=== PATIENT | male | born 1975 | race Caucasian/White ===

== ENCOUNTER 2017-03-22 22:10 | Emergency (ER) | payer MEDICARE ==
[~2017-03-22] VITALS: Ht 180.3 cm; Wt 136.1 kg
[~2017-03-22 22:10] MED LIST: AGM875T PO; CYCL10TA9 PO; DEPAKOTE; DIVA500T PO; DIVA500T7 PO; ESCI10TA55 PO; ESCI20TA45 PO; HC A28.3 PR; HYDR-1231 PO; HYDR25TA4 PO; HYDROCODONE PO; IBUPROFEN PO; INDO50CA PO; LEVO750T24 PO; LEVO75TA6 PO; LORA0.5T PO; NAPR-243 PO; OLAN7.5T9 PO; OMEP40CA36 PO; PNT40TEC PO; POTA10TA36 PO; PROP60CA PO; QUET50TA PO; QUET50TA49 PO; SCR1T PO; SUCR1TAB23 PO; TPR100T PO; TPR25T PO; VNL75T PO
--- OUTSIDE RECORDS SUMMARY | 2017-03-22 22:15 | XMS REPORT | Clinical Summary ---
Author Author [facility] Organization [facility] Address Unknown Phone Unavailable Care Team Providers Care Corporate Development Analyst Name Role Phone PCP Unavailable Source Comments Some departments are not documenting in the electronic medical record. If you do not see the information that you expected, contact Release of Information in the Health Information Management department at [phone] for further assistance in locating additional records.[facility] Allergies Active Allergy Reactions Severity Noted Date Comments Allergen Exr-Ppqwm-Onirb ANAPHYLAXIS 09/03/2008 Bee Current Medications Prescription Sig. Disp. Refills Start End Date Status Date vitamins, multiple Cap Take 1 Cap by mouth Active Daily. topiramate (TOPAMAX) 25 Take 1 Tab by mouth At 90 1 09/05/19 Active mg tablet Bedtime Daily. 09 Active Problems Problem Noted Date Spells 09/04/2008 Social History Tobacco Use Types Packs/Day Years Used Date Never Smoker Alcohol Use Drinks/Week oz/Week Comments Yes 3 Cans of 36.0 beer Sex Assigned at Date Recorded Not on file Last Filed Vital Signs Vital Sign Reading Time Taken Blood Pressure 134/83 09/04/2008 3:00 PM CDT Pulse 76 09/04/2008 3:00 PM CDT Temperature 36.8 C (98.2 F) 09/04/2008 3:00 PM CDT Respiratory Rate - - Oxygen Saturation 98% 09/04/2008 3:00 PM CDT Inhaled Oxygen - - Concentration Weight 98 kg (216 lb) 09/03/2008 2:00 PM CDT Height 180.3 cm (5' 11") 09/03/2008 2:00 PM CDT Body Mass Index 30.13 09/03/2008 2:00 PM CDT Plan of Treatment Health Maintenance Due Date Last Done Comments PHYSICAL (COMPREHENSIVE) 1980 EXAM PERTUSSIS VACCINE 1984 TETANUS VACCINE 1990 INFLUENZA VACCINE 10/27/2016 Results Not on filefrom Last 3 Months
--- OUTSIDE RECORDS SUMMARY | 2017-03-22 22:16 | XMS REPORT | Continuity of Care Document ---
Author Author [facility] Organization [facility] Address Unknown Phone Unavailable Allergies Active Description Code Type Severity Reaction Onset Reported/Identified Relationship to Patient Clinical Status Yes No Known Drug Allergies [id number] Drug Allergy Unknown N/A 06/05/2012 Medications There is no data. Problems Date Dx Coded Attending Type Code Diagnosis Diagnosed By 06/09/2012 Ot 311 06/09/2012 Ot 345.90 06/09/2012 Ot 486 06/09/2012 Ot V15.52 06/09/2012 Ot V45.89 02/10/2014 CRISTHIAN PANDYA Ot 455.6 02/10/2014 CRISTHIAN PANDYA Ot 569.3 02/10/2014 CRISTHIAN PANDYA Ot 578.1 04/03/2014 BYRON SHAW DO Ot 530.11 04/03/2014 BYRON SHAW DO Ot 535.50 04/03/2014 BYRON SHAW DO Ot 553.3 04/03/2014 BYRON SHAW DO Ot 569.0 04/03/2014 BYRON SHAW DO Ot 578.1 08/04/2014 CRISTHIAN PANDYA Ot 276.50 08/04/2014 CRISTHIAN PANDYA Ot 786.50 08/04/2014 CRISTHIAN PANDYA Ot 922.1 08/04/2014 CRISTHIAN PANDYA Ot 922.2 08/04/2014 CRISTHIAN PANDYA Ot E000.8 08/04/2014 CRISTHIAN PANDYA Ot E906.8 08/18/2014 BYRON SHAW DO Ot V72.84 08/18/2014 DOC LY APRN Ot 511.9 08/18/2014 DOC LY APRN Ot 786.52 08/18/2014 DOC LY APRN Ot V15.59 03/23/2016 LY, PETER J PROGRESS DEVELOPER Ot R19.7 DIARRHEA, UNSPECIFIED 03/23/2016 DOC LY PROGRESS DEVELOPER Ot R50.9 FEVER, UNSPECIFIED 03/28/2016 DOC LY PROGRESS DEVELOPER Ot R19.7 DIARRHEA, UNSPECIFIED 03/28/2016 DOC LY PROGRESS DEVELOPER Ot R50.9 FEVER, UNSPECIFIED 03/29/2016 DOC LY PROGRESS DEVELOPER Ot R19.7 DIARRHEA, UNSPECIFIED 03/29/2016 DOC LY PROGRESS DEVELOPER Ot R50.9 FEVER, UNSPECIFIED Procedures There is no data. Results Test Result Range Complete blood count (CBC) with automated white blood cell (WBC) differential - 03/23/16 19:45 Blood leukocytes automated count (number/volume) 5.2 10*3/uL 4.3-11.0 Blood erythrocytes automated count (number/volume) 4.84 10*6/uL 4.35-5.85 Venous blood hemoglobin measurement (mass/volume) 15.2 g/dL 13.3-17.7 Blood hematocrit (volume fraction) 44 % 40-54 Automated erythrocyte mean corpuscular volume 90 [foz_us] 80-99 Automated erythrocyte mean corpuscular hemoglobin (mass per erythrocyte) 31 pg 25-34 Automated erythrocyte mean corpuscular hemoglobin concentration measurement ( mass/volume) 35 g/dL 32-36 Automated erythrocyte distribution width ratio 13.5 % 10.0-14.5 Automated blood platelet count (count/volume) 163 10*3/uL 130-400 Automated blood platelet mean volume measurement 10.5 [foz_us] 7.4-10.4 Automated blood neutrophils/100 leukocytes 61 % 42-75 Automated blood lymphocytes/100 leukocytes 25 % 12-44 Blood monocytes/100 leukocytes 12 % 0-12 Automated blood eosinophils/100 leukocytes 2 % 0-10 Automated blood basophils/100 leukocytes 0 % 0-10 Blood neutrophils automated count (number/volume) 3.1 10*3 1.8-7.8 Blood lymphocytes automated count (number/volume) 1.3 10*3 1.0-4.0 Blood monocytes automated count (number/volume) 0.6 10*3 0.0-1.0 Automated eosinophil count 0.1 10*3/uL 0.0-0.3 Automated blood basophil count (count/volume) 0.0 10*3/uL 0.0-0.1 Comprehensive metabolic panel - 03/23/16 19:45 Serum or plasma sodium measurement (moles/volume) 136 mmol/L 135-145 Serum or plasma potassium measurement (moles/volume) 3.0 mmol/L 3.6-5.0 Serum or plasma chloride measurement (moles/volume) 104 mmol/L 98-107 Carbon dioxide 20 mmol/L 21-32 Serum or plasma anion gap determination (moles/volume) 12 mmol/L 5-14 Serum or plasma urea nitrogen measurement (mass/volume) 16 mg/dL 7-18 Serum or plasma creatinine measurement (mass/volume) 0.95 mg/dL 0.60-1.30 Serum or plasma urea nitrogen/creatinine mass ratio 17 NRG Serum or plasma creatinine measurement with calculation of estimated glomerular filtration rate > NRG Serum or plasma glucose measurement (mass/volume) 131 mg/dL 70-105 Serum or plasma calcium measurement (mass/volume) 8.4 mg/dL 8.5-10.1 Serum or plasma total bilirubin measurement (mass/volume) 0.4 mg/dL 0.1-1.0 Serum or plasma alkaline phosphatase measurement (enzymatic activity/volume) 55 U/L 40-136 Serum or plasma aspartate aminotransferase measurement (enzymatic activity/ volume) 65 U/L 5-34 Serum or plasma alanine aminotransferase measurement (enzymatic activity/volume ) 90 U/L 0-55 Serum or plasma protein measurement (mass/volume) 6.6 g/dL 6.4-8.2 Serum or plasma albumin measurement (mass/volume) 3.8 g/dL 3.2-4.5 Encounters ACCT No. Visit Date/Time Discharge Status Pt. Type Provider Facility Loc./Unit Complaint [id number] 03/23/2016 19:27:00 03/23/2016 22:53:00 DIS Emergency DOC LY APRN [facility] ER DIARRHEA,FEVER [id number] 08/18/2014 16:24:00 08/18/2014 18:37:00 DIS Emergency DOC LY APRN [facility] ER [id number] 08/04/2014 19:31:00 08/04/2014 21:57:00 DIS Emergency CRISTHIAN PANDYA [facility] ER [id number] 04/03/2014 12:06:00 04/03/2014 15:55:00 DIS Outpatient BYRON SHAW DO [facility] SDC [id number] 03/28/2014 06:15:00 03/28/2014 23:59:59 CLS Outpatient BYRON SHAW DO [facility] PREOP [id number] 02/10/2014 14:25:00 02/10/2014 17:08:00 DIS Emergency CRISTHIAN PANDYA [facility] ER [id number] 06/05/2012 20:30:00 Document Registration
[2017-03-22] MEDS ORDERED: NYSTATIN ORAL SUSP 5 ML UDC PO ONE (22:30)
[2017-03-22] MEDS ORDERED: FLUCONAZOLE 150 MG TABLET (ED ONLY) PO ONE (22:30)
[2017-03-22] MEDS ORDERED: NYST1000 PO (22:51)
--- NOTE | 2017-03-22 22:52 | ED EENT ---
History of Present Illness General Chief Complaint: Oral/Throat Problems Stated Complaint: SORE THROAT,COUGH Nursing Triage Note: c/o sore throat Source: patient Exam Limitations: no limitations History of Present Illness Time seen by provider: 22:15 Initial Comments This 41-year-old gentleman presents to the emergency room with complaints of burning and soreness in the tongue and throat. He had a laminectomy performed on L4/5 on March 17. His reports there are white spots in his throat. His glands are swollen. He was not given any steroids or antibiotics that he is aware of but his posterior pharynx and the roof of his mouth has the appearance of thrush. He has been afebrile. Allergies and Home Medications Allergies Coded Allergies: No Known Drug Allergies (Unverified , 06/05/12) Home Medications Divalproex Sodium 500 Mg Tablet.dr, 1 TAB PO UD, #120 (Reported) Escitalopram Oxalate 10 Mg Tablet, 1 TAB PO DAILY, #30 (Reported) Escitalopram Oxalate 20 Mg Tablet, 1 TAB PO DAILY, #30 (Reported) Hydrochlorothiazide 25 Mg Tablet, 1 TAB PO UD, #30 (Reported) Hydrocodone Bit/Acetaminophen 1 Tab Tablet, 1 TAB PO Q4H PRN for PAIN, #14 Ref 0 Prescribed by: CRISTHIAN TONG on 08/04/14 2142 Levothyroxine Sodium 75 Mcg Tablet, 1 TAB PO DAILY, #30 (Reported) Nystatin 100,000 Unit/1 Ml Oral.susp, 5 ML PO QID, #120 Prescribed by: DESHAWN HOLLY on 03/22/17 2251 Olanzapine 7.5 Mg Tablet, 1 TAB PO DAILY, #30 (Reported) Propranolol HCl 60 Mg Cap.sa.24h, 1 CAP PO DAILY, #30 (Reported) Venlafaxine Hcl 75 Mg Tab, 150 MG PO DAILY, (Reported) Review of Systems Constitutional: no symptoms reported Eyes: No Symptoms Reported Ears: No Symptoms Reported Nose: no symptoms reported Mouth: see HPI Throat: see HPI Respiratory: no symptoms reported Cardiovascular: no symptoms reported Gastrointestinal: no symptoms reported Musculoskeletal: no symptoms reported Skin: no symptoms reported Neurological: No Symptoms Reported Hematologic/Lymphatic: See HPI Immunological/Allergic: no symptoms reported Past Dfzfmqe-Yzbwyq-Jlmgcm Hx Patient Social History Alcohol Use: Denies Use Number of Drinks Today: AA Alcohol Beverage of Choice: Beer Recreational Drug Use: No Smoking Status: Never a Smoker Recent Foreign Travel: No Contact w/Someone Who Travel: No Recent Infectious Disease Expo: No Recent Hopitalizations: No Physical Abuse: No Sexual Abuse: No Immunizations Up To Date Tetanus Booster (TDap): Less than 5yrs Date of Pneumonia Vaccine: Apr 14, 2011 Date of Influenza Vaccine: Dec 27, 2013 Seasonal Allergies Seasonal Allergies: No Surgeries History of Surgeries: Yes (ROTATOR CUFF REPAIR RT SHOULDER/LT TORN LIGAMENT REPAIR ) Surgeries: Orthopedic Respiratory History of Respiratory Disorde: Yes (SLEEP APNEA, USES C-PAP) Respiratory Disorders: Pneumonia, Chronic Bronchitis Currently Using CPAP: Yes Currently Using BIPAP: No Cardiovascular History of Cardiac Disorders: Yes Cardiac Disorders: Hypertension Neurological History of Neurological Disord: Yes (HEAD INJURY 2008 (BUILDING COLAPSE)) Neurological Disorders: Seizure Disorder Reproductive System Hx Reproductive Disorders: No Gastrointestinal History of Gastrointestinal Di: Yes Gastrointestinal Disorders: Gastroesophageal Reflux Musculoskeletal History of Musculoskeletal Dis: Yes (HERNIATED DISC) Musculoskeletal Disorders: Arthritis, Fractures, Gout Endocrine History of Endocrine Disorders: Yes Endocrine Disorders: Hypothyroidsim Cancer History of Cancer: No Psychosocial History of Psychiatric Problem: Yes Behavioral Health Disorders: Anxiety Suicide Risk Score: 0 Integumentary History of Skin or Integumenta: No Blood Transfusions History of Blood Disorders: No Physical Exam Vital Signs Vital Sign - Last 12Hours 03/22/17 22:17 Temp 99.1 Pulse 103 Resp 18 B/P (MAP) 140/95 (110) Pulse Ox 98 General Appearance: WD/WN, no apparent distress Eyes: bilateral eye normal inspection, bilateral eye EOMI Ears: bilateral ear auricle normal, bilateral ear canal normal, bilateral ear TM normal Nose: normal inspection Mouth/Throat: other (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, no motor/sensory deficits, alert, normal mood/affect, oriented x 3 Skin: normal color, warm/dry Progress/Results/Core Measures Results/Orders My Orders Orders - DESHAWN COLBERT MD Fluconazole Tablet (Ed Only) (Diflucan T (03/22/17 22:30) Nystatin Oral Suspension (Mycostatin O (03/22/17 22:30) Medications Given in ED Current Medications Medications Dose Ordered Sig/Asaf Route Start Time Stop Time Status Last Admin Dose Admin Fluconazole 150 mg ONCE ONCE PO 03/22/17 22:30 03/22/17 22:31 DC 03/22/17 22:41 150 MG Nystatin 5 ml ONCE ONCE PO 03/22/17 22:30 03/22/17 22:31 DC 03/22/17 22:41 5 ML Vital Signs/I&O Vital Sign - Last 12Hours 03/22/17 03/22/17 22:17 22:54 Temp 99.1 99.1 Pulse 103 103 Resp 18 18 B/P (MAP) 140/95 (110) Pulse Ox 98 98 Blood Pressure Mean: 110 Progress Note : Progress Note Throat oropharynx had the appearance of thrush. Patient was given a dose of Diflucan and nystatin swish and swallow. A nystatin swish and swallow prescription was given to follow. Departure Impression Impression: Primary Impression: Oropharyngeal candidiasis Disposition: 01 HOME, SELF-CARE Condition: Improved Departure-Patient Inst. Decision time for Depature: 22:25 Referrals: SHO BLOOD MD (PCP/Family) Primary Care Physician Patient Instructions: Thrush Add. Discharge Instructions: Use the swish and swallow as prescribed. Try to swish for up to a minute and gargle prior to swallowing. If you are not improving after 48 hours of treatment, return to care for reevaluation. All discharge instructions reviewed with patient and/or family. Voiced understanding. Scripts Nystatin (Nystatin) 100,000 Unit/1 Ml Oral.susp 5 ML PO QID, #120 ML Prov: DESHAWN COLBERT MD 03/22/17 DESHAWN COLBERT MD Mar 22, 2017 22:52
[2017-03-22 22:54] VITALS: BP 140/95
== END 2017-03-22 22:55 | disposition home or self-care (01) ==
LOC: EDUNIT# 22:10 → ER 22:11
DX: B37.0 Candidal stomatitis (principal); G47.30 Sleep apnea, unspecified; I10 Essential (primary) hypertension; E03.9 Hypothyroidism, unspecified; F41.9 Anxiety disorder, unspecified; M10.9 Gout, unspecified; K21.9 Gastro-esophageal reflux disease without esophagitis; G40.909 Epilepsy, unspecified, not intractable, without status epilepticus; Z87.01 Personal history of pneumonia (recurrent)
CPT/HCPCS: 99283

== ENCOUNTER 2017-04-07 17:42 | Emergency (ER) | payer MEDICARE ==
[~2017-04-07] VITALS: Ht 180.3 cm; Wt 130.6 kg
[~2017-04-07 17:42] MED LIST changes: +NYST1000 PO
[2017-04-07] MEDS ORDERED: TETANUS,DIPTH,PERTUSS P/F (BOOSTRIX) 0.5 ML VIAL IM STA (17:46)
--- NOTE | 2017-04-07 18:20 | Diagnostic Imaging Report ---
INDICATION: Laceration to the posterior aspect of the elbow with a chainsaw. FINDINGS: Alignment of the elbow is normal. There is no acute fracture. There is no joint effusion. There is no soft tissue gas or retained foreign body. IMPRESSION: 1. No evidence of osseous injury at the elbow. There is no joint effusion. The alignment is normal. There is no soft tissue gas or retained foreign body. Dictated by: Dictated on workstation # [id number]
--- NOTE | 2017-04-07 18:32 | ED Upper Extremity ---
General Chief Complaint: Upper Extremity Stated Complaint: LEFT ARM LAC Nursing Triage Note: PT REPORTS HE INJURED L ELBOW WHILE USING CHAINSAW. LAC TO L ELBOW, NOT ACTIVELY BLEEDING. Nursing Sepsis Screen: No Definite Risk Source: patient, spouse Exam Limitations: no limitations History of Present Illness Time seen by provider: 18:32 Allergies and Home Medications Allergies Coded Allergies: No Known Drug Allergies (Unverified , 06/05/12) Home Medications Divalproex Sodium 500 Mg Tablet.dr, 1 TAB PO UD, #120 (Reported) Escitalopram Oxalate 10 Mg Tablet, 1 TAB PO DAILY, #30 (Reported) Escitalopram Oxalate 20 Mg Tablet, 1 TAB PO DAILY, #30 (Reported) Hydrochlorothiazide 25 Mg Tablet, 1 TAB PO UD, #30 (Reported) Hydrocodone Bit/Acetaminophen 1 Tab Tablet, 1 TAB PO Q4H PRN for PAIN, #14 Ref 0 Prescribed by: CRISTHIAN TONG on 08/04/14 2142 Levothyroxine Sodium 75 Mcg Tablet, 1 TAB PO DAILY, #30 (Reported) Nystatin 100,000 Unit/1 Ml Oral.susp, 5 ML PO QID, #120 Prescribed by: DESHAWN HOLLY on 03/22/17 2251 Olanzapine 7.5 Mg Tablet, 1 TAB PO DAILY, #30 (Reported) Propranolol HCl 60 Mg Cap.sa.24h, 1 CAP PO DAILY, #30 (Reported) Venlafaxine Hcl 75 Mg Tab, 150 MG PO DAILY, (Reported) Past Bcvuovy-Wroirl-Cpivbe Hx Patient Social History Alcohol Use: Denies Use Number of Drinks Today: AA Alcohol Beverage of Choice: Beer Recreational Drug Use: No Smoking Status: Never a Smoker Recent Foreign Travel: No Contact w/Someone Who Travel: No Recent Infectious Disease Expo: No Recent Hopitalizations: No Physical Abuse: No Sexual Abuse: No Mistreated: No Immunizations Up To Date Tetanus Booster (TDap): Less than 5yrs Date of Pneumonia Vaccine: Apr 14, 2011 Date of Influenza Vaccine: Dec 27, 2013 Seasonal Allergies Seasonal Allergies: No Surgeries History of Surgeries: Yes (ROTATOR CUFF REPAIR RT SHOULDER/LT TORN LIGAMENT REPAIR, NECK, BACK ) Surgeries: Orthopedic Respiratory History of Respiratory Disorde: Yes (SLEEP APNEA, USES C-PAP) Respiratory Disorders: Pneumonia, Chronic Bronchitis Currently Using CPAP: Yes Currently Using BIPAP: No Cardiovascular History of Cardiac Disorders: Yes Cardiac Disorders: Hypertension Neurological History of Neurological Disord: Yes (HEAD INJURY 2008 (BUILDING COLAPSE)) Neurological Disorders: Headaches /Migraines, Seizure Disorder, Traumatic Brain Injury Reproductive System Hx Reproductive Disorders: No Gastrointestinal History of Gastrointestinal Di: Yes Gastrointestinal Disorders: Gastroesophageal Reflux Musculoskeletal History of Musculoskeletal Dis: Yes (HERNIATED DISC) Musculoskeletal Disorders: Arthritis, Fractures, Gout Endocrine History of Endocrine Disorders: Yes Endocrine Disorders: Hypothyroidsim, Diabetes, Non-Insulin dep Cancer History of Cancer: No Psychosocial History of Psychiatric Problem: Yes Behavioral Health Disorders: Anxiety Suicide Risk Score: 0 Integumentary History of Skin or Integumenta: No Blood Transfusions History of Blood Disorders: No Physical Exam Vital Signs Vital Sign - Last 12Hours 04/07/17 17:48 Temp 98.2 Pulse 76 Resp 18 B/P (MAP) 158/90 (112) Pulse Ox 97 Capillary Refill : Less Than 3 Seconds Progress/Results/Core Measures Results/Orders My Orders Orders - CRISTHIAN TONG Lidocaine 1% (Xylocaine 1%) (04/07/17 18:45) Ibuprofen Tablet (Motrin Tablet) (04/07/17 18:44) Medications Given in ED Current Medications Medications Dose Ordered Sig/Asaf Route Start Time Stop Time Status Last Admin Dose Admin Lidocaine HCl 50 ml ONCE ONCE IJ 04/07/17 18:45 04/07/17 18:47 DC 04/07/17 19:01 50 ML Vital Signs/I&O Vital Sign - Last 12Hours 04/07/17 17:48 Temp 98.2 Pulse 76 Resp 18 B/P (MAP) 158/90 (112) Pulse Ox 97 Blood Pressure Mean: 112 Departure Impression Disposition: 01 HOME, SELF-CARE Condition: Improved Departure-Patient Inst. Decision time for Depature: 20:03 Referrals: MIRIAN CANALES MD, JONATHAN L MD (PCP/Family) Primary Care Physician Patient Instructions: Laceration Repair With Stitches (DC) Add. Discharge Instructions: All discharge instructions reviewed with patient and/or family. Voiced understanding. Medications as instructed. Continue usual home medications. Elevate the left elbow on pillows. Ice pack for 20 minute intervals as needed. Tomorrow morning you may remove the bandage, shower with antibacterial soap. Pat dry and apply Triple Antibiotic ointment twice daily for 3 days and cover with a bandage. Return to the emergency department for worsened pain, redness, fever, drainage, or any other concerns. Scripts Sulfamethoxazole/Trimethoprim (Bactrim Ds Tablet) 1 Each Tablet 1 EACH PO BID, #14 TAB 0 Refills Prov: CRISTHIAN TONG 04/07/17 CRISTHIAN TONG Apr 07, 2017 18:32
[2017-04-07] MEDS ORDERED: IBUPROFEN TABLET 200 MG TAB PO STA (18:44)
[2017-04-07] MEDS ORDERED: LIDOCAINE 1% INJ 50 ML (XYLOCAINE) VIAL IJ ONE (18:45)
[2017-04-07] MEDS ORDERED: SULF1TAB35 PO (20:07)
[2017-04-07 20:10] VITALS: BP 142/89
--- OUTSIDE RECORDS SUMMARY | 2017-04-08 19:16 | XMS REPORT | Continuity of Care Document ---
Author Author [facility] Organization [facility] Address Unknown Phone Unavailable Allergies Active Description Code Type Severity Reaction Onset Reported/Identified Relationship to Patient Clinical Status Yes No Known Drug Allergies [id number] Drug Allergy Unknown N/A 06/05/2012 Medications There is no data. Problems Date Dx Coded Attending Type Code Diagnosis Diagnosed By 06/09/2012 Ot 311 06/09/2012 Ot 345.90 06/09/2012 Ot 486 06/09/2012 Ot V15.52 06/09/2012 Ot V45.89 02/10/2014 CRISTHIAN PANDYA Ot 455.6 02/10/2014 CRISTHIAN PADNYA Ot 569.3 02/10/2014 CRISTHIAN PANDYA Ot 578.1 04/03/2014 BYRON SHAW DO Ot 530.11 04/03/2014 BYRON SHAW DO Ot 535.50 04/03/2014 BYRON SHAW DO Ot 553.3 04/03/2014 BYRON SHAW DO Ot 569.0 04/03/2014 BYRNO SHAW DO Ot 578.1 08/04/2014 CRISTHIAN PANDYA Ot 276.50 08/04/2014 CRISTHIAN PANDYA Ot 786.50 08/04/2014 CRISTHIAN PANDYA Ot 922.1 08/04/2014 CRISTHIAN PANDYA Ot 922.2 08/04/2014 CRISTHIAN PANDYA Ot E000.8 08/04/2014 CRISTHIAN PANDYA Ot E906.8 08/18/2014 BYRON SHAW DO Ot V72.84 08/18/2014 DOC LY APRN Ot 511.9 08/18/2014 DOC LY APRN Ot 786.52 08/18/2014 DOC LY APRN Ot V15.59 03/23/2016 LY, 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 Type Provider Facility Loc./Unit Complaint [id number] 03/22/2017 22:11:00 03/22/2017 22:55:00 DIS Emergency FILEMON OCHOA, DESHAWN Bui [facility] ER SORE THROAT,COUGH [id number] 03/23/2016 19:27:00 03/23/2016 22:53:00 DIS Emergency DOC LY APRN [facility] ER DIARRHEA,FEVER [id number] 08/18/2014 16:24:00 08/18/2014 18:37:00 DIS Emergency DOC LY APRN [facility] ER [id number] 08/04/2014 19:31:00 08/04/2014 21:57:00 DIS Emergency CRISTHIAN PANDYA [facility] ER [id number] 04/03/2014 12:06:00 04/03/2014 15:55:00 DIS Outpatient BYRON SHAW DO [facility] [id number] 03/28/2014 06:15:00 03/28/2014 23:59:59 CLS Outpatient BYRON SHAW DO [facility] PREOP [id number] 02/10/2014 14:25:00 02/10/2014 17:08:00 DIS Emergency CRISTHIAN PANDYA [facility] ER [id number] 06/05/2012 20:30:00 Document Registration
--- OUTSIDE RECORDS SUMMARY | 2017-04-08 19:16 | XMS REPORT | Clinical Summary ---
Author Author [facility] Organization [facility] Address Unknown Phone Unavailable Care Team Providers Care Fish Pitcher Name Role Phone PCP Unavailable Source Comments Some departments are not documenting in the electronic medical record. If you do not see the information that you expected, contact Release of Information in the Health Information Management department at [phone] for further assistance in locating additional records.[facility] Allergies Active Allergy Reactions Severity Noted Date Comments Allergen Srz-Jmtqb-Xtuis ANAPHYLAXIS 09/03/2008 Bee Current Medications Prescription Sig. [...]
== END 2017-04-07 20:12 | disposition home or self-care (01) ==
LOC: EDUNIT# 17:42 → ER 17:43
DX: S51.012A Laceration without foreign body of left elbow, initial encounter (principal); I10 Essential (primary) hypertension; G43.909 Migraine, unspecified, not intractable, without status migrainosus; G40.909 Epilepsy, unspecified, not intractable, without status epilepticus; K21.9 Gastro-esophageal reflux disease without esophagitis; M10.9 Gout, unspecified; E03.9 Hypothyroidism, unspecified; E11.9 Type 2 diabetes mellitus without complications; F41.9 Anxiety disorder, unspecified; Z87.820 Personal history of traumatic brain injury; Z87.01 Personal history of pneumonia (recurrent); W29.3XXA Contact with powered garden and outdoor hand tools and machinery, initial encounter
CPT/HCPCS: 12032; 73080; 90471; 90715

== ENCOUNTER 2017-12-24 13:15 | Emergency (ER) | payer MEDICARE ==
[~2017-12-24] VITALS: Ht 180.3 cm; Wt 131.5 kg
[~2017-12-24 13:15] MED LIST changes: +DIVA-76 PO; -DIVA500T7 PO; +SULF1TAB35 PO
--- OUTSIDE RECORDS SUMMARY | 2017-12-24 13:20 | XMS REPORT | Clinical Summary ---
Author Author [facility] Organization [facility] Address Unknown Phone Unavailable Care Team Providers Care Bullet Maker Name Role Phone Self, Referral PCP Unavailable Javon George MD Unavailable Source Comments Some departments are not documenting in the electronic medical record. If you do not see the information that you expected, contact Release of Information in the Health Information Management department at [phone] for further assistance in locating additional records.[facility] Allergies Active Allergy Reactions Severity Noted Date Comments Allergen Lje-Shwje-Xcrly ANAPHYLAXIS 09/03/2008 Bee Current Medications Prescription Sig. [...] PHYSICAL (COMPREHENSIVE) 1980 EXAM PERTUSSIS VACCINE 1984 HIV SCREENING 1988 TETANUS VACCINE 1990 INFLUENZA VACCINE 12/27/2017 Results Not on filefrom Last 3 Months
--- OUTSIDE RECORDS SUMMARY | 2017-12-24 13:21 | XMS REPORT | Continuity of Care Document ---
Author Author [facility] Organization [facility] Address Unknown Phone Unavailable Allergies Active Description Code Type Severity Reaction Onset Reported/Identified Relationship to Patient Clinical Status Yes No Known Drug Allergies [id number] Drug Allergy Unknown N/A 06/05/2012 Medications There [...] APRN Ot V15.59 03/23/2016 LY, PETER J INFORMATICA ARCHITECT Ot R19.7 DIARRHEA, UNSPECIFIED 03/23/2016 DOC LY INFORMATICA ARCHITECT Ot R50.9 FEVER, UNSPECIFIED 03/28/2016 DOC LY INFORMATICA ARCHITECT Ot R19.7 DIARRHEA, UNSPECIFIED 03/28/2016 DOC LY INFORMATICA ARCHITECT Ot R50.9 FEVER, UNSPECIFIED 03/29/2016 DOC LY INFORMATICA ARCHITECT Ot R19.7 DIARRHEA, UNSPECIFIED 03/29/2016 DOC LY INFORMATICA ARCHITECT Ot R50.9 FEVER, UNSPECIFIED 03/22/2017 FILEMON OCHOA, DESHAWN T Ot B37.0 CANDIDAL STOMATITIS 03/22/2017 FILEMON COHOA, DESHAWN T Ot E03.9 HYPOTHYROIDISM, UNSPECIFIED 03/22/2017 FILEMON OCHOA, DESHAWN T Ot F41.9 ANXIETY DISORDER, UNSPECIFIED 03/22/2017 FILEMON OCHOA, DESHAWN T Ot G40.909 EPILEPSY, UNSP, NOT INTRACTABLE, WITHOUT 03/22/2017 FILEMON OCHOA, DESHAWN T Ot G47.30 SLEEP APNEA, UNSPECIFIED 03/22/2017 FILEMON OCHOA, DESHAWN T Ot I10 ESSENTIAL (PRIMARY) HYPERTENSION 03/22/2017 FILEMON OCHOA, DESHAWN T Ot J02.9 ACUTE PHARYNGITIS, UNSPECIFIED 03/22/2017 FILEMON OCHOA, DESHAWN T Ot K21.9 GASTRO-ESOPHAGEAL REFLUX DISEASE WITHOUT 03/22/2017 FILEMON OCHOA, DESHAWN T Ot M10.9 GOUT, UNSPECIFIED 03/22/2017 FILEMON OCHOA, DESHAWN T Ot Z87.01 PERSONAL HISTORY OF PNEUMONIA (RECURRENT 04/07/2017 CRISTHIAN PANDYA Ot E03.9 HYPOTHYROIDISM, UNSPECIFIED 04/07/2017 CRISTHIAN PANDYA Ot E11.9 TYPE 2 DIABETES MELLITUS WITHOUT COMPLIC 04/07/2017 CRISTHIAN PANDYA Ot F41.9 ANXIETY DISORDER, UNSPECIFIED 04/07/2017 CRISTHIAN PANDYA Ot G40.909 EPILEPSY, UNSP, NOT INTRACTABLE, WITHOUT 04/07/2017 CRISTHIAN PANDYA Ot G43.909 MIGRAINE, UNSP, NOT INTRACTABLE, WITHOUT 04/07/2017 CRISTHIAN PANDYA Ot I10 ESSENTIAL (PRIMARY) HYPERTENSION 04/07/2017 CRISTHIAN PANDYA Ot K21.9 GASTRO-ESOPHAGEAL REFLUX DISEASE WITHOUT 04/07/2017 CRISTHIAN PANDYA Ot M10.9 GOUT, UNSPECIFIED 04/07/2017 CRISTHIAN PANDYA Ot S51.012A LACERATION WITHOUT FOREIGN BODY OF LEFT 04/07/2017 CRISTHIAN PANDYA Ot W29.3XXA CNTCT W POWERED GARDEN AND OUTDOOR HAND 04/07/2017 CRISTHIAN PANDYA Ot Z87.01 PERSONAL HISTORY OF PNEUMONIA (RECURRENT 04/07/2017 CRISTHIAN PANDYA Ot Z87.820 PERSONAL HISTORY OF TRAUMATIC BRAIN INJU Procedures There is no data. Results Test [...] Status Pt. Type Provider Facility Loc./Unit Complaint [id number] 04/07/2017 17:43:00 04/07/2017 20:12:00 DIS Emergency CRISTHIAN PANDYA [facility] ER LEFT ARM LAC [id number] 03/22/2017 22:11:00 03/22/2017 22:55:00 DIS Emergency DESHAWN COLBERT MD [facility] ER SORE THROAT,COUGH [id number] 03/23/2016 19:27:00 03/23/2016 22:53:00 DIS Emergency DOC LY APRN [facility] ER DIARRHEA,FEVER [id number] 08/18/2014 16:24:00 08/18/2014 18:37:00 DIS Emergency DOC LY INFORMATICA ARCHITECT [facility] ER [id number] 08/04/2014 19:31:00 08/04/2014 21:57:00 DIS Emergency CRISTHIAN PANDYA [facility] ER [id number] 04/03/2014 12:06:00 04/03/2014 15:55:00 DIS Outpatient BYRON SHAW DO [facility] [id number] 03/28/2014 06:15:00 03/28/2014 23:59:59 CLS Outpatient BYRON SHAW DO [facility] PREOP [id number] 02/10/2014 14:25:00 02/10/2014 17:08:00 DIS Emergency CRISTHIAN PANDYA [facility] ER [id number] 06/05/2012 20:30:00 Document Registration
--- NOTE | 2017-12-24 13:38 | ED Lower Extremity ---
General Chief Complaint: Lower Extremity Stated Complaint: R FOOT PAIN Source: patient Exam Limitations: no limitations History of Present Illness Date Seen by Provider: Dec 24, 2017 Time Seen by Provider: 13:36 Initial Comments To ER with reports of right anterolateral ankle and foot pain present for about 3 months. No known injury. He states that he has a prior head injury and fall all the times he may have injured it and just not remembered. He states that he has seen the chiropractor which did not help with the pain. The pain is worse with weightbearing. Severity: moderate Pain/Injury Location: right foot, right ankle Method of Injury: unknown Modifying Factors: Worse With Movement Allergies and Home Medications Allergies Coded Allergies: No Known Drug Allergies (Unverified , 06/05/12) Home Medications Divalproex Sodium 500 Mg Tablet.dr, 1 TAB PO UD, (Reported) Escitalopram Oxalate 10 Mg Tablet, 1 TAB PO DAILY, (Reported) Escitalopram Oxalate 20 Mg Tablet, 1 TAB PO DAILY, (Reported) Hydrochlorothiazide 25 Mg Tablet, 1 TAB PO UD, (Reported) Hydrocodone Bit/Acetaminophen 1 Tab Tablet, 1 TAB PO Q4H PRN for PAIN Prescribed by: CRISTHIAN TONG on 08/04/14 2142 Levothyroxine Sodium 75 Mcg Tablet, 1 TAB PO DAILY, (Reported) Nystatin 100,000 Unit/1 Ml Oral.susp, 5 ML PO QID Prescribed by: DESHAWN HOLLY on 03/22/17 2251 Olanzapine 7.5 Mg Tablet, 1 TAB PO DAILY, (Reported) Propranolol HCl 60 Mg Cap.sa.24h, 1 CAP PO DAILY, (Reported) Sulfamethoxazole/Trimethoprim 1 Each Tablet, 1 EACH PO BID Prescribed by: CRISTHIAN TONG on 04/07/172006 Venlafaxine Hcl 75 Mg Tab, 150 MG PO DAILY, (Reported) Patient Home Medication List Home Medication List Reviewed: Yes Review of Systems Constitutional: see HPI EENTM: see HPI Respiratory: no symptoms reported Cardiovascular: no symptoms reported Genitourinary: no symptoms reported Musculoskeletal: see HPI, joint pain Skin: no symptoms reported Psychiatric/Neurological: No Symptoms Reported Past Stnwvbh-Qcwcwk-Dtzcwm Hx Patient Social History Alcohol Beverage of Choice: Beer Recent Hopitalizations: No Immunizations Up To Date Tetanus Booster (TDap): Less than 5yrs Date of Pneumonia Vaccine: Apr 14, 2011 Date of Influenza Vaccine: Dec 27, 2013 Seasonal Allergies Seasonal Allergies: No Past Medical History Surgeries: Yes (ROTATOR CUFF REPAIR RT SHOULDER/LT TORN LIGAMENT REPAIR, NECK, BACK ) Orthopedic Respiratory: Yes (SLEEP APNEA, USES C-PAP) Pneumonia, Chronic Bronchitis Currently Using CPAP: Yes Currently Using BIPAP: No Cardiac: Yes Hypertension Neurological: Yes (HEAD INJURY 2008 (BUILDING COLAPSE)) Headaches /Migraines, Seizure Disorder, Traumatic Brain Injury Reproductive Disorders: No Gastrointestinal: Yes Gastroesophageal Reflux Musculoskeletal: Yes (HERNIATED DISC) Arthritis, Fractures, Gout Endocrine: Yes Hypothyroidsim, Diabetes, Non-Insulin dep Cancer: No Psychosocial: Yes Anxiety Integumentary: No Blood Disorders: No Family Medical History No Pertinent Family Hx Physical Exam Vital Signs Vital Signs - First Documented 12/24/17 13:29 Temp 96.6 Pulse 89 Resp 14 B/P (MAP) 139/90 (106) Pulse Ox 99 Capillary Refill : Height, Weight, BMI Height: 5'11.00" Weight: 288lbs. oz. 130.717606jj; BMI Method:Stated General Appearance: WD/WN, no apparent distress HEENT: PERRL/EOMI, normal ENT inspection Respiratory: no respiratory distress, no accessory muscle use Hips: bilateral hip non-tender, bilateral hip normal inspection, bilateral hip normal range of motion Legs: bilateral leg non-tender, bilateral leg normal inspection, bilateral leg normal range of motion Knees: bilateral knee non-tender, bilateral knee normal inspection, bilateral knee normal range of motion Ankles: right ankle pain (anterolateral but there is no erythema ecchymosis or deformity), right ankle soft tissue tenderness Feet: bilateral foot non-tender, bilateral foot normal inspection, bilateral foot normal range of motion Neurologic/Psychiatric: alert, normal mood/affect, oriented x 3 Skin: normal color, warm/dry Progress/Results/Core Measures Results/Orders My Orders Orders - DOC LY APRN Ankle, Right, 3 Views (12/24/17 13:34) Foot, Right, 3 View (12/24/17 13:34) Vital Signs/I&O 12/24/17 13:29 Temp 96.6 Pulse 89 Resp 14 B/P (MAP) 139/90 (106) Pulse Ox 99 Departure Impression Primary Impression: Right ankle pain Disposition: 01 HOME, SELF-CARE Condition: Stable Departure-Patient Inst. Decision time for Depature: 13:47 Referrals: EVELIN SWARTZ DPM, JONATHAN L MD (PCP/Family) Primary Care Physician MEHNAZ ORTIZ DPM Patient Instructions: Ankle Strengthening Exercises Add. Discharge Instructions: 1. Wear the boot when you're up walking around 2. Tylenol/ibuprofen for pain control 3. Call one of the podiatrists listed or an orthopedist/general manager of your choosing for follow-up. All discharge instructions reviewed with patient and/or family. Voiced understanding. Images Extremities-Lower 1 - Tenderness DOC LY RISK CONTROL CONSULTANT Dec 24, 2017 13:38
--- NOTE | 2017-12-24 13:57 | Diagnostic Imaging Report ---
INDICATION: Right foot pain. AP, oblique, and lateral views of the right foot are obtained. FINDINGS: No fracture or acute bony abnormality is seen. Joint spaces are unremarkable. IMPRESSION: Negative right foot. Dictated by: Dictated on workstation # [id number]
--- NOTE | 2017-12-24 13:58 | Diagnostic Imaging Report ---
Indication: Right ankle pain AP, oblique, and lateral views of the right ankle are obtained No fracture or acute bony abnormality is seen. Joint spaces are unremarkable. Impression: Negative right ankle. Dictated by: Dictated on workstation # [id number]
[2017-12-24 15:03] VITALS: BP 139/90
== END 2017-12-24 15:03 | disposition home or self-care (01) ==
LOC: EDUNIT# 13:15 → ER 13:16
DX: M25.571 Pain in right ankle and joints of right foot (principal); G47.30 Sleep apnea, unspecified; I10 Essential (primary) hypertension; G43.909 Migraine, unspecified, not intractable, without status migrainosus; G40.909 Epilepsy, unspecified, not intractable, without status epilepticus; K21.9 Gastro-esophageal reflux disease without esophagitis; E03.9 Hypothyroidism, unspecified; E11.9 Type 2 diabetes mellitus without complications; F41.9 Anxiety disorder, unspecified; Z87.820 Personal history of traumatic brain injury; Z87.01 Personal history of pneumonia (recurrent)
CPT/HCPCS: 73610; 73630

== ENCOUNTER 2018-10-21 14:06 | Emergency (ER) | payer MEDICARE ==
[~2018-10-21] VITALS: Ht 180.3 cm; Wt 129.3 kg
[2018-10-21 15:03] LABS: BILIRUBIN,URINE NEGATIVE (NEGATIVE); CLARITY,URINE CLEAR; COLOR,URINE YELLOW; GLUCOSE, URINE (UA) NEGATIVE (NEGATIVE); KETONES,URINE NEGATIVE (NEGATIVE); LEUKOCYTE ESTERASE ,URINE NEGATIVE (NEGATIVE); NITRITE,URINE NEGATIVE (NEGATIVE); PH,URINE 7 (5-9); PROTEIN,URINE NEGATIVE (NEGATIVE); UROBILINOGEN,URINE NORMAL (NORMAL)
--- NOTE | 2018-10-21 15:15 | NUR ---
This nurse assisted Safia Moon with groin and hernia exam.
[2018-10-21] MEDS ORDERED: CYCLOBENZAPRINE 10 MG (FLEXERIL) TAB PO STA (15:18)
[2018-10-21 15:19] LABS: BACTERIA,URINE NEGATIVE /HPF
--- NOTE | 2018-10-21 15:25 | ED GI ---
General Chief Complaint: Abdominal/GI Problems Stated Complaint: LEFT SIDE ABD PAIN Nursing Triage Note: PATIENT STATES THAT HE STARTED HAVING LLQ PAIN ABOUT ONE HOUR AGO. LAST BM WAS TODAY X2 AND IT WAS NORMAL. IT HURTS MORE WHEN MOVING. Sepsis Screen: No Definite Risk History of Present Illness Date Seen by Provider: Oct 21, 2018 Time Seen by Provider: 15:00 Initial Comments 43-year-old male presents for left lower abdomen and groin pain. He states the pain started approximately 2 hours ago after physical activity around his home. He denies any previous history of left groin her abdominal problems. He's had a hydrocele on the right which required surgery approximately one year ago. He denies any pain radiating into his penis or testicles. He has not noted a hernia. No associated nausea or vomiting. Has a chronic history of back pain and had a nerve stimulator in place. He denies any pain radiating into either leg. Timing/Duration: 1-3 Hours Severity/Quality: Moderate Location: LLQ Radiation: No Radiation Associated Symptoms: Denies Symptoms Allergies and Home Medications Allergies Coded Allergies: No Known Drug Allergies (Unverified , 06/05/12) Home Medications Divalproex Sodium 500 Mg Tablet.dr, 1 TAB PO UD, (Reported) Escitalopram Oxalate 10 Mg Tablet, 1 TAB PO DAILY, (Reported) Escitalopram Oxalate 20 Mg Tablet, 1 TAB PO DAILY, (Reported) Hydrochlorothiazide 25 Mg Tablet, 1 TAB PO UD, (Reported) Hydrocodone Bit/Acetaminophen 1 Tab Tablet, 1 TAB PO Q4H PRN for PAIN Prescribed by: CRISTHIAN TONG on 08/04/142141 Levothyroxine Sodium 75 Mcg Tablet, 1 TAB PO DAILY, (Reported) Nystatin 100,000 Unit/1 Ml Oral.susp, 5 ML PO QID Prescribed by: DESHAWN HOLLY on 03/22/17 2251 Olanzapine 7.5 Mg Tablet, 1 TAB PO DAILY, (Reported) Propranolol HCl 60 Mg Cap.sa.24h, 1 CAP PO DAILY, (Reported) Sulfamethoxazole/Trimethoprim 1 Each Tablet, 1 EACH PO BID Prescribed by: CRISTHIAN TONG on 04/07/172006 Venlafaxine Hcl 75 Mg Tab, 150 MG PO DAILY, (Reported) Patient Home Medication List Home Medication List Reviewed: Yes Review of Systems Review of Systems Constitutional: no symptoms reported, see HPI Gastrointestinal: See HPI, Abdominal Pain; Denies Constipated, Denies Diarrhea, Denies Difficulty Swallowing, Denies Nausea, Denies Poor Appetite, Denies Rectal Bleeding, Denies Vomiting All Other Systems Reviewed Negative Unless Noted: Yes Past Uepxkjt-Vieuvu-Lhpxsk Hx Past Med/Social Hx: Reviewed Nursing Past Med/Soc Hx Patient Social History Alcohol Use: Occasionally Uses Number of Drinks Today: AA Alcohol Beverage of Choice: Beer Recreational Drug Use: No Smoking Status: Never a Smoker 2nd Hand Smoke Exposure: No Recent Foreign Travel: No Contact w/Someone Who Travel: No Recent Infectious Disease Expo: No Recent Hopitalizations: No Immunizations Up To Date Tetanus Booster (TDap): Less than 5yrs Date of Pneumonia Vaccine: Apr 14, 2011 Date of Influenza Vaccine: Dec 27, 2013 Seasonal Allergies Seasonal Allergies: No Past Medical History Surgeries: Yes (ROTATOR CUFF REPAIR RT SHOULDER/LT TORN LIGAMENT REPAIR, NECK, BACK ) Orthopedic Respiratory: Yes (SLEEP APNEA, USES C-PAP) Pneumonia, Chronic Bronchitis Currently Using CPAP: Yes Currently Using BIPAP: No Cardiac: Yes Hypertension Neurological: Yes (HEAD INJURY 2008 (BUILDING COLAPSE)) Headaches /Migraines, Seizure Disorder, Traumatic Brain Injury Reproductive Disorders: No Gastrointestinal: Yes Gastroesophageal Reflux Musculoskeletal: Yes (HERNIATED DISC) Arthritis, Fractures, Gout Endocrine: Yes Hypothyroidsim, Diabetes, Non-Insulin dep Cancer: No Psychosocial: Yes Anxiety Integumentary: No Blood Disorders: No Family Medical History No Pertinent Family Hx Physical Exam Vital Signs Vital Signs - First Documented 10/21/18 10/21/18 14:16 15:47 Temp 98.2 Pulse 74 Resp 20 B/P (MAP) 118/76 (90) Pulse Ox 97 O2 Delivery Room Air Capillary Refill : Less Than 3 Seconds Height/Weight/BMI Height: 5'11.00" Weight: 285lbs. 0oz. 129.315018gd; BMI Method:Actual General Appearance: WD/WN, no apparent distress Neck: non-tender, full range of motion, supple, normal inspection Respiratory: chest non-tender, lungs clear, normal breath sounds Cardiovascular: normal peripheral pulses, regular rate, rhythm Gastrointestinal: normal bowel sounds, soft, distended; No rebound; tenderness (left lower abdomen and groin, pain with ROM to left hip. ); No hernia, No mass; other (Neg cremasteric reflex. ) Genital/Rectal: normal genital exam (Lamar Tse, RN in room during hernia and genital exam. ) Extremities: normal range of motion, non-tender, normal inspection Back: normal inspection, no CVA tenderness Neurologic/Psychiatric: no motor/sensory deficits, alert, normal mood/affect, oriented x 3 Skin: normal color, warm/dry Progress/Results/Core Measures Results/Orders Lab Results Laboratory Tests Test 10/21/18 14:36 Range/Units Urine Color YELLOW Urine Clarity CLEAR Urine pH 7 5-9 Urine Specific [place] 1.010 L 1.016-1.022 Urine Protein NEGATIVE NEGATIVE Urine Glucose (UA) NEGATIVE NEGATIVE Urine Ketones NEGATIVE NEGATIVE Urine Nitrite NEGATIVE NEGATIVE Urine Bilirubin NEGATIVE NEGATIVE Urine Urobilinogen NORMAL NORMAL MG/DL Urine Leukocyte Esterase NEGATIVE NEGATIVE Urine RBC (Auto) NEGATIVE NEGATIVE Urine RBC NONE /HPF Urine WBC NONE /HPF Urine Squamous Epithelial Cells 2-5 /HPF Urine Crystals NONE /LPF Urine Bacteria NEGATIVE /HPF Urine Casts NONE /LPF Urine Mucus NEGATIVE /LPF Urine Culture Indicated NO My Orders Orders - ADELIA ANNE Cyclobenzaprine Tablet (Flexeril Tablet) (10/21/18 15:18) Tramadol Tablet (Ultram Tablet) (10/21/18 15:30) Medications Given in ED Current Medications Medications Dose Ordered Sig/Asaf Route Start Time Stop Time Status Last Admin Dose Admin Tramadol HCl 50 mg ONCE ONCE PO 10/21/18 15:30 10/21/18 15:31 DC 10/21/18 15:34 50 MG Vital Signs/I&O 10/21/18 10/21/18 14:16 15:47 Temp 98.2 Pulse 74 74 Resp 20 16 B/P (MAP) 118/76 (90) 118/76 (90) Pulse Ox 97 97 O2 Delivery Room Air Blood Pressure Mean: 90 Departure Impression Primary Impression: Strain of left inguinal muscle Qualified Codes: S39.013A - Strain of muscle, fascia and tendon of pelvis, initial encounter Disposition: 01 HOME, SELF-CARE Condition: Improved Departure-Patient Inst. Decision time for Depature: 15:40 Referrals: SHO BLOOD MD (PCP/Family) Primary Care Physician Patient Instructions: Groin Strain (DC) Add. Discharge Instructions: Activity as tolerated. Warm moist compressions to left groin every 2 hours. Alternate between Tylenol 650 mg and ibuprofen 600 mg every 4 hours for pain. Follow-up with your primary care provider if symptoms are not improving or worsen. Return to emergency department for new, urgent health care needs. All discharge instructions reviewed with patient and/or family. Voiced understanding. ADELIA ANNE Oct 21, 2018 15:25
[2018-10-21 15:47] VITALS: BP 118/76
== END 2018-10-21 15:48 | disposition home or self-care (01) ==
LOC: EDUNIT# 14:06 → ER 14:08
DX: S39.013A Strain of muscle, fascia and tendon of pelvis, initial encounter (principal); G47.30 Sleep apnea, unspecified; J42 Unspecified chronic bronchitis; I10 Essential (primary) hypertension; G43.909 Migraine, unspecified, not intractable, without status migrainosus; G40.909 Epilepsy, unspecified, not intractable, without status epilepticus; K21.9 Gastro-esophageal reflux disease without esophagitis; E03.9 Hypothyroidism, unspecified; E11.9 Type 2 diabetes mellitus without complications; F41.9 Anxiety disorder, unspecified; Z87.820 Personal history of traumatic brain injury; Z87.01 Personal history of pneumonia (recurrent); X50.1XXA Overexertion from prolonged static or awkward postures, initial encounter; Y92.009 Unspecified place in unspecified non-institutional (private) residence as the place of occurrence of the external cause
CPT/HCPCS: 81000; 99283

== ENCOUNTER 2019-04-11 05:36 | Outpatient (CLI) | payer MEDICARE ==
[~2019-04-11] VITALS: Ht 180 cm; Wt 135.0 kg
[2019-04-12] MEDS ORDERED: LINA5TAB PO (11:26)
[2019-04-12] MEDS ORDERED: ATOR10TA66 PO (11:33)
[2019-04-12] MEDS ORDERED: TOPI50TA13 PO ×2 (11:33→11:37)
[2019-04-12] MEDS ORDERED: CHOL200059 PO (11:33)
[2019-04-12] MEDS ORDERED: LEVO137T2 PO (11:33)
[2019-04-12] MEDS ORDERED: MULT-1102 PO (11:37)
[2019-04-12] MEDS ORDERED: PRAZ1CAP2 PO (11:37)
[2019-04-12] MEDS ORDERED: PRAZ2CAP2 PO (11:37)
[2019-04-12] MEDS ORDERED: ARIP15TA9 PO (11:37)
== END 2019-04-13 12:03 ==
LOC: PREOP 05:36
PROVIDERS: ATTEND Surgery
DX: Z01.818 Encounter for other preprocedural examination (principal)

== ENCOUNTER 2020-06-06 21:48 | Observation (INO) | payer MEDICARE, OTHER ==
[~2020-06-06] VITALS: Ht 180 cm; Wt 140.0 kg
[~2020-06-06 21:48] MED LIST changes: +ARIP15TA9 PO; +ATOR10TA66 PO; +CHOL200059 PO; +ESCI-2 PO; -ESCI10TA55 PO; +ESCI20TA39 PO; -ESCI20TA45 PO; +LEVO137T2 PO; +LINA5TAB PO; +MULT-1102 PO; +PRAZ1CAP2 PO; +PRAZ2CAP2 PO; +TOPI50TA13 PO
[2020-06-06] MEDS ORDERED: NITROGLYCERIN 0.4 MG SL TABS BTL 25'S SL PRN (22:00)
[2020-06-06] MEDS ORDERED: ASPIRIN 81 MG CHEW (CHILDREN'S ASA) PO ONE (22:00)
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
[2020-06-06 22:08] LABS: BASOPHILS % (AUTO) 0 % (0-10); EOSINOPHILS # (AUTO) 0.2 10^3/uL (0.0-0.3); EOSINOPHILS % (AUTO) 2 % (0-10); HEMATOCRIT 48 % (40-54); HEMOGLOBIN 15.7 g/dL (13.3-17.7); LYMPHOCYTES # (AUTO) 2.6 10^3/uL (1.0-4.0); LYMPHOCYTES % (AUTO) 34 % (12-44); MEAN CORPUSCULAR HEMOGLOBIN 32 pg (25-34); MEAN CORPUSCULAR HGB CONC 33 g/dL (32-36); MEAN CORPUSCULAR VOLUME 96 fL (80-99); MEAN PLATELET VOLUME 11.5 fL (9.0-12.2); MONOCYTES # (AUTO) 0.6 10^3/uL (0.0-1.0); MONOCYTES % (AUTO) 8 % (0-12); NEUTROPHILS # (AUTO) 4.1 10^3/uL (1.8-7.8); NEUTROPHILS % (AUTO) 54 % (42-75); PLATELET COUNT 185 10^3/uL (130-400); WHITE BLOOD COUNT 7.6 10^3/uL (4.3-11.0)
[2020-06-06 22:25] LABS: BILIRUBIN,URINE NEGATIVE (NEGATIVE); CLARITY,URINE CLEAR; COLOR,URINE YELLOW; GLUCOSE, URINE (UA) NEGATIVE (NEGATIVE); KETONES,URINE NEGATIVE (NEGATIVE); LEUKOCYTE ESTERASE ,URINE NEGATIVE (NEGATIVE); NITRITE,URINE NEGATIVE (NEGATIVE); PROTEIN,URINE NEGATIVE (NEGATIVE)
[2020-06-06 22:35] LABS: BACTERIA,URINE TRACE /HPF
[2020-06-06 22:36] LABS: AMORPHOUS SEDIMENT,UR FEW AMOR PHOSPHATE /LPF; SQUAMOUS EPITHELIAL CELL,UR RARE /HPF
[2020-06-06 22:38] LABS: ALANINE AMINOTRANSFERASE 31 U/L (0-55); ALBUMIN 4.1 GM/DL (3.2-4.5); ALKALINE PHOSPHATASE 55 U/L (40-136); AMYLASE 74 U/L (25-125); BILIRUBIN,TOTAL 0.3 MG/DL (0.1-1.0); BUN/CREATININE RATIO 14; CALCIUM 8.8 MG/DL (8.5-10.1); CARBON DIOXIDE 22 MMOL/L (21-32); CHLORIDE 109 MMOL/L (98-107); CREATINE KINASE 382 U/L (30-200); CREATININE SERUM 0.87 MG/DL (0.60-1.30); GFR ESTIMATED > 60; GLUCOSE 132 MG/DL (70-105); LIPASE 40 U/L (8-78); MAGNESIUM 1.9 MG/DL (1.6-2.4); POTASSIUM 3.9 MMOL/L (3.6-5.0); SODIUM 141 MMOL/L (135-145); TOTAL PROTEIN 6.9 GM/DL (6.4-8.2)
[2020-06-06 22:45] LABS: CREATINE KINASE MB 3.8 NG/ML (<6.6)
[2020-06-06 22:46] LABS: PARTIAL THROMBOPLASTIN TIME < 20 SEC (24-35)
[2020-06-06 22:58] LABS: VALPROIC ACID 57.8 UG/ML (50.0-100.0)
[2020-06-06] MEDS: CATHETER FLUSH 10 ML SYR IV PRN (23:21)
[2020-06-06] MEDS ORDERED: HOLD METFORMIN - RECEIVED CONTRAST 20 ML VIAL IV SCH (23:30)
[2020-06-06] MEDS ORDERED: IOHEXOL 350 MG/ML 100 ML (OMNIPAQUE 350) VIAL IV ONE (23:30)
[2020-06-06] MEDS ORDERED: NS 100 ML (IVPB) BAG IV ONE (23:30)
[2020-06-07] VITALS (12 sets, daily range): BP systolic 86–126; BP diastolic 47–84
[2020-06-07] MEDS ORDERED: NITROGLYCERIN 0.4 MG SL TABS BTL 25'S SL PRN (00:45)
[2020-06-07] MEDS ORDERED: morphine INJ 4 MG/ML 1 ML (VIAL/SYRINGE) IV PRN (00:45)
[2020-06-07] MEDS ORDERED: ONDANSETRON 4 MG/2 ML (SDV) Z0FRAN IVP PRN (00:45)
[2020-06-07 03:21] LABS: BASOPHILS # (AUTO) 0.1 10^3/uL (0.0-0.1); BASOPHILS % (AUTO) 1 % (0-10); EOSINOPHILS # (AUTO) 0.2 10^3/uL (0.0-0.3); EOSINOPHILS % (AUTO) 2 % (0-10); HEMATOCRIT 46 % (40-54); LYMPHOCYTES # (AUTO) 2.8 10^3/uL (1.0-4.0); LYMPHOCYTES % (AUTO) 37 % (12-44); MEAN CORPUSCULAR HEMOGLOBIN 31 pg (25-34); MEAN CORPUSCULAR HGB CONC 32 g/dL (32-36); MEAN CORPUSCULAR VOLUME 96 fL (80-99); MEAN PLATELET VOLUME 11.4 fL (9.0-12.2); MONOCYTES # (AUTO) 0.7 10^3/uL (0.0-1.0); MONOCYTES % (AUTO) 9 % (0-12); NEUTROPHILS # (AUTO) 3.8 10^3/uL (1.8-7.8); NEUTROPHILS % (AUTO) 50 % (42-75); PLATELET COUNT 179 10^3/uL (130-400); WHITE BLOOD COUNT 7.7 10^3/uL (4.3-11.0)
[2020-06-07 03:26] LABS: ALBUMIN 3.8 GM/DL (3.2-4.5); CHLORIDE 110 MMOL/L (98-107); POTASSIUM 4.1 MMOL/L (3.6-5.0); SODIUM 140 MMOL/L (135-145)
[2020-06-07 03:27] LABS: CALCIUM 8.4 MG/DL (8.5-10.1)
[2020-06-07 03:28] LABS: TRIGLYCERIDES 197 MG/DL (<150); VLDL CHOLESTEROL 39 MG/DL (5-40)
[2020-06-07 03:29] LABS: GLUCOSE 123 MG/DL (70-105); TOTAL PROTEIN 6.4 GM/DL (6.4-8.2)
[2020-06-07 03:30] LABS: CARBON DIOXIDE 20 MMOL/L (21-32)
[2020-06-07 03:31] LABS: BILIRUBIN,TOTAL 0.2 MG/DL (0.1-1.0)
[2020-06-07 03:32] LABS: ALKALINE PHOSPHATASE 48 U/L (40-136); GFR ESTIMATED > 60
[2020-06-07 03:33] LABS: CHOLESTEROL 128 MG/DL (< 200)
[2020-06-07 03:34] LABS: BUN/CREATININE RATIO 15
[2020-06-07 03:35] LABS: HDL CHOLESTEROL 36 MG/DL (40-60)
[2020-06-07 03:36] LABS: ALANINE AMINOTRANSFERASE 28 U/L (0-55)
--- NOTE | 2020-06-07 06:46 | Diagnostic Imaging Report ---
PROCEDURE: CT angiography of the chest with contrast. TECHNIQUE: Multiple contiguous axial images were obtained through the chest after uneventful bolus administration of intravenous contrast. 3D reconstructed CTA MIP acquisitions were also performed. Auto Exposure Controls were utilized during the CT exam to meet ALARA standards for radiation dose reduction. INDICATION: Chest pain, shortness of breath. COMPARISON: None. FINDINGS: The heart is normal. Pulmonary arteries and aorta grossly intact. There is no pulmonary embolism. There is no lymphadenopathy. No pleural or pericardial effusion is identified. The lungs are clear. No suspicious nodule, mass or infiltrate is seen. There is no pneumothorax or effusion. Visualized upper abdominal solid organs are grossly unremarkable. Osseous structures are age-appropriate IMPRESSION: Negative CT angiogram chest. Agree with preliminary report. Dictated by: Dictated on workstation # [id number]
--- NOTE | 2020-06-07 06:47 | Diagnostic Imaging Report ---
Indication: Chest pain. Comparison: 12/01/2014 Findings: Single view of the chest demonstrates clear lungs bilaterally. The heart is normal. There is no pneumothorax. Osseous structures are age-appropriate. Impression: Negative chest Dictated by: Dictated on workstation # [id number]
[2020-06-07] MEDS ORDERED: REGADENOSON 0.4 MG/5 ML SYR (LEXISCAN) IV ONE (08:45)
[2020-06-07] MEDS ORDERED: ASPIRIN E.C. 81 MG (ECOTRIN) TAB PO SCH (09:00)
--- NOTE | 2020-06-07 09:32 | Short Stay Summary-Hospitalist ---
History of Present Illness HPI/Chief Complaint Pt is 44yoCM with a PMH of TBI, hypothyroidism, HLD who presented to the ER due to chest pain. He states it has been going on for about a week and half intermittently . He has never had similar symptoms. It started at rest. He had no nausea, vomiting, diaphoresis. He did have some radiation up to his jaw with it though. He states it has completely resolved today and he is hopeful to go home as he has a cattle show with his daughter tomorrow. Source: patient Date Seen 06/07/20 Time Seen by a Provider: 09:27 Attending Physician Oj De La Vega MD PCP Sree Ta MD Referring Physician Date of Admission Jun 06, 2020 at 23:50 Home Medications & Allergies Home Medications Reviewed patient Home Medication Reconciliation performed by pharmacy medication reconciliations solar panel technician and/or nursing. Patients Allergies have been reviewed. Allergies Allergies Coded Allergies No Known Drug Allergies (Unverified04/11/19) Past Hwhonhh-Hixyjx-Vviotp Hx Past Med/Social Hx: Reviewed and Corrections made Patient Social History Marrital Status: Alcohol Use: Occasionally Uses Alcohol Beverage of Choice: Beer Recreational Drug Use: No Drug of Choice: DENIES Smoking Status: Former Smoker Former Smoker, Quit: Apr 13, 1999 Type Used: Cigarettes 2nd Hand Smoke Exposure: No Recent Foreign Travel: No Contact w/other who traveled: No Recent Hopitalizations: No Recent Infectious Disease Expo: No Immunizations Up To Date Tetanus Booster (TDap): Less than 5yrs Date of Pneumonia Vaccine: Apr 14, 2011 Date of Influenza Vaccine: Dec 09, 2019 Seasonal Allergies Seasonal Allergies: No Past Medical History Surgeries: Orthopedic Currently Using CPAP: Yes Currently Using BIPAP: No Cardiac: High Cholesterol, Hypertension Neurological: Headaches /Migraines, Seizure Disorder, Traumatic Brain Injury Reproductive: No Sexually Transmitted Disease: No HIV/AIDS: No Gastrointestinal: Gastroesophageal Reflux, Polyps Musculoskeletal: Arthritis, Fractures, Gout Endocrine: Hypothyroidsim, Diabetes, Non-Insulin dep Loss of Vision: Denies Hearing Impairment: Denies Psychosocial: Anxiety History of Blood Disorders: No Adverse Reaction to Blood García: No (N/A) Family History Reviewed Nursing Family Hx No Pertinent Family Hx PAST SURGICAL HISTORY: -SHOULDER SURGERY X 2 -CERVICAL SPINE SURGERY WITH HARDWARE -BACK SURGERY X 3 -SPINAL NERVE STIMULATOR -BICEPS SURGERY -TESTICULAR SURGERY -COLONOSCOPIES/POLYPECTOMY Review of Systems Constitutional: No chills, No diaphoresis, No fever, No malaise EENTM: no symptoms reported; No hoarseness, No nose congestion Respiratory: No cough, No dyspnea on exertion, No short of breath Cardiovascular: see HPI, chest pain; No edema, No Hx of Intervention, No palpitations Gastrointestinal: No abdominal pain, No constipation, No diarrhea, No nausea, No vomiting Genitourinary: no symptoms reported Musculoskeletal: No joint pain, No muscle pain, No muscle cramps Skin: no symptoms reported Psychiatric/Neurological: No Symptoms Reported Physical Exam Physical Exam Vital Signs Vital Signs - First Documented Capillary Refill : Less Than 3 Seconds Height, Weight, BMI Height: 5'11.00" Weight: 285lbs. 0oz. 129.427050qr; 43.20 BMI Method:Actual General Appearance: No Apparent Distress, WD/WN; No Anxious; Obese HEENT: PERRL/EOMI, Moist Mucous Membranes; No Scleral Icterus (L), No Scleral Icterus (R) Neck: Normal Inspection, Supple; No JVD Respiratory: Chest Non Tender, Lungs Clear, No Accessory Muscle Use, No Respiratory Distress Cardiovascular: Regular Rate, Rhythm, No Murmur, Normal Peripheral Pulses Gastrointestinal: Normal Bowel Sounds, Non Tender, Soft; No Distended, No Guarding Extremity: Normal Inspection, Non Tender, No Calf Tenderness, No Pedal Edema Neurologic/Psychiatric: Alert, Oriented x3, Normal Mood/Affect; No Aphasia, No Facial Droop; Other (tremor of right hand noted) Skin: Normal Color, Warm/Dry Results Results/Procedures Labs Patient resulted labs reviewed. Imaging: Reviewed Imaging Report [facility] [place], [place] NAME: MIRIAN ANTONY [facility] REC#: [id number] PT STATUS: ADM Mychal : 1975 PHYSICIAN: LENCHO CEBALLOS DO ADMIT DATE: 06/06/20/[facility] Draft Date of Exam:06/06/20 CHEST 1 VIEW, AP/PA ONLY Indication: Chest pain. Comparison: 12/01/2014 Findings: Single view of the chest demonstrates clear lungs bilaterally. The heart is normal. There is no pneumothorax. Osseous structures are age-appropriate. Impression: Negative chest Dictated on workstation # [id number] Dict: 06/07/20622 Trans: 06/07/20 0647 CVB [id number] Interpreted by: CECILIO VILLEDA Electronically signed by: [facility] [address] [place], [place] NAME: MIRIAN ANTONY [facility] REC#: [id number] PT STATUS: ADM Mychal : 1975 PHYSICIAN: LENCHO CEBALLOS DO ADMIT DATE: 06/06/20/[facility] Draft Date of Exam:06/06/20 CT ANGIO CHEST W PROCEDURE: CT angiography of the chest with contrast. TECHNIQUE: Multiple contiguous axial images were obtained through the chest after uneventful bolus administration of intravenous contrast. 3D reconstructed CTA MIP acquisitions were also performed. Auto Exposure Controls were utilized during the CT exam to meet ALARA standards for radiation dose reduction. INDICATION: Chest pain, shortness of breath. COMPARISON: None. FINDINGS: The heart is normal. Pulmonary arteries and aorta grossly intact. There is no pulmonary embolism. There is no lymphadenopathy. No pleural or pericardial effusion is identified. The lungs are clear. No suspicious nodule, mass or infiltrate is seen. There is no pneumothorax or effusion. Visualized upper abdominal solid organs are grossly unremarkable. Osseous structures are age-appropriate IMPRESSION: Negative CT angiogram chest. Agree with preliminary report. Dictated on workstation # [id number] Dict: 06/07/[id number] Trans: 06/07/2046 CVB [id number] Interpreted by: CECILIO VILLEDA Electronically signed by: Short Stay Diagnosis Discharge Diagnosis-Short Stay Admission Diagnosis Chest pain Final Discharge Diagnosis Chest pain Conclusion Plan Chest pain Seems atypical in nature but does have risk factor (history of smoking, HLD, obesity) troponin negative x2 Cardiology consulted, appreciate recs ASA given in ER Rapid COVID negative Stress test done and negative, will DC home HLD Continue statin TBI Tremor Continue home meds Hypothyroidism Continue synthroid Obesity no acute needs Clinical Quality Measures AMI/AHF: ASA po Prior to arrival: No JODI JEFFRIES MD Jun 07, 2020 09:32
--- NOTE | 2020-06-07 10:19 | Consultation-Cardiology ---
HPI-Cardiology Cardiology Consultation Date of Consultation 06/07/20 Date of Admission Time Seen by Provider: 09:27 Indication: chest pain HPI 44 years old gentleman with history of traumatic brain injury, hyperlipidemia and hypothyroidism, has been having recurrent chest pain for 4-5 days, became worse yesterday, came into the emergency room reporting retrosternal dull achiness. Started at rest. No shortness of breath. No palpitation. No syncope or near syncopal episode. Had some left sided neck and jaw pain for the past few days. Currently chest pain-free. EKG and cardiac enzymes were negative. Home Medications & Allergies Allergies: Coded Allergies: No Known Drug Allergies (Unverified , 04/11/19) Home Medication List Reviewed: Yes [id number] Hx Patient Social History Marital Status: Recreational Drug Use: No Drug of Choice: DENIES Smoking Status: Former Smoker Type Used: Cigarettes 2nd Hand Smoke Exposure: No Recent Hopitalizations: No Immunizations Up To Date Tetanus Booster (TDap): Less than 5yrs Date of Pneumonia Vaccine: Apr 14, 2011 Date of Influenza Vaccine: Dec 09, 2019 Past Medical History Described below Family Medical History Significant Family History: No Pertinent Family Hx Family Medical Hx Noncontributory Review of Systems-General Review of Systems Constitutional: see HPI; No chills, No diaphoresis, No fever, No malaise EENTM: see HPI, no symptoms reported; No hoarseness, No nose congestion Respiratory: see HPI; No cough, No dyspnea on exertion, No hemoptysis, No orthopnea, No phlegm, No short of breath, No stridor, No wheezing, No other Cardiovascular: see HPI, chest pain; No edema, No Hx of Intervention, No palpitations, No syncope, No vascular heart diseas, No other Gastrointestinal: no symptoms reported, see HPI; No abdominal pain, No constipation, No diarrhea, No nausea, No vomiting Genitourinary: no symptoms reported, see HPI Musculoskeletal: see HPI; No joint pain, No muscle pain, No muscle cramps Skin: no symptoms reported, see HPI Psychiatric/Neurological: No Symptoms Reported, See HPI Reviewed Test Results Reviewed Test Results Lab Laboratory Tests Test 06/06/20 22:00 06/06/20 22:08 06/06/20 22:20 06/07/20 03:08 Range/Units White Blood Count 7.6 7.7 4.3-11.0 10^3/uL Red Blood Count 4.99 4.81 4.30-5.52 10^6/uL Hemoglobin 15.7 15.0 13.3-17.7 g/dL Hematocrit 48 46 40-54 % Mean Corpuscular Volume 96 96 80-99 fL Mean Corpuscular Hemoglobin 32 31 25-34 pg Mean Corpuscular Hemoglobin Concent 33 32 32-36 g/dL Red Cell Distribution Width 13.2 13.2 10.0-14.5 % Platelet Count 185 179 130-400 10^3/uL Mean Platelet Volume 11.5 11.4 9.0-12.2 fL Immature Granulocyte % (Auto) 1 1 % Neutrophils (%) (Auto) 54 50 42-75 % Lymphocytes (%) (Auto) 34 37 12-44 % Monocytes (%) (Auto) 8 9 0-12 % Eosinophils (%) (Auto) 2 2 0-10 % Basophils (%) (Auto) 0 1 0-10 % Neutrophils # (Auto) 4.1 3.8 1.8-7.8 10^3/uL Lymphocytes # (Auto) 2.6 2.8 1.0-4.0 10^3/uL Monocytes # (Auto) 0.6 0.7 0.0-1.0 10^3/uL Eosinophils # (Auto) 0.2 0.2 0.0-0.3 10^3/uL Basophils # (Auto) 0.0 0.1 0.0-0.1 10^3/uL Immature Granulocyte # (Auto) 0.1 0.1 0.0-0.1 10^3/uL Erythrocyte Sedimentation Rate 1 0-15 MM/HR Prothrombin Time 13.0 12.2-14.7 SEC INR Comment 1.0 0.8-1.4 Activated Partial Thromboplast Time < 20 L 24-35 SEC D-Dimer < 0.27 0.00-0.49 UG/ML Sodium Level 141 140 135-145 MMOL/L Potassium Level 3.9 4.1 3.6-5.0 MMOL/L Chloride Level 109 H 110 H 98-107 MMOL/L Carbon Dioxide Level 22 20 L 21-32 MMOL/L Anion Gap 10 10 5-14 MMOL/L Blood Urea Nitrogen 12 12 7-18 MG/DL Creatinine 0.87 0.80 0.60-1.30 MG/DL Estimat Glomerular Filtration Rate > 60 > 60 BUN/Creatinine Ratio 14 15 Glucose Level 132 H 123 H 70-105 MG/DL Calcium Level 8.8 8.4 L 8.5-10.1 MG/DL Corrected Calcium 8.7 8.6 8.5-10.1 MG/DL Magnesium Level 1.9 1.6-2.4 MG/DL Total Bilirubin 0.3 0.2 0.1-1.0 MG/DL Aspartate Amino Transf (AST/SGOT) 22 20 5-34 U/L Alanine Aminotransferase (ALT/SGPT) 31 28 0-55 U/L Alkaline Phosphatase 55 48 40-136 U/L Lactate Dehydrogenase 202 125-220 U/L Total Creatine Kinase 382 H 30-200 U/L Creatine Kinase MB 3.8 <6.6 NG/ML Myoglobin 50.7 10.0-92.0 NG/ML Troponin I < 0.028 < 0.028 <0.028 NG/ML C-Reactive Protein High Sensitivity 0.20 0.00-0.50 MG/DL B-Type Natriuretic Peptide 12.0 <100.0 PG/ML Total Protein 6.9 6.4 6.4-8.2 GM/DL Albumin 4.1 3.8 3.2-4.5 GM/DL Amylase Level 74 25-125 U/L Lipase 40 8-78 U/L Procalcitonin 0.01 <0.10 NG/ML Valproic Acid (Depakene) Level 57.8 50.0-100.0 UG/ML Coronavirus 2019 (JEFFREY) Negative Negative Urine Color YELLOW Urine Clarity CLEAR Urine pH 7.0 5-9 Urine Specific [place] 1.020 1.016-1.022 Urine Protein NEGATIVE NEGATIVE Urine Glucose (UA) NEGATIVE NEGATIVE Urine Ketones NEGATIVE NEGATIVE Urine Nitrite NEGATIVE NEGATIVE Urine Bilirubin NEGATIVE NEGATIVE Urine Urobilinogen 0.2 < = 1.0 MG/DL Urine Leukocyte Esterase NEGATIVE NEGATIVE Urine RBC (Auto) NEGATIVE NEGATIVE Urine RBC NONE /HPF Urine WBC NONE /HPF Urine Squamous Epithelial Cells RARE /HPF Urine Crystals PRESENT H /LPF Urine Amorphous Sediment FEW MAUREEN PHOSPHATE H /LPF Urine Bacteria TRACE /HPF Urine Casts NONE /LPF Urine Mucus SMALL H /LPF Urine Culture Indicated NO Triglycerides Level 197 H <150 MG/DL Cholesterol Level 128 < 200 MG/DL LDL Cholesterol Direct 77 1-129 MG/DL VLDL Cholesterol 39 5-40 MG/DL HDL Cholesterol 36 L 40-60 MG/DL Physical Exam Physical Exam Vital Signs Vital Signs - First Documented Capillary Refill : Less Than 3 Seconds Height, Weight, BMI Height: 5'11.00" Weight: 285lbs. 0oz. 129.118070la; 43.20 BMI Method:Actual General Appearance: No Apparent Distress, WD/WN; No Anxious; Obese Eyes: Bilateral Eye Normal Inspection, Bilateral Eye PERRL, Bilateral Eye EOMI HEENT: PERRL/EOMI, Moist Mucous Membranes; No Scleral Icterus (L), No Scleral Icterus (R) Neck: Normal Inspection, Supple; No JVD Respiratory: Chest Non Tender, Lungs Clear, No Accessory Muscle Use, No Respiratory Distress Cardiovascular: Regular Rate, Rhythm, No Murmur, Normal Peripheral Pulses Gastrointestinal: Normal Bowel Sounds, Non Tender, Soft; No Distended, No Guarding Back: Normal Inspection, No CVA Tenderness, No Vertebral Tenderness Extremity: Normal Inspection, Non Tender, No Calf Tenderness, No Pedal Edema Neurologic/Psychiatric: Alert, Oriented x3, Normal Mood/Affect; No Aphasia, No Facial Droop; Other (tremor of right hand noted) Skin: Normal Color, Warm/Dry Lymphatic: No Adenopathy A/P-Cardiology Admission Diagnosis Chest pain Hyperlipidemia Traumatic brain injury Seizure disorder Assessment/Plan Chest pain nonspecific etiology, atypical in presentation, cardiac enzymes and EKG were normal. I am trying to evaluate stress test and possible discharge after stress test. Continue to monitor for now Hyperlipidemia, monitor lipids History of traumatic brain injury in 2008, seizure disorder, followed and managed by primary care physician Hypothyroidism, followed and managed by primary care physician Clinical Quality Measures AMI/AHF: ASA po Prior to arrival: TONY Santana MD Jun 07, 2020 10:19
[2020-06-07] MEDS: CATHETER FLUSH 10 ML SYR IV PRN (10:28)
--- NOTE | 2020-06-07 14:58 | Cardiology Stress Test Report ---
Stress Test Report Date of Procedure/Referring: Date of Procedure: Jun 07, 2020 PCP Oj De La Vega MD Admitting Physician Sree Ta MD Indications: Chest pain Baseline Heart Rate: 63 Baseline Blood Pressure: Blood Pressure Systolic: 124 Blood Pressure Diastolic: 84 Vital Signs Date Time Temp Pulse Resp B/P (MAP) Pulse Ox O2 Delivery O2 Flow Rate FiO2 06/06/20 21:55 36.0 79 18 150/92 (111) 99 Room Air Baseline Vital Signs Vital Signs Date Time Temp Pulse Resp B/P (MAP) Pulse Ox O2 Delivery O2 Flow Rate FiO2 06/06/20 21:55 36.0 79 18 150/92 (111) 99 Room Air Baseline EKG: Baseline EKG: NSR Summary: After explaining the procedure and details to the patient, he signed the consent and was brought to the stress nuclear laboratory. Patient exercised on standard Luiz protocol, EKG, heart rate and blood pressure were monitored continuously, resting and stress doses of radio tracer were injected, imaging was acquired and reviewed in the short axis, horizontal long axis and vertical long axis views Patient was able to exercise for a total of 8 minutes on Luiz protocol, METs 9.7 Maximum heart rate 162 Maximum blood pressure 261/99 Stress EKG, Minimal nondiagnostic changes Recovery EKG, Return to baseline TID: 1.15 SSS: 0 SDS: 0 EF: 59 Conclusion: 1. Patient had good exercise tolerance for a total of 8 minutes on standard Bru ce protocol, 9.7 METs achieving 93 percent of maximum expected heart rate 2. Severe hypertensive response to exercise with peak blood pressure 261/99 return to baseline during recovery 3. Minimal nondiagnostic EKG changes with exercise returned to baseline during recovery 4. Extracardiac attenuation with mild decrease uptake at the mid anterior wall, there is no significant ischemia or infarction on SPECT images 5. Normal left ventricular size, EF 59 percent TONY HOLT MD Jun 07, 2020 14:58
--- NOTE | 2020-06-07 15:39 | Discharge Inst-Simple/Standard ---
Discharge Inst-Standard Patient Instructions/Follow Up Plan of Care/Instructions/FU: Please continue to take your medications as written. Please follow up with your primary care doctor to follow up this hosptial stay. Activity as Tolerated: Yes Discharge Diet: Cardiac Diet Return to The Hospital For: Chest pain, shortness of breath, fever, confusion, if you feel you are getting worse. JODI JEFFRIES MD Jun 07, 2020 15:39
== END 2020-06-07 16:20 | disposition home or self-care (01) ==
LOC: EDUNIT# 21:48 → ER 21:51 → CSD 23:50
PROVIDERS: ADMIT Internal Medicine; ATTEND Internal Medicine
DX: R07.89 Other chest pain (principal); I10 Essential (primary) hypertension; E11.9 Type 2 diabetes mellitus without complications; G43.909 Migraine, unspecified, not intractable, without status migrainosus; G40.909 Epilepsy, unspecified, not intractable, without status epilepticus; K21.9 Gastro-esophageal reflux disease without esophagitis; J42 Unspecified chronic bronchitis; M19.90 Unspecified osteoarthritis, unspecified site; G47.30 Sleep apnea, unspecified; M10.9 Gout, unspecified; E78.5 Hyperlipidemia, unspecified; E66.9 Obesity, unspecified; F32.9 Major depressive disorder, single episode, unspecified; Z68.41 Body mass index [BMI] 40.0-44.9, adult; Z79.890 Hormone replacement therapy; Z79.899 Other long term (current) drug therapy; Z87.891 Personal history of nicotine dependence; Z87.820 Personal history of traumatic brain injury; Z20.822 Contact with and (suspected) exposure to COVID-19
CPT/HCPCS: 71045; 71275; 78452; 80053 ×2; 80061; 80164; 81000; 82150; 82550; 82553; 83615; 83690; 83735; 83874; 83880; 84145; 84484 ×2; 85025 ×2; 85379; 85610; 85652; 85730; 86141; 87804; 93005; 93017; 93041; 93306; 99284; A9502; G0378; U0002; 36415; 87635

== ENCOUNTER 2020-07-10 08:00 | Day surgery (SDC) | payer MEDICARE, OTHER ==
[~2020-07-10] VITALS: Ht 180 cm; Wt 141.0 kg
[2020-07-10] VITALS (10 sets, daily range): BP systolic 99–125; BP diastolic 54–75
[2020-07-10 07:34] LABS: BILIRUBIN,URINE NEGATIVE (NEGATIVE); CLARITY,URINE CLEAR; COLOR,URINE YELLOW; GLUCOSE, URINE (UA) NEGATIVE (NEGATIVE); HEMOGLOBIN 15.3 g/dL (13.3-17.7); KETONES,URINE NEGATIVE (NEGATIVE); LEUKOCYTE ESTERASE ,URINE NEGATIVE (NEGATIVE); MEAN PLATELET VOLUME 11.3 fL (9.0-12.2); NITRITE,URINE NEGATIVE (NEGATIVE); PROTEIN,URINE NEGATIVE (NEGATIVE); WHITE BLOOD COUNT 7.4 10^3/uL (4.3-11.0)
[2020-07-10 07:45] LABS: BACTERIA,URINE NEGATIVE /HPF; SQUAMOUS EPITHELIAL CELL,UR 0-2 /HPF
--- NOTE | 2020-07-10 07:49 | Diagnostic Imaging Report ---
Indication: Chest pain. Abnormal stress test Single view of the chest shows normal heart size and vascularity. The lungs are clear. There is no effusion or pneumothorax. There is no acute bony abnormality. IMPRESSION: No acute abnormality is seen with no change from 06/06/2020. Dictated by: Dictated on workstation # [id number]
[2020-07-10 07:55] LABS: ALANINE AMINOTRANSFERASE 36 U/L (0-55); ALKALINE PHOSPHATASE 53 U/L (40-136); BILIRUBIN,TOTAL 0.3 MG/DL (0.1-1.0); BUN/CREATININE RATIO 14; CALCIUM 8.5 MG/DL (8.5-10.1); CARBON DIOXIDE 23 MMOL/L (21-32); CHLORIDE 108 MMOL/L (98-107); CHOLESTEROL 144 MG/DL (< 200); CREATININE SERUM 0.85 MG/DL (0.60-1.30); GFR ESTIMATED > 60; GLUCOSE 105 MG/DL (70-105); HDL CHOLESTEROL 44 MG/DL (40-60); POTASSIUM 4.1 MMOL/L (3.6-5.0); SODIUM 141 MMOL/L (135-145); TOTAL PROTEIN 6.8 GM/DL (6.4-8.2); TRIGLYCERIDES 89 MG/DL (<150); VLDL CHOLESTEROL 18 MG/DL (5-40)
[~2020-07-10 08:00] MED LIST changes: +HEParin (CATH LAB) 2,000 ML IV ONE; +HEParin 1000 UNIT/ML (10ML VIAL) FOR BOLUS ONE; +LIDOCAINE 1% INJ 20 ML 20 ML VIAL ONE; +MIDAZOLAM 5 MG/5 ML (VERSED) VIAL ONE; +NITRO DRIP 25000 MCG/D5W 250 ML IV ONE; +NS IV 1000 ML 1,000 ML IV SCH; +NS IV 1000 ML 1,000 ML ONE; +VERAPAMIL 5 MG/2 ML (CALAN) VIAL IV ONE; +fentaNYL INJ 100 MCG/2 ML AMP ONE
[2020-07-10 08:17] LABS: PROTHROMBIN TIME PATIENT 13.1 SEC (12.2-14.7)
--- NOTE | 2020-07-10 08:38 | Cardiac Procedure Note-CS/ASA ---
Pre-Procedure Note Pre-Op Procedure Note H&P Reviewed The H&P was reviewed, patient examined and no changes noted. Date H&P Reviewed: Jul 10, 2020 Time H&P Reviewed: 08:38 Conscious Sedation Pre-Proced Time 08:38 ASA Score 3 For ASA 3 and 4: Consider anesthesia and medical clearance. Also, for patients with a history of failed moderate sedation consider anesthesia. Airway Lungs Heart ASA score ASA 1: a normal healthy patient ASA 2: a patient with a mild systemic disease (mid diabetes, controlled hypertension, obesity x ASA 3: a patient with a severe systemic disease that limits activity (angina, COPD, prior Myocardial infarction) ASA 4: a patient with an incapacitating disease that is a constant threat to life (CHF, renal failure) ASA 5: a moribund patient not expected to survive 24 hrs. (ruptured aneurysm) ASA 6: a declared brain- patient whose organs are being harvested. For emergent operations, add the letter E after the classification Mallampati Classification Grade 3 Sedation Plan Analgesia, Amnesia, Plan communicated to team members, Discussed options with patient/fam, Discussed risks with patient/fam The patient is an appropriate candidate to undergo the planned procedure, sedation, and anesthesia. The patient immediately re-assessed prior to indication. TONY HOLT MD Jul 10, 2020 08:38
--- NOTE | 2020-07-10 08:40 | Discharge Inst-Post CATH ---
Discharge Inst-CATH/EP Problems Reviewed?: Yes Post Cardiac Cath/EP D/C Inst Follow Up/Plan Appointment with Dr. Mullins's office in 4 weeks <b>CARDIAC CATH/EP PROCEDURE DISCHARGE INSTRUCTIONS</b> ACTIVITY * Go Home directly and rest. * Limit activity of the leg (or wrist if it was used) for 7 days including aerobics, swimming, jogging, bicycling, etc. * Restrict stair-climbing for 7 days if possible, if not, climb up with your non-cath leg, then bring together on the same step. * Avoid lifting, pushing, pulling or excessive movement of the affected extremity for 7 days. * Customary sexual activity may be resumed after 2 days-use caution not to use a position that strains or causes pain to the affected extremity. * No driving for 24 hours. * NO SMOKING. * Avoid straining for bowel movements for 7 days. * Gentle walking on level ground is allowed. * Returning to work will depend on the type of procedure and the results. Your doctor will discuss this with you. CALL YOUR DOCTOR FOR ANY OF THE FOLLOWING: *If bleeding from the puncture site occurs- Apply gentle pressure to site with clean cloth and call your doctor or EMS. * If a knot or lump forms under the skin, increases in size, or causes pain. * If bruising appears to be worsening or moving further down your leg instead of disappearing. * Temperature above 101 F. CARE OF YOUR GROIN INCISION; * Bruising or purple discoloration of the skin near the puncture site is common. * You may shower only, no bathtub bathing for 5 days. Be careful to avoid slipping as your leg may feel stiff. * If a closure device was used on your femoral artery, please see the attached guide regarding care of the device and your leg. * Leave dressing on FOR 24 hours. CARE OF YOUR WRIST INCISION; * Bruising or purple discoloration of the skin near the puncture site is common. * You may shower. * DO NOT submerge wrist. * Leave dressing on FOR 24 hours. TONY MULLINS MD Jul 10, 2020 08:40
--- NOTE | 2020-07-10 08:44 | Cardiac Cath Report ---
Cardiac Cath Report Physician (s)/Warehouse Team Member (s) Physician TONY HOLT MD Pre-Procedure Diagnosis Pre-Procedure Diagnosis: Chest pain, coronary artery disease Post-Procedure Note Procedure Start Date: Jul 10, 2020 Name of Procedure: Left heart catheterization Aortic arch angiogram Findings/Procedure Note PROCEDURE NOTE: 44 years old gentleman with recurrent chest pain, had borderline stress test, continue to have chest pain scheduled for cardiac catheterization possible PTCA. After explaining the procedure to the patient, all pros and cons were explained, all questions were answered. The patient signed the consent and then he was placed on the cardiac catheterization laboratory. Groin was prepped SL fashion local anesthesia was used. Sheath placed in the right radial artery, [place] catheter was advanced over baby wire due to difficulty advancing the wire to the left ventricular cavity pressure was measured then intubated the right and left coronary system and angiogram was done at the end of the procedure I pulled the catheter to the aortic arch and aortic arch angiogram was done At the end of the procedure the sheath was removed. Vascular band was used FINDINGS: Hemodynamics LV 59/10 end-diastolic pressure of 10 Aorta 63/45 mean of 52 ANATOMY: Left Main has no obstructive disease Left Anterior Descending has mild disease nonobstructive disease Left Circumflex has no obstructive disease Right Coronory Artery is dominant artery with small vessel disease nonobstructive disease LV Gram was not done, pressure was measured Aorta evaluation done with aortic arch angiogram showing normal aortic arch, no dissection or aneurysm, tortuous innominate and right carotid artery, normal origin of the left carotid and left subclavian arteries CONCLUSION: 1. Mild coronary artery disease no significant obstructive disease, dominant right coronary system 2. Normal left ventricular end-diastolic pressure 3. Normal aortic arch with tortuous innominate artery and right carotid artery, normal origin of the left carotid and left subclavian arteries DISCUSSION AND RECOMMENDATION: Medical therapy is recommended no intervention is warranted Anesthesia Type: Conscious Sedation Estimated blood loss (mL): 10 ml Contrast Amount: 43 ml Total Radiation Dose: 392 mGy Post-Procedure Diagnosis Post-operative diagnosis: Chest pain Coronary artery disease Hypertension Hypothyroidism TONY HOLT MD Jul 10, 2020 08:44
[2020-07-10] MEDS ORDERED: NS IV 1000 ML 1,000 ML IV SCH (08:45)
== END 2020-07-10 12:35 | disposition home or self-care (01) ==
LOC: CATH 08:00 → SDC 08:57 → CATH 12:35
PROVIDERS: ATTEND Internal Medicine Cardiovascular Disease
DX: I25.10 Atherosclerotic heart disease of native coronary artery without angina pectoris (principal); I10 Essential (primary) hypertension; E03.9 Hypothyroidism, unspecified; E78.2 Mixed hyperlipidemia; G43.909 Migraine, unspecified, not intractable, without status migrainosus; E66.9 Obesity, unspecified; F17.220 Nicotine dependence, chewing tobacco, uncomplicated; Z79.899 Other long term (current) drug therapy; Z79.890 Hormone replacement therapy; Z68.41 Body mass index [BMI] 40.0-44.9, adult
CPT/HCPCS: 36221; 71045; 80053; 80061; 81000; 85027; 85610; 85730; 87081; 93458; C1769; C1894; 36415

== ENCOUNTER 2021-04-22 18:27 | Emergency (ER) | payer MEDICARE, OTHER ==
[~2021-04-22] VITALS: Ht 180 cm; Wt 142.0 kg
[~2021-04-22 18:27] MED LIST changes: +ARIP15TA20 PO; -ARIP15TA9 PO; -HEParin (CATH LAB) 2,000 ML IV ONE; -HEParin 1000 UNIT/ML (10ML VIAL) FOR BOLUS ONE; -LIDOCAINE 1% INJ 20 ML 20 ML VIAL ONE; -MIDAZOLAM 5 MG/5 ML (VERSED) VIAL ONE; -NITRO DRIP 25000 MCG/D5W 250 ML IV ONE; -NS IV 1000 ML 1,000 ML IV SCH; -NS IV 1000 ML 1,000 ML ONE; +OLAN7.5T18 PO; -OLAN7.5T9 PO; -SULF1TAB35 PO; +SULF1TAB38 PO; -VERAPAMIL 5 MG/2 ML (CALAN) VIAL IV ONE; -fentaNYL INJ 100 MCG/2 ML AMP ONE
[2021-04-22 18:30] VITALS: BP 153/86
[2021-04-22] MEDS ORDERED: ASPIRIN 81 MG CHEW (CHILDREN'S ASA) PO ONE (19:00)
[2021-04-22] MEDS ORDERED: NS IV 1000 ML 1,000 ML IV SCH (19:00)
[2021-04-22] MEDS ORDERED: cefTRIAXone 1 GM PRE-MIX 50 ML IV ONE (19:00)
[2021-04-22] MEDS ORDERED: AZITHROMYCIN INJECTION 500 MG in NS (IVPB) 250 ML IV ONE (19:00)
[2021-04-22] MEDS ORDERED: LACTATED RINGERS 1,000 ML IV ONE (19:00)
[2021-04-22 19:06] LABS: BASOPHILS # (AUTO) 0.1 10^3/uL (0.0-0.1); BASOPHILS % (AUTO) 1 % (0-10); EOSINOPHILS # (AUTO) 0.1 10^3/uL (0.0-0.3); EOSINOPHILS % (AUTO) 1 % (0-10); HEMATOCRIT 48 % (40-54); HEMOGLOBIN 15.3 g/dL (13.3-17.7); LYMPHOCYTES # (AUTO) 1.9 10^3/uL (1.0-4.0); LYMPHOCYTES % (AUTO) 17 % (12-44); MEAN CORPUSCULAR HEMOGLOBIN 31 pg (25-34); MEAN CORPUSCULAR HGB CONC 32 g/dL (32-36); MEAN CORPUSCULAR VOLUME 96 fL (80-99); MEAN PLATELET VOLUME 11.3 fL (9.0-12.2); MONOCYTES # (AUTO) 0.7 10^3/uL (0.0-1.0); MONOCYTES % (AUTO) 6 % (0-12); NEUTROPHILS # (AUTO) 8.2 10^3/uL (1.8-7.8); NEUTROPHILS % (AUTO) 75 % (42-75); PLATELET COUNT 166 10^3/uL (130-400)
--- NOTE | 2021-04-22 19:08 | ED Respiratory ---
General Chief Complaint: Respiratory Problems Stated Complaint: COUGH/SOA Nursing Triage Note: PT CO OF SOA, STATES HAD COVID 1/, STATES FELT BETTER WENT ON TRIP TO [place] LAST WEEKEND, PT HAS SOA AND CHEST PAIN, STATES LUNG PAIN 5/10. SOA STARTED THIS AM AND HAS GOTTEN WORSE DAY GOES ON Source: patient Exam Limitations: no limitations History of Present Illness Date Seen by Provider: Apr 22, 2021 Time Seen by Provider: 18:41 Initial Comments Patient to the ER by private conveyance from home with chief complaint that his right lower chest is been hurting him when he takes deep inspirations. Is been having some shortness of breath worsening over the past 8 hours. He just got back on a long road trip from [place]. 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 He denies a history of lung disease, does not smoke cigarettes and has no history of coronary disease. He does not take aspirin or blood thinners. He did recently get diagnosed on the with COVID-19. He got over those symptoms but started getting worse again today. No hemoptysis. No swelling in his legs or pain in his calves. No history of blood clots or family history of blood clotting disorders. Follows with Dr. Ta for primary care. States his pain in his chest about a 5 out of 10 when he takes a deep breath but not bad enough that he wants anything for it. Nursing states when he came to the room his heart rate was in the 100-110 range and he is breathing about 40 breaths/min even at rest. Patient has a history of prediabetes Allergies and Home Medications Allergies Coded Allergies: No Known Drug Allergies (Unverified , 04/11/19) Patient Home Medication List Home Medication List Reviewed: Yes Aripiprazole (Aripiprazole) 15 Mg Tablet, 15 MG PO DAILY, (Reported) Entered as Reported by: VITO MEDRANO on 04/12/19 1137 Atorvastatin Calcium (Atorvastatin Calcium) 10 Mg Tablet, 10 MG PO HS, (Reported) Entered as Reported by: VITO MEDRANO on 04/12/19 1133 Cholecalciferol (Vitamin D3) (Vitamin D-3) 2,000 Unit Tablet, 2,000 UNIT PO DAILY, (Reported) Entered as Reported by: VITO MEDRANO on 1/15/20 1133 Divalproex Sodium (Divalproex Sodium) 500 Mg Tablet.dr, 500 MG PO BID, (Reported) Entered as Reported by: LV GORDILLO on 03/23/161942 Escitalopram Oxalate (Escitalopram Oxalate) 20 Mg Tablet, 20 MG PO HS, (Reported) Entered as Reported by: LV GORDILLO on 03/23/161942 Levothyroxine Sodium (Levothyroxine Sodium) 137 Mcg Tablet, 137 MCG PO DAILY, (Reported) Entered as Reported by: VITO MEDRANO on 04/12/191132 Multivit-Min/Folic/Vit K/Lycop (Men's Multivitamin Tablet) 1 Each Tablet, 1 EACH PO DAILY, (Reported) Entered as Reported by: VITO MEDRANO on 04/12/191136 Prazosin HCl (Prazosin HCl) 2 Mg Capsule, 2 MG PO DAILY, (Reported) Entered as Reported by: VITO MEDRANO on 04/12/191136 Prazosin HCl (Prazosin HCl) 1 Mg Capsule, 2 MG PO HS, (Reported) Entered as Reported by: VITO MEDRANO on 04/12/191136 Propranolol HCl (Propranolol HCl ER) 60 Mg Cap.sa.24h, 60 MG PO DAILY, (Reported) Entered as Reported by: LV GORDILLO on 03/23/161942 Topiramate (Topiramate) 50 Mg Tablet, 50 MG PO HS, (Reported) Entered as Reported by: VITO MEDRANO on 04/12/191132 Topiramate (Topiramate) 50 Mg Tablet, 100 MG PO DAILY, (Reported) Entered as Reported by: VITO MEDRANO on 04/12/191136 Review of Systems Review of Systems Constitutional: No chills, No diaphoresis EENTM: No ear discharge, No ear pain Respiratory: No cough, No phlegm, No short of breath Cardiovascular: chest pain; No Hx of Intervention, No palpitations, No syncope, No vascular heart diseas Gastrointestinal: No abdominal pain, No constipation, No diarrhea, No nausea, No vomiting Genitourinary: No discharge, No dysuria Musculoskeletal: No back pain, No joint pain All Other Systems Reviewed Negative Unless Noted: Yes Past Flwaekf-Vcqgax-Hfqtpn Hx Patient Social History Tobacco Use?: No Substance use?: No Alcohol Use?: Yes Alcohol Frequency: Once in a while Pt feels they are or have been: No Immunizations Up To Date Tetanus Booster (TDap): Less than 5yrs First/Initial COVID19 Vaccinat: 2020 Second COVID19 Vaccination Chirag: 2020 COVID19 Vaccine Bilingual Receptionist: GEOVANY Seasonal Allergies Seasonal Allergies: No Past Medical History Surgery/Hospitalization HX: HX TBI Surgeries: Yes (ROTATOR CUFF REPAIR RT SHOULDER/LT TORN LIGAMENT REPAIR, NECK, BACK ) Orthopedic Respiratory: Yes (SLEEP APNEA, USES C-PAP) Pneumonia, Chronic Bronchitis, Sleep Apnea Currently Using CPAP: Yes Currently Using BIPAP: No Cardiac: Yes High Cholesterol, Hypertension Neurological: Yes (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; 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) Headaches /Migraines, Seizure Disorder, Traumatic Brain Injury Reproductive Disorders: No Sexually Transmitted Disease: No HIV/AIDS: No Genitourinary: No Gastrointestinal: Yes Gastroesophageal Reflux, Polyps Musculoskeletal: Yes (HERNIATED DISC) Arthritis, Fractures, Gout Endocrine: Yes Hypothyroidsim, Diabetes, Non-Insulin dep HEENT: No Loss of Vision: Denies Hearing Impairment: Denies Cancer: No Psychosocial: Yes Anxiety Integumentary: No Blood Disorders: No Adverse Reaction/Blood Tranf: No (N/A) Family Medical History No Pertinent Family Hx PAST SURGICAL HISTORY: -SHOULDER SURGERY X 2 -CERVICAL SPINE SURGERY WITH HARDWARE -BACK SURGERY X 3 -SPINAL NERVE STIMULATOR -BICEPS SURGERY -TESTICULAR SURGERY -COLONOSCOPIES/POLYPECTOMY Physical Exam Vital Signs - First Documented 04/22/21 18:30 Temp 36.7 Pulse 105 Resp 40 B/P (MAP) 153/86 (108) Pulse Ox 98 Capillary Refill : Less Than 3 Seconds Height: 5'11.00" Weight: 285lbs. 0oz. 129.970335hx; 43.00 BMI Method:Actual General Appearance: moderate distress, obese Eyes: Left Eye Scleral Icterus, Left Eye Other HEENT: PERRL/EOMI, TMs normal, pharynx normal Neck: full range of motion, supple, normal inspection Respiratory: lungs clear, normal breath sounds, no respiratory distress, no accessory muscle use Cardiovascular: normal peripheral pulses, regular rate, rhythm Gastrointestinal: normal bowel sounds, non tender, soft Extremities: normal range of motion, non-tender, normal inspection, no pedal edema, normal capillary refill Neurologic/Psychiatric: alert, normal mood/affect, oriented x 3 Skin: normal color, warm/dry Focused Exam Lactate Level 04/22/21 19:08: Lactic Acid Level 1.51 Lactic Acid Level Laboratory Tests Test 04/22/21 19:08 Lactic Acid Level 1.51 MMOL/L (0.50-2.00) Progress/Results/Core Measures Suspected Sepsis SIRS Temperature: Pulse: 105 Respiratory Rate: 40 Laboratory Tests 04/22/21 18:45: White Blood Count 11.0 Blood Pressure 153 /86 Mean: 108 04/22/21 19:08: Lactic Acid Level 1.51 Laboratory Tests 04/22/21 18:45: Creatinine 0.82, INR Comment 0.9, Platelet Count 166, Total Bilirubin 0.3 Results/Orders Lab Results Laboratory Tests Test 04/22/21 18:45 04/22/21 19:08 04/22/21 19:26 Range/Units White Blood Count 11.0 4.3-11.0 10^3/uL Red Blood Count 4.95 4.30-5.52 10^6/uL Hemoglobin 15.3 13.3-17.7 g/dL Hematocrit 48 40-54 % Mean Corpuscular Volume 96 80-99 fL Mean Corpuscular Hemoglobin 31 25-34 pg Mean Corpuscular Hemoglobin Concent 32 32-36 g/dL Red Cell Distribution Width 14.7 H 10.0-14.5 % Platelet Count 166 130-400 10^3/uL Mean Platelet Volume 11.3 9.0-12.2 fL Immature Granulocyte % (Auto) 1 % Neutrophils (%) (Auto) 75 42-75 % Lymphocytes (%) (Auto) 17 12-44 % Monocytes (%) (Auto) 6 0-12 % Eosinophils (%) (Auto) 1 0-10 % Basophils (%) (Auto) 1 0-10 % Neutrophils # (Auto) 8.2 H 1.8-7.8 10^3/uL Lymphocytes # (Auto) 1.9 1.0-4.0 10^3/uL Monocytes # (Auto) 0.7 0.0-1.0 10^3/uL Eosinophils # (Auto) 0.1 0.0-0.3 10^3/uL Basophils # (Auto) 0.1 0.0-0.1 10^3/uL Immature Granulocyte # (Auto) 0.1 0.0-0.1 10^3/uL Prothrombin Time 12.8 12.2-14.7 SEC INR Comment 0.9 0.8-1.4 Activated Partial Thromboplast Time 23 L 24-35 SEC D-Dimer 0.82 H 0.00-0.49 UG/ML Sodium Level 139 135-145 MMOL/L Potassium Level 4.2 3.6-5.0 MMOL/L Chloride Level 107 98-107 MMOL/L Carbon Dioxide Level 22 21-32 MMOL/L Anion Gap 10 5-14 MMOL/L Blood Urea Nitrogen 12 7-18 MG/DL Creatinine 0.82 0.60-1.30 MG/DL Estimat Glomerular Filtration Rate 109 BUN/Creatinine Ratio 15 Glucose Level 136 H 70-105 MG/DL Calcium Level 8.9 8.5-10.1 MG/DL Corrected Calcium 9.0 8.5-10.1 MG/DL Total Bilirubin 0.3 0.1-1.0 MG/DL Aspartate Amino Transf (AST/SGOT) 38 H 5-34 U/L Alanine Aminotransferase (ALT/SGPT) 56 H 0-55 U/L Alkaline Phosphatase 47 40-136 U/L Troponin I < 0.028 <0.028 NG/ML C-Reactive Protein High Sensitivity 0.21 0.00-0.50 MG/DL Total Protein 7.2 6.4-8.2 GM/DL Albumin 3.9 3.2-4.5 GM/DL Lactic Acid Level 1.51 0.50-2.00 MMOL/L Urine Color YELLOW Urine Clarity CLEAR Urine pH 6.0 5-9 Urine Specific [place] 1.025 H 1.016-1.022 Urine Protein NEGATIVE NEGATIVE Urine Glucose (UA) NEGATIVE NEGATIVE Urine Ketones NEGATIVE NEGATIVE Urine Nitrite NEGATIVE NEGATIVE Urine Bilirubin NEGATIVE NEGATIVE Urine Urobilinogen 0.2 < = 1.0 MG/DL Urine Leukocyte Esterase NEGATIVE NEGATIVE Urine RBC (Auto) NEGATIVE NEGATIVE Urine RBC 0-2 /HPF Urine WBC 0-2 /HPF Urine Squamous Epithelial Cells 0-2 /HPF Urine Renal Epithelial Cells NONE /HPF Urine Crystals NONE /LPF Urine Bacteria NEGATIVE /HPF Urine Casts NONE /LPF Urine Mucus NEGATIVE /LPF Urine Culture Indicated CULTURE PENDING My Orders Orders - FELICIA AYOUB Cbc With Automated Diff (04/22/21 18:51) Comprehensive Metabolic Panel (04/22/21 18:51) Blood Culture (04/22/21 18:51) Sputum Culture (04/22/21 18:51) Urinalysis (04/22/21 18:51) Urine Culture (04/22/21 18:51) Protime With Inr (04/22/21 18:51) Partial Thromboplastin Time (04/22/21 18:51) Chest 1 View, Ap/Pa Only (04/22/21 18:51) Ed Iv/Invasive Line Start (04/22/21 18:51) Ed Iv/Invasive Line Start (04/22/21 18:51) Ekg Tracing (04/22/21 18:51) Troponin I Ryan (04/22/21 18:51) Vital Signs Adult Sepsis Patie Q15M (04/22/21 18:51) O2 (04/22/21 18:51) Remove Rings In Anticipation O (04/22/21 18:51) Lactic Acid Analyzer (04/22/21 18:51) Lactated Ringers (Lr 1000 Ml Iv Solution (04/22/21 19:00) Ns Iv 1000 Ml (Sodium Chloride 0.9%) (04/22/21 19:00) Ceftriaxone 1 Gm Pre-Mix (Rocephin 1 Gm (04/22/21 19:00) Azithromycin Injection (Zithromax Inject (04/22/21 19:00) Aspirin Chewable Tablet (Baby Aspirin Ch (04/22/21 19:00) Fibrin Degradation Products (04/22/21 18:51) Hs C Reactive Protein (04/22/21 18:51) Ct Angio Chest W (04/22/21 19:42) Iohexol Injection (Omnipaque 350 Mg/Ml 1 (04/22/21 20:00) Received Contrast (Hold Metformin- Contr (04/22/21 20:00) Ns (Ivpb) (Sodium Chloride 0.9% Ivpb Bag (04/22/21 20:00) Medications Given in ED Current Medications Medications Dose Ordered Sig/Asaf Route Start Time Stop Time Status Last Admin Dose Admin Aspirin 324 mg ONCE ONCE PO 04/22/21 19:00 04/22/21 19:01 DC 04/22/21 19:15 324 MG Iohexol 100 ml ONCE ONCE IV 04/22/21:00 04/22/21 20:01 DC 04/22/21 20:36 88 ML Lactated Ringer's 1,000 ml @ 0 mls/hr Q0M ONCE IV 04/22/21 19:00 04/22/21 19:01 DC 04/22/21 19:15 1,000 MLS/HR Sodium Chloride 100 ml ONCE ONCE IV 04/22/21 20:00 04/22/21 20:01 DC 04/22/21 20:36 80 ML Vital Signs/I&O 04/22/21 18:30 Temp 36.7 Pulse 105 Resp 40 B/P (MAP) 153/86 (108) Pulse Ox 98 Capillary Refill : Less Than 3 Seconds Blood Pressure Mean: 108 Progress Note #1: Time: 19:06 Progress Note Reproducible chest pain is pleuritic in nature. A pulmonary embolism or bacteri al pneumonia come to mind. Because of his tachycardia and tachypnea we are running a septic work-up with Rocephin and azithromycin. Will obtain a D-dimer while we're also collecting his creatinine before with elect whether or not to do a CT angiogram of his chest. He does not anything for the pain right now. We'll give him 324 mg of aspirin to chew and swallow. If he does start hurting will trial some nitroglycerin. He doesn't have a history of coronary disease, smoking, hypertension or hyperlipidemia but he does have prediabetes as a risk factor as well as obesity. We'll give him 2 L which is far greater than 20 mL/kg based on an ideal body weight. Progress Note #2: Time: 19:42 Progress Note He has a little pleural effusion in the chest but no white count cough fever or infiltrates on the chest x-ray. D-dimer does not rule out a blood clot so we'll get a CT angiogram. ECG Initial ECG Impression Date: Apr 22, 2021 Initial ECG Impression Time: 19:06 Initial ECG Rate: 94 Initial ECG Rhythm: Normal Sinus Initial ECG Intervals: Normal Initial ECG Impression: Normal Comment Normal sinus rhythm without clinically relevant ST elevation or depression Diagnostic Imaging Diagonstic Imaging: Xray Plain Films/CT/US/NM/MRI: chest Comments [facility] [place], [place] NAME: MIRIAN ANTONY [facility] REC#: [id number] PT STATUS: REG ER : 1975 PHYSICIAN: FELICIA AYOUB MD ADMIT DATE: 04/22/21/ER Draft Date of Exam:04/22/21 CHEST 1 VIEW, AP/PA ONLY INDICATION: Chest pain and shortness of air. TIME OF EXAM: 7:22 PM Correlation is made with prior chest from 07/10/2020. Heart size normal. Lungs are clear. No infiltrates are seen. No effusion or pneumothorax. There are postoperative changes lower cervical spine. IMPRESSION: No acute cardiopulmonary process is detected. Dictated on workstation # [id number] Dict: 04/22/211926 Trans: 04/22/211950 CVB [id number] Interpreted by: ARVIND ARANGO MD Electronically signed by: Reviewed: Reviewed by Me Diagonstic Imaging: CT Plain Films/CT/US/NM/MRI: chest Comments [facility] [place], [place] NAME: MIRIAN ANTONY [facility] REC#: [id number] PT STATUS: REG ER : 1975 PHYSICIAN: FELICIA AYOUB MD ADMIT DATE: 04/22/21/ER Signed Date of Exam:04/22/21 CT ANGIO CHEST W PROCEDURE: CT angiography of the chest with contrast. TECHNIQUE: Multiple contiguous axial images were obtained through the chest after uneventful bolus administration of intravenous contrast. 3D reconstructed CTA MIP acquisitions were also performed. Auto Exposure Controls were utilized during the CT exam to meet ALARA standards for radiation dose reduction. INDICATION: COVID patient with shortness of air, chest pain. Exam compared with study 06/06/2020. FINDINGS: There are no intraluminal pulmonary arterial filling defects. There were no findings of pulmonary arterial embolus, thoracic aorta patent and nonaneurysmal and nonacute. There is no pleural or pericardial effusion. No lung mass. No thoracic adenopathy. The lungs are clear. No infiltrate. No chest wall pathology. The visualized upper abdomen unremarkable. IMPRESSION: Negative for PE, aortic disease or other acute cardiopulmonary abnormalities. Dictated by: Dictated on workstation # [id number] Dict: 04/22/212040 Trans: 04/22/212203 CVB [id number] Interpreted by: VALDEMAR TURCIOS Electronically signed by: VALDEMAR TURCIOS 04/22/212203 Reviewed: Reviewed by Me Departure Impression Primary Impression: Pleuritic chest pain Disposition: HOME, SELF-CARE Condition: Stable Departure-Patient Inst. Decision time for Depature: 23:25 Referrals: SHO TA MD (PCP/Family) Primary Care Physician Patient Instructions: Pleuritic Chest Pain (DC) Add. Discharge Instructions: I cannot find evidence of a heart attack, pneumonia, follow-up lung, blood clot or other reason for your chest pain. Your chest pain sounds like pleurisy so I included a handout that you can review. Typically this will resolve in a few weeks and can be caused by inhalation of the microscopic irritant, allergen or small infection. I do not think at this time you have any evidence of an infection significant enough to need antibiotics. If you develop fevers, productive cough or other new worrisome symptoms then I would encourage you to follow-up with your doctor or return to the nearest ER for management. Naproxen 500 mg twice a day as necessary for the chest wall pain. Topical creams may also be helpful as well as vapor rubs and humidifiers. All discharge instructions reviewed with patient and/or family. Voiced understanding. Scripts Naproxen (Naprosyn) 500 Mg Tablet 500 MG PO BID, #30 TAB 0 Refills Prov: FELICIA AYOUB 04/22/21 FELICIA AYOUB Apr 22, 2021 19:08
[2021-04-22 19:19] LABS: FIBRIN DEGRADATION PRODUCTS 0.82 UG/ML (0.00-0.49); INR 0.9 (0.8-1.4); PROTHROMBIN TIME PATIENT 12.8 SEC (12.2-14.7)
[2021-04-22 19:29] LABS: ALANINE AMINOTRANSFERASE 56 U/L (0-55); ALBUMIN 3.9 GM/DL (3.2-4.5); ALKALINE PHOSPHATASE 47 U/L (40-136); BILIRUBIN,TOTAL 0.3 MG/DL (0.1-1.0); BUN/CREATININE RATIO 15; CALCIUM 8.9 MG/DL (8.5-10.1); CARBON DIOXIDE 22 MMOL/L (21-32); CHLORIDE 107 MMOL/L (98-107); CREATININE SERUM 0.82 MG/DL (0.60-1.30); GFR ESTIMATED 109; GLUCOSE 136 MG/DL (70-105); POTASSIUM 4.2 MMOL/L (3.6-5.0); SODIUM 139 MMOL/L (135-145); TOTAL PROTEIN 7.2 GM/DL (6.4-8.2)
[2021-04-22 19:34] LABS: BILIRUBIN,URINE NEGATIVE (NEGATIVE); CLARITY,URINE CLEAR; COLOR,URINE YELLOW; GLUCOSE, URINE (UA) NEGATIVE (NEGATIVE); KETONES,URINE NEGATIVE (NEGATIVE); LEUKOCYTE ESTERASE ,URINE NEGATIVE (NEGATIVE); NITRITE,URINE NEGATIVE (NEGATIVE); PROTEIN,URINE NEGATIVE (NEGATIVE)
[2021-04-22 19:42] LABS: BACTERIA,URINE NEGATIVE /HPF; RBC,URINE 0-2 /HPF; SQUAMOUS EPITHELIAL CELL,UR 0-2 /HPF; WBC,URINE 0-2 /HPF
--- NOTE | 2021-04-22 19:51 | Diagnostic Imaging Report ---
INDICATION: Chest pain and shortness of air. TIME OF EXAM: 7:22 PM Correlation is made with prior chest from 07/10/2020. Heart size normal. Lungs are clear. No infiltrates are seen. No effusion or pneumothorax. There are postoperative changes lower cervical spine. IMPRESSION: No acute cardiopulmonary process is detected. Dictated by: Dictated on workstation # [id number]
[2021-04-22] MEDS ORDERED: NS 100 ML (IVPB) BAG IV ONE (20:00)
[2021-04-22] MEDS ORDERED: IOHEXOL 350 MG/ML 100 ML (OMNIPAQUE 350) VIAL IV ONE (20:00)
[2021-04-22] MEDS ORDERED: HOLD METFORMIN - RECEIVED CONTRAST 20 ML VIAL IV SCH (20:00)
--- NOTE | 2021-04-22 20:57 | Diagnostic Imaging Report ---
PROCEDURE: CT angiography of the chest with contrast. TECHNIQUE: Multiple contiguous axial images were obtained through the chest after uneventful bolus administration of intravenous contrast. 3D reconstructed CTA MIP acquisitions were also performed. Auto Exposure Controls were utilized during the CT exam to meet ALARA standards for radiation dose reduction. INDICATION: COVID patient with shortness of air, chest pain. Exam compared with study 06/06/2020. FINDINGS: There are no intraluminal pulmonary arterial filling defects. There were no findings of pulmonary arterial embolus, thoracic aorta patent and nonaneurysmal and nonacute. There is no pleural or pericardial effusion. No lung mass. No thoracic adenopathy. The lungs are clear. No infiltrate. No chest wall pathology. The visualized upper abdomen unremarkable. IMPRESSION: Negative for PE, aortic disease or other acute cardiopulmonary abnormalities. Dictated by: Dictated on workstation # [id number]
[2021-04-22] MEDS ORDERED: NAPR-1071 PO (23:33)
[2021-04-22] MEDS ORDERED: KETOROLAC 30 MG/ML VIAL IVP ONE (23:45)
== END 2021-04-22 23:46 | disposition home or self-care (01) ==
LOC: EDUNIT# 18:27 → ER 18:29
DX: R07.81 Pleurodynia (principal); G47.30 Sleep apnea, unspecified; I10 Essential (primary) hypertension; E78.00 Pure hypercholesterolemia, unspecified; E11.9 Type 2 diabetes mellitus without complications; E66.9 Obesity, unspecified; F41.9 Anxiety disorder, unspecified; E03.9 Hypothyroidism, unspecified; G40.909 Epilepsy, unspecified, not intractable, without status epilepticus; Z68.41 Body mass index [BMI] 40.0-44.9, adult; Z79.890 Hormone replacement therapy; Z87.820 Personal history of traumatic brain injury; Z79.899 Other long term (current) drug therapy
CPT/HCPCS: 36415; 71045; 71275; 80053; 81000; 83605; 84484; 85025; 85379; 85610; 85730; 86141; 87040; 87088; 93005

== ENCOUNTER 2021-07-27 19:56 | Emergency (ER) | payer MEDICARE, OTHER ==
[~2021-07-27 19:56] MED LIST changes: +NAPR-1071 PO
[2021-07-27] MEDS ORDERED: ONDANSETRON 4 MG/2 ML (SDV) Z0FRAN IVP ONE (20:30)
[2021-07-27] MEDS ORDERED: LIDOCAINE 2% VISCOUS 15 ML UDC PO ONE (20:30)
[2021-07-27] MEDS ORDERED: ANTACID SUSP 30 ML UDC (MYLANTA) PO ONE (20:30)
[2021-07-27 20:33] LABS: BASOPHILS % (AUTO) 1 % (0-10); EOSINOPHILS # (AUTO) 0.1 10^3/uL (0.0-0.3); EOSINOPHILS % (AUTO) 2 % (0-10); HEMATOCRIT 45 % (40-54); HEMOGLOBIN 14.6 g/dL (13.3-17.7); LYMPHOCYTES # (AUTO) 1.9 10^3/uL (1.0-4.0); LYMPHOCYTES % (AUTO) 23 % (12-44); MEAN CORPUSCULAR HEMOGLOBIN 32 pg (25-34); MEAN CORPUSCULAR HGB CONC 33 g/dL (32-36); MEAN CORPUSCULAR VOLUME 96 fL (80-99); MEAN PLATELET VOLUME 12.6 fL (9.0-12.2); MONOCYTES # (AUTO) 0.7 10^3/uL (0.0-1.0); MONOCYTES % (AUTO) 8 % (0-12); NEUTROPHILS # (AUTO) 5.4 10^3/uL (1.8-7.8); NEUTROPHILS % (AUTO) 66 % (42-75); PLATELET COUNT 142 10^3/uL (130-400); WHITE BLOOD COUNT 8.1 10^3/uL (4.3-11.0)
[2021-07-27 20:54] LABS: ALBUMIN 3.8 GM/DL (3.2-4.5); BILIRUBIN,TOTAL 0.4 MG/DL (0.1-1.0); CALCIUM 8.7 MG/DL (8.5-10.1); CREATININE SERUM 0.72 MG/DL (0.60-1.30); MAGNESIUM 1.7 MG/DL (1.6-2.4); POTASSIUM 3.6 MMOL/L (3.6-5.0); TOTAL PROTEIN 6.6 GM/DL (6.4-8.2)
--- NOTE | 2021-07-27 20:56 | Diagnostic Imaging Report ---
EXAMINATION: Chest 1 view. HISTORY: Chest pain. COMPARISON: 04/22/2021. FINDINGS: The lung volumes are normal. No focal consolidation is seen. No large pleural effusion or pneumothorax is seen. The cardiomediastinal silhouette is normal in size and contour. No acute osseous abnormality is seen. A spinal cord stimulator is seen overlying the midthoracic spine. IMPRESSION: No acute pleuroparenchymal process. Dictated by: Dictated on workstation # [id number]
[2021-07-27] MEDS ORDERED: FAMOTIDINE 20MG/2ML IV (PEPCID) IVP ONE (21:15)
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
[2021-07-27 21:49] LABS: FREE T4 (FREE THYROXINE) 0.91 NG/DL (0.70-1.48)
[2021-07-27] MEDS ORDERED: PANT40TA2 PO (23:07)
[2021-07-27] MEDS ORDERED: ONDA4TAB11 SL (23:07)
[2021-07-27 23:15] VITALS: BP 123/73
== END 2021-07-27 23:20 | disposition home or self-care (01) ==
LOC: EDUNIT# 19:56 → ER 19:58
DX: R11.2 Nausea with vomiting, unspecified (principal); R07.89 Other chest pain
CPT/HCPCS: 36415; 71045; 80053; 83735; 83874; 84439; 84443; 84484; 85025; 85610; 85730; 93005; 93041

== ENCOUNTER 2021-09-12 22:07 | Observation (INO) | payer MEDICARE, OTHER ==
[~2021-09-12] VITALS: Ht 180.3 cm; Wt 118.3 kg
[~2021-09-12 22:07] MED LIST changes: +ONDA4TAB11 SL; +PANT40TA2 PO
[2021-09-12 22:27] LABS: BASOPHILS # (AUTO) 0.1 10^3/uL (0.0-0.1); BASOPHILS % (AUTO) 1 % (0-10); EOSINOPHILS # (AUTO) 0.2 10^3/uL (0.0-0.3); EOSINOPHILS % (AUTO) 2 % (0-10); HEMATOCRIT 48 % (40-54); LYMPHOCYTES # (AUTO) 2.7 10^3/uL (1.0-4.0); LYMPHOCYTES % (AUTO) 34 % (12-44); MEAN CORPUSCULAR HEMOGLOBIN 32 pg (25-34); MEAN CORPUSCULAR HGB CONC 33 g/dL (32-36); MEAN CORPUSCULAR VOLUME 96 fL (80-99); MEAN PLATELET VOLUME 12.6 fL (9.0-12.2); MONOCYTES # (AUTO) 0.7 10^3/uL (0.0-1.0); MONOCYTES % (AUTO) 9 % (0-12); NEUTROPHILS # (AUTO) 4.3 10^3/uL (1.8-7.8); NEUTROPHILS % (AUTO) 55 % (42-75); PLATELET COUNT 133 10^3/uL (130-400); WHITE BLOOD COUNT 7.9 10^3/uL (4.3-11.0)
[2021-09-12 22:39] LABS: ALBUMIN 3.9 GM/DL (3.2-4.5); CHLORIDE 110 MMOL/L (98-107); POTASSIUM 3.7 MMOL/L (3.6-5.0); SODIUM 140 MMOL/L (135-145)
[2021-09-12 22:41] LABS: GLUCOSE 89 MG/DL (70-105); TOTAL PROTEIN 6.8 GM/DL (6.4-8.2)
--- NOTE | 2021-09-12 22:41 | Diagnostic Imaging Report ---
PROCEDURE: CT head without contrast. TECHNIQUE: Multiple contiguous axial images were obtained through the brain without the use of intravenous contrast. Auto Exposure Controls were utilized during the CT exam to meet ALARA standards for radiation dose reduction. INDICATION: Seizure-like activity. EXAMINATION: CT brain without contrast 09/12/2021. FINDINGS: There is no hemorrhage or infarct. No mass, mass effect or midline shift. No hydrocephalus. Thick calcifications noted along the midline of the falx, chronic in appearance. There are no acute fractures. The mastoid air cells and maxillary sinuses appear clear. IMPRESSION: 1. Chronic findings with no acute intracranial process. Dictated by: Dictated on workstation # [id number]
[2021-09-12 22:42] LABS: CARBON DIOXIDE 19 MMOL/L (21-32)
[2021-09-12 22:43] LABS: BILIRUBIN,TOTAL 0.5 MG/DL (0.1-1.0)
[2021-09-12 22:45] LABS: ALKALINE PHOSPHATASE 37 U/L (40-136); CREATININE SERUM 0.72 MG/DL (0.60-1.30); GFR ESTIMATED 113
[2021-09-12 22:46] LABS: BUN/CREATININE RATIO 15
[2021-09-12 22:48] LABS: ALANINE AMINOTRANSFERASE 44 U/L (0-55)
--- NOTE | 2021-09-12 22:50 | Diagnostic Imaging Report ---
INDICATION: CVA, seizure-like activity. Headache. Heat exposure. EXAMINATION: Chest 09/12/2021 COMPARISON: 07/27/2021 FINDINGS: The heart is unremarkable. Pulmonary vascularity appears normal. There are no infiltrates, effusions or pneumothorax. Postoperative changes noted in cervical spine. IMPRESSION: 1. No acute cardiopulmonary process. Dictated by: Dictated on workstation # [id number]
[2021-09-12] MEDS ORDERED: NS IV 1000 ML 1,000 ML IV SCH (23:45)
--- NOTE | 2021-09-12 23:58 | ED Neurological Problem ---
General Chief Complaint: Neurological Problems Stated Complaint: POSS STROKE Nursing Triage Note: PT ARRIVAL TO ER WITH SPOUSE WITH COMPLAINT OF STROKE LIKE SYMPTOMS. STATES THAT AROUND 2029 WHILE SITTING IN GATOR VEHICLE, PATIENT HAD SOME CONFUSION, STRUGGLE WITH SPEAKING, AND WEAKNESS. PT ALSO HAD SOME RIGHT SIDED FACIAL DROOP. STATES THAT PATIENT HAS HISTORY OF TBI IN 2008 AND THOUGHT THESE WERE SOME OF HIS SYMPTOMS HE HAS FROM THE TBI. STATES THAT HE SOMETIMES HAS THESE SYMPTOMS AND THEN THEY SUBSIDE QUICKLY. PT COMPLAINS OF HEADACHE EARLIER, BUT ITS PRETTY MUCH SUBSIDED SINCE ARRIVING. Source: patient Exam Limitations: no limitations History of Present Illness Date Seen by Provider: Sep 12, 2021 Time Seen by Provider: 22:15 Initial Comments Patient to the ER with his with chief complaint that around 2029 he was sitting in a Gator after having a particularly hard, hot day and having some difficulty expressing himself, weakness and right-sided facial droop. Since he had a TBI in 2008 he has had the symptoms except for the facial droop. He had facial droop in 2008 as well as right-sided paralysis. He does have a history of seizures related to his TBI. He had a longer recovery period than typical which concerned him. His felt that this was fairly par for him however when he finally did come to about an hour later he asked to go to the ER to be checked out because he felt this was more significant than his typical several time a week postconcussive syndrome. His notes that his symptoms do get worse when he is dehydrated. He does not have a history of stroke, hypertension, hyperlipidemia, smoking, diabetes, early familial onset coronary or stroke disease. No personal history of coronary disease. Neurologist is Dr. Seo at [place], [place] Timing/Duration: 1 hour Allergies and Home Medications Allergies Coded Allergies: NSAIDS (Non-Steroidal Anti-Inflamma (Verified Adverse Reaction, Mild, GI upset, 07/27/21) Instructed to avoid NSAIDS due to mini gastric bypass Patient Home Medication List Home Medication List Reviewed: Yes Aripiprazole (Aripiprazole) 15 Mg Tablet, 15 MG PO DAILY, (Reported) Entered as Reported by: VITO MEDRANO on 04/12/19 1137 Atorvastatin Calcium (Atorvastatin Calcium) 10 Mg Tablet, 10 MG PO HS, (Repor sabino) Entered as Reported by: VITO MEDRANO on 04/12/191132 Cholecalciferol (Vitamin D3) (Vitamin D-3) 2,000 Unit Tablet, 2,000 UNIT PO DAILY, (Reported) Entered as Reported by: VITO MEDRANO on 04/12/191132 Divalproex Sodium (Divalproex Sodium) 500 Mg Tablet.dr, 500 MG PO BID, (Reported) Entered as Reported by: LV GORDILLO on 03/23/161942 Escitalopram Oxalate (Escitalopram Oxalate) 20 Mg Tablet, 20 MG PO HS, (Reported) Entered as Reported by: LV GORDILLO on 03/23/161942 Levothyroxine Sodium (Levothyroxine Sodium) 137 Mcg Tablet, 137 MCG PO DAILY, (Reported) Entered as Reported by: VITO MEDRANO on 04/12/191132 Multivit-Min/Folic/Vit K/Lycop (Men's Multivitamin Tablet) 1 Each Tablet, 1 EACH PO DAILY, (Reported) Entered as Reported by: VITO MEDRANO on 04/12/191136 Naproxen (Naprosyn) 500 Mg Tablet, 500 MG PO BID Prescribed by: FELICIA AYOUB on 04/22/212332 Ondansetron (Ondansetron Odt) 4 Mg Tab.rapdis, 4 MG SL Q4H PRN for NAUSEA/VOMITING Prescribed by: DESHAWN HOLLY on 07/27/212306 Pantoprazole Sodium (Protonix) 40 Mg Tablet.dr, 40 MG PO DAILY Prescribed by: DESHAWN HOLLY on 07/27/212306 Prazosin HCl (Prazosin HCl) 2 Mg Capsule, 2 MG PO DAILY, (Reported) Entered as Reported by: VITO MEDRANO on 04/12/191136 Prazosin HCl (Prazosin HCl) 1 Mg Capsule, 2 MG PO HS, (Reported) Entered as Reported by: VITO MEDRANO on 04/12/191136 Propranolol HCl (Propranolol HCl ER) 60 Mg Cap.sa.24h, 60 MG PO DAILY, (Reported) Entered as Reported by: LV GORDILLO on 03/23/161942 Topiramate (Topiramate) 50 Mg Tablet, 50 MG PO HS, (Reported) Entered as Reported by: VITO MEDRANO on 1/15/20 1133 Topiramate (Topiramate) 50 Mg Tablet, 100 MG PO DAILY, (Reported) Entered as Reported by: VITO MEDRANO on 04/12/19 1137 Review of Systems Review of Systems Constitutional: No chills, No diaphoresis Eyes: Denies Blurred Vision Ears, Nose, Mouth, Throat: denies ear pain, denies ear discharge Respiratory: No cough, No phlegm, No short of breath Cardiovascular: No chest pain, No edema Gastrointestinal: No abdominal pain, No nausea, No vomiting Genitourinary: No discharge, No dysuria Musculoskeletal: No back pain, No joint pain Psychiatric/Neurological: Denies Anxiety, Denies Depressed All Other Systems Reviewed Negative Unless Noted: Yes Past Yszilcw-Tnaela-Hkulgp Hx Patient Social History Tobacco Use?: No Use of E-Cig and/or Vaping dev: No Substance use?: No Alcohol Use?: Yes Alcohol type: Beer Alcohol Frequency: Rarely Pt feels they are or have been: No Immunizations Up To Date Tetanus Booster (TDap): Less than 5yrs Influenza Vaccine Up-to-Date: Yes; Up-to-Date First/Initial COVID19 Vaccinat: 2020 Second COVID19 Vaccination Chirag: 2020 Third COVID19 Vaccination Date: 2020 Seasonal Allergies Seasonal Allergies: No Past Medical History Surgery/Hospitalization HX: HX TB GASTRIC BYPASS, SPINAL STIMULATOR IN BACK Surgeries: Yes (ROTATOR CUFF REPAIR RT SHOULDER/LT TORN LIGAMENT REPAIR, NECK, BACK ) Orthopedic Respiratory: Yes (SLEEP APNEA, USES C-PAP) Pneumonia, Chronic Bronchitis, Sleep Apnea Currently Using CPAP: Yes Currently Using BIPAP: No Cardiac: Yes High Cholesterol, Hypertension Neurological: Yes (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;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) Headaches /Migraines, Seizure Disorder, Traumatic Brain Injury Reproductive Disorders: No Sexually Transmitted Disease: No HIV/AIDS: No Genitourinary: No Gastrointestinal: Yes Gastroesophageal Reflux, Polyps Musculoskeletal: Yes (HERNIATED DISC) Arthritis, Fractures, Gout Endocrine: Yes Hypothyroidsim, Diabetes, Non-Insulin dep HEENT: No Loss of Vision: Denies Hearing Impairment: Denies Cancer: No Psychosocial: Yes Anxiety Integumentary: No Blood Disorders: No Adverse Reaction/Blood Tranf: No (N/A) Family Medical History No Pertinent Family Hx PAST SURGICAL HISTORY: -SHOULDER SURGERY X 2 -CERVICAL SPINE SURGERY WITH HARDWARE -BACK SURGERY X 3 -SPINAL NERVE STIMULATOR -BICEPS SURGERY -TESTICULAR SURGERY -COLONOSCOPIES/POLYPECTOMY Physical Exam Vital Signs Vital Signs - First Documented 09/12/21 22:43 Temp 36.5 Pulse 71 Resp 18 B/P (MAP) 131/89 (103) Pulse Ox 94 Capillary Refill : Less Than 3 Seconds Height, Weight, BMI Height: 5'11.00" Weight: 285lbs. 0oz. 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, no motor/sensory deficits, alert, normal mood/affect, oriented x 3 Crainal Nerves: normal hearing, normal speech, PERRL Coordination/Gait: normal finger to nose Motor/Sensory: no motor deficit, no sensory deficit, no pronator drift Skin: normal color, warm/dry Stroke Onset of Symptoms Date of Onset of Symptoms: Sep 12, 2021 Time of Symptom Onset: 20:30 Onset of Symptoms: Yes Symptoms onset unknown: No NIH Stroke Scale Assessment Select: Initial Level of Consciousness: 0=Alert (0), Level of Consciousness- Questions: 0=Answers both month/age (0), LOC Commands: 0=Performs both tasks (0), Gaze: Normal (0), Visual Dennis: 0=No visual loss (0), Facial Movement (Facial Paresis): 0=Normal symmetrical mnt (0), Motor Function-Arms Right: 0=No drift (0), Motor Function-Arms Left: 0=No drift (0), Motor Function-Legs Right: 0=No drift (0), Motor Function-Legs Left: 0=No drift (0), Limb Ataxia: 0=Absent (0), Sensory: 0=Normal:no loss (0), Best Language: 0=No aphasia (0), Dysarthria: 0=Normal (0), Extinction & Inattention: 0=No abnormality (0), To bartolo: 0 Stroke Thrombolytic Exclusion Age 18 or Over: Yes Acute intenal hemorrhage: No History of CVA: No Uncontrolled Coagulation Defec: No Intracranial Hemorrhage: No Severe Hypertension: No GI or Bleed: No Subarachnoid Hemorrhage: No Intracranial Neoplasm/Aneurysm: No Oral Anticoagulants: No Surgery or Trauma: No Puncture of Non-Compressible V: No Recent CPR: No Diabetic Hemorrhagic Retinopat: No Organ Biopsy: No Recent Obstetric Delivery: No Glucose: No Significant Hepatic Dysfunctio: No NIH Stoke Scale >22: No Bacterial Endocarditis: No Pericarditis: No Improving Symptoms: No Platelets: No TPA Contraindication: No IV - TPa Received IV - TPa Procedure Performed?: No (And significant benefits versus risk) Progress/Results/Core Measures Results/Orders Lab Results Laboratory Tests Test 09/12/21 22:17 Range/Units White Blood Count 7.9 4.3-11.0 10^3/uL Red Blood Count 5.05 4.30-5.52 10^6/uL Hemoglobin 16.0 13.3-17.7 g/dL Hematocrit 48 40-54 % Mean Corpuscular Volume 96 80-99 fL Mean Corpuscular Hemoglobin 32 25-34 pg Mean Corpuscular Hemoglobin Concent 33 32-36 g/dL Red Cell Distribution Width 15.2 H 10.0-14.5 % Platelet Count 133 130-400 10^3/uL Mean Platelet Volume 12.6 H 9.0-12.2 fL Immature Granulocyte % (Auto) 0 % Neutrophils (%) (Auto) 55 42-75 % Lymphocytes (%) (Auto) 34 12-44 % Monocytes (%) (Auto) 9 0-12 % Eosinophils (%) (Auto) 2 0-10 % Basophils (%) (Auto) 1 0-10 % Neutrophils # (Auto) 4.3 1.8-7.8 10^3/uL Lymphocytes # (Auto) 2.7 1.0-4.0 10^3/uL Monocytes # (Auto) 0.7 0.0-1.0 10^3/uL Eosinophils # (Auto) 0.2 0.0-0.3 10^3/uL Basophils # (Auto) 0.1 0.0-0.1 10^3/uL Immature Granulocyte # (Auto) 0.0 0.0-0.1 10^3/uL Sodium Level 140 135-145 MMOL/L Potassium Level 3.7 3.6-5.0 MMOL/L Chloride Level 110 H 98-107 MMOL/L Carbon Dioxide Level 19 L 21-32 MMOL/L Anion Gap 11 5-14 MMOL/L Blood Urea Nitrogen 11 7-18 MG/DL Creatinine 0.72 0.60-1.30 MG/DL Estimat Glomerular Filtration Rate 113 BUN/Creatinine Ratio 15 Glucose Level 89 70-105 MG/DL Calcium Level 9.0 8.5-10.1 MG/DL Corrected Calcium 9.1 8.5-10.1 MG/DL Total Bilirubin 0.5 0.1-1.0 MG/DL Aspartate Amino Transf (AST/SGOT) 38 H 5-34 U/L Alanine Aminotransferase (ALT/SGPT) 44 0-55 U/L Alkaline Phosphatase 37 L 40-136 U/L Troponin I < 0.028 <0.028 NG/ML Total Protein 6.8 6.4-8.2 GM/DL Albumin 3.9 3.2-4.5 GM/DL My Orders Orders - FELICIA AYOUB Continuous Ekg Monitoring (09/12/21 22:16) Ekg Tracing (09/12/21 22:16) Accucheck Stat ONCE (09/12/21 22:16) Ed Iv/Invasive Line Start (09/12/21 23:44) Ns Iv 1000 Ml (Sodium Chloride 0.9%) (09/12/21 23:45) Topiramate Tablet (Topamax Tablet) (09/13/21 00:30) Divalproex Delay Release Tab (Depakote T (09/13/21 00:30) Citalopram Tablet (Celexa Tablet) (09/13/21 09:00) Citalopram Tablet (Celexa Tablet) (09/13/21 09:00) Vital Signs/I&O 09/12/21 22:43 Temp 36.5 Pulse 71 Resp 18 B/P (MAP) 131/89 (103) Pulse Ox 94 Blood Pressure Mean: 103 FSBG Bedside Testing Finger Stick Blood Glucose: 83 Progress Progress Note #1: Time: 23:57 Progress Note It is felt that this is a continuation of his TBI syndrome. He is asymptomatic by the time he arrived to the ER. We will give him a liter of fluids to see if this helps. Since he has concerns about stroke we will talk to stroke neurol papito. Progress Note #2: Time: 00:08 Progress Note Discussed the case with Dr. Singh, neurologist on-call for ischemic stroke at [facility] and she agrees that this likely is a recrudescence of symptoms related to his TBI. If he is concerned that the symptoms are different from his typical presentation then she recommends a TIA work-up with observation overnight and an outpatient MRI in the next week or so as long as he is still symptom-free by tomorrow. Initial ECG Impression Date: Sep 12, 2021 Initial ECG Impression Time: 22:19 Initial ECG Rate: 67 Initial ECG Rhythm: Normal Sinus Initial ECG Intervals: Normal Initial ECG Impression: Normal Comment Normal sinus rhythm relevant ST changes. Diagnostic Imaging Diagonstic Imaging: Xray Plain Films/CT/US/NM/MRI: chest Comments [facility], [place] NAME: MIRIAN ANTONY [facility] REC#: [id number] PT STATUS: REG ER : 1975 PHYSICIAN: NABOR JENNINGS ADMIT DATE: 09/12/21/ER Signed Date of Exam:09/12/21 CHEST 1 VIEW, AP/PA ONLY INDICATION: CVA, seizure-like activity. Headache. Heat exposure. EXAMINATION: Chest 09/12/2021 COMPARISON: 07/27/2021 FINDINGS: The heart is unremarkable. Pulmonary vascularity appears normal. There are no infiltrates, effusions or pneumothorax. Postoperative changes noted in cervical spine. IMPRESSION: 1. No acute cardiopulmonary process. Dictated by: Dictated on workstation # [id number] Dict: 09/12/212244 Trans: 09/12/212256 CVB [id number] Interpreted by: KRISTAN NOONAN MD Electronically signed by: KRISTAN NOONAN MD 09/12/21 9115 Reviewed: Reviewed by Me Diagonstic Imaging: CT Plain Films/CT/US/NM/MRI: head Comments [facility] [place], [place] NAME: MIRIAN ANTONY [facility] REC#: [id number] PT STATUS: REG ER : 1975 PHYSICIAN: NABOR JENNINGS ADMIT DATE: 09/12/21/ER Signed Date of Exam:09/12/21 CT HEAD WO PROCEDURE: CT head without contrast. TECHNIQUE: Multiple contiguous axial images were obtained through the brain without the use of intravenous contrast. Auto Exposure Controls were utilized during the CT exam to meet ALARA standards for radiation dose reduction. INDICATION: Seizure-like activity. EXAMINATION: CT brain without contrast 09/12/2021. FINDINGS: There is no hemorrhage or infarct. No mass, mass effect or midline shift. No hydrocephalus. Thick calcifications noted along the midline of the falx, chronic in appearance. There are no acute fractures. The mastoid air cells and maxillary sinuses appear clear. IMPRESSION: 1. Chronic findings with no acute intracranial process. Dictated by: Dictated on workstation # [id number] Dict: 09/12/212235 Trans: 09/12/212256 CV [id number] Interpreted by: KRISTAN NOONAN MD Electronically signed by: KRISTAN NOONAN MD 09/12/217 Reviewed: Reviewed by Me Departure Communication (Admissions) Time/Spoke to Admitting Phy: 00:23 Discussed the case with Dr. Epstein and he agrees to work the patient up for potential TIA and if neurologically stable per neuro recommendations would set up for outpatient MRI I follow-up. 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 Referrals: SHO BLOOD MD (PCP/Family) Primary Care Physician FELICIA AYOUB Sep 12, 2021 23:58
[2021-09-13] MEDS ORDERED: toPIRamate 25 MG (TOPAMAX) TAB PO ONE (00:30)
[2021-09-13] MEDS ORDERED: DIVALPROEX 250 MG DELAYED RELEASE (DEPAKOTE) TAB PO ONE (00:30)
[2021-09-13 01:08] VITALS: BP 115/68
[2021-09-13] MEDS ORDERED: ACETAMINOPHEN 325 MG TABLET PO PRN (01:30)
[2021-09-13] MEDS ORDERED: ONDANSETRON 4 MG/2 ML (SDV) Z0FRAN IV PRN (01:30)
[2021-09-13 03:43] VITALS: BP 101/61
[2021-09-13 05:43] LABS: BASOPHILS % (AUTO) 0 % (0-10); EOSINOPHILS # (AUTO) 0.1 10^3/uL (0.0-0.3); EOSINOPHILS % (AUTO) 2 % (0-10); HEMATOCRIT 46 % (40-54); HEMOGLOBIN 15.1 g/dL (13.3-17.7); LYMPHOCYTES # (AUTO) 2.5 10^3/uL (1.0-4.0); LYMPHOCYTES % (AUTO) 41 % (12-44); MEAN CORPUSCULAR HEMOGLOBIN 32 pg (25-34); MEAN CORPUSCULAR HGB CONC 33 g/dL (32-36); MEAN CORPUSCULAR VOLUME 96 fL (80-99); MEAN PLATELET VOLUME 12.8 fL (9.0-12.2); MONOCYTES # (AUTO) 0.5 10^3/uL (0.0-1.0); MONOCYTES % (AUTO) 8 % (0-12); NEUTROPHILS # (AUTO) 2.9 10^3/uL (1.8-7.8); NEUTROPHILS % (AUTO) 48 % (42-75); PLATELET COUNT 110 10^3/uL (130-400); WHITE BLOOD COUNT 6.1 10^3/uL (4.3-11.0)
[2021-09-13 05:50] LABS: POTASSIUM 3.3 MMOL/L (3.6-5.0)
[2021-09-13 05:51] LABS: CALCIUM 8.3 MG/DL (8.5-10.1)
[2021-09-13 05:56] LABS: CREATININE SERUM 0.62 MG/DL (0.60-1.30)
[2021-09-13] MEDS ORDERED: CATHETER FLUSH 10 ML SYR IVP SCH (06:00)
[2021-09-13 07:50] VITALS: BP 113/70
[2021-09-13] MEDS ORDERED: NON-FORMULARY MEDICATION 1 EA EA (Divalproex Sodium 500 MG) PO SCH (09:00)
[2021-09-13] MEDS ORDERED: DIVALPROEX 250 MG DELAYED RELEASE (DEPAKOTE) TAB PO SCH ×3 (09:00→09:30)
[2021-09-13] MEDS ORDERED: NON-FORMULARY MEDICATION 1 EA EA (Levothyroxine Sodium 137 MCG) PO SCH (09:00)
[2021-09-13] MEDS ORDERED: toPIRamate 100 MG (TOPAMAX) TAB PO SCH ×2 (09:00→09:15)
[2021-09-13] MEDS ORDERED: ASPIRIN E.C. 81 MG (ECOTRIN) TAB PO SCH (09:00)
[2021-09-13] MEDS ORDERED: PROPRANOLOL ER 60 MG CAP (INDERAL LA) PO SCH (09:00)
[2021-09-13] MEDS ORDERED: NON-FORMULARY MEDICATION 1 EA EA (Topiramate 100 MG) PO SCH (09:00)
[2021-09-13] MEDS ORDERED: NON-FORMULARY MEDICATION 1 EA EA (Prazosin HCl 2 MG) PO SCH ×2 (09:00→21:00)
[2021-09-13] MEDS ORDERED: LEVOTHYROXINE 112 MCG (LEVOTHROID) TAB PO SCH (09:15)
[2021-09-13] MEDS ORDERED: LEVOTHYROXINE 25 MCG (LEVOTHROID) TAB PO SCH (09:15)
[2021-09-13] MEDS ORDERED: KCL 20 MEQ TAB (K-DUR) PO NR (09:15)
[2021-09-13 12:00] VITALS: BP 107/53
--- NOTE | 2021-09-13 18:49 | Discharge Summary ---
Discharge Summary Hospital Course Problems/Dx: (1) Stroke-like symptoms Status: Acute (2) History of traumatic brain injury Status: Acute Hospital Course Date of Admission: Sep 13, 2021 at 00:25 Admission Diagnosis : Stroke like symptoms Family Physician/Provider: Sho Ta MD Date of Discharge: 09/13/21 Discharge Diagnosis: Stroke like symptoms Hospital Course: Lonnie Bui is a 46 year old male with history of TBI who was admitted with stroke like symptoms. He reports that he came in because his wanted him to. He had facial droop and aphasia which are now resolved. His case was discussed with Neurology and they recommended considering outpatient MRI if his symptoms resolved. He reports occasionally having these symptoms especially when dehydrated. He had been working outside yesterday. He has no residual deficits upon my examination. He should follow up with his PCP Dr. Ta within a week. They should discuss further imaging with MRI if deemed appropriate. He was discharged home in stable condition. Labs and Pending Lab Test: Laboratory Tests 09/12/21 22:15: Glucometer 86 09/12/21 22:17: White Blood Count 7.9, Red Blood Count 5.05, Hemoglobin 16.0, Hematocrit 48, Mean Corpuscular Volume 96, Mean Corpuscular Hemoglobin 32, Mean Corpuscular H emoglobin Concent 33, Red Cell Distribution Width 15.2H, Platelet Count 133, Mean Platelet Volume 12.6H, Immature Granulocyte % (Auto) 0, Neutrophils (%) (Auto) 55, Lymphocytes (%) (Auto) 34, Monocytes (%) (Auto) 9, Eosinophils (%) (Auto) 2, Basophils (%) (Auto) 1, Neutrophils # (Auto) 4.3, Lymphocytes # (Auto) 2.7, Monocytes # (Auto) 0.7, Eosinophils # (Auto) 0.2, Basophils # (Auto) 0.1, Immature Granulocyte # (Auto) 0.0, Sodium Level 140, Potassium Level 3.7, Chloride Level 110H, Carbon Dioxide Level 19L, Anion Gap 11, Blood Urea Nitrogen 11, Creatinine 0.72, Estimat Glomerular Filtration Rate 113, BUN/Creatinine Ratio 15, Glucose Level 89, Calcium Level 9.0, Corrected Calcium 9.1, Total Bilirubin 0.5, Aspartate Amino Transf (AST/SGOT) 38H, Alanine Aminotransferase (ALT/SGPT) 44, Alkaline Phosphatase 37L, Troponin I < 0.028, Total Protein 6.8, Albumin 3.9 09/13/21 05:33: Glucometer 83, White Blood Count 6.1, Red Blood Count 4.80, Hemoglobin 15.1, Hematocrit 46, Mean Corpuscular Volume 96, Mean Corpuscular Hemoglobin 32, Mean Corpuscular Hemoglobin Concent 33, Red Cell Distribution Width 15.2H, Platelet Count 110L, Mean Platelet Volume 12.8H, Immature Granulocyte % (Auto) 0, Sammie trophils (%) (Auto) 48, Lymphocytes (%) (Auto) 41, Monocytes (%) (Auto) 8, Eosinophils (%) (Auto) 2, Basophils (%) (Auto) 0, Neutrophils # (Auto) 2.9, Lymphocytes # (Auto) 2.5, Monocytes # (Auto) 0.5, Eosinophils # (Auto) 0.1, Basophils # (Auto) 0.0, Immature Granulocyte # (Auto) 0.0, Sodium Level 140, Potassium Level 3.3L, Chloride Level 111H, Carbon Dioxide Level 19L, Anion Gap 10, Blood Urea Nitrogen 10, Creatinine 0.62, Estimat Glomerular Filtration Rate 118, BUN/Creatinine Ratio 16, Glucose Level 83, Calcium Level 8.3L 09/13/21 12:11: Glucometer 83 Home Meds Active Ondansetron Odt (Ondansetron) 4 Mg Tab.rapdis 4 Mg SL Q4H PRN Protonix (Pantoprazole Sodium) 40 Mg Tablet.dr 40 Mg PO DAILY Naprosyn (Naproxen) 500 Mg Tablet 500 Mg PO BID Reported Aripiprazole 15 Mg Tablet 15 Mg PO DAILY Prazosin HCl 1 Mg Capsule 2 Mg PO HS take 2 (1mg) tab Prazosin HCl 2 Mg Capsule 2 Mg PO DAILY Men's Multivitamin Tablet (Multivit-Min/Folic/Vit K/Lycop) 1 Each Tablet 1 Each PO DAILY Topiramate 50 Mg Tablet 100 Mg PO DAILY take 2 (50mg) tabs Topiramate 50 Mg Tablet 50 Mg PO HS Atorvastatin Calcium 10 Mg Tablet 10 Mg PO HS Vitamin D-3 (Cholecalciferol (Vitamin D3)) 2,000 Unit Tablet 2,000 Unit PO DAILY Levothyroxine Sodium 137 Mcg Tablet 137 Mcg PO DAILY Divalproex Sodium 500 Mg Tablet.dr 500 Mg PO BID Escitalopram Oxalate 20 Mg Tablet 20 Mg PO HS Propranolol HCl ER (Propranolol HCl) 60 Mg Cap.sa.24h 60 Mg PO DAILY Assessment/Pt Instructions See instructions Discharge Planning: <30 minutes discharge planning Discharge Instructions Discharge Diet: No Restrictions Activity as Tolerated: Yes Discharge Physical Examination Vital Signs Vital Signs Date Time Temp Pulse Resp B/P (MAP) Pulse Ox O2 Delivery O2 Flow Rate FiO2 09/13/21 12:50 52 09/13/21 12:00 36.0 16 107/53 (71) 97 Room Air General Appearance: No Apparent Distress, Obese HEENT: PERRL/EOMI, Pharynx Normal Respiratory: Lungs Clear, Normal Breath Sounds, No Respiratory Distress Cardiovascular: Regular Rate, Rhythm, No Edema, No Murmur Gastrointestinal: Normal Bowel Sounds, Non Tender, Soft Extremity: Normal Inspection, No Pedal Edema Skin: Normal Color, Warm/Dry Neurologic/Psychiatric: Alert, Oriented x3, No Motor/Sensory Deficits, Normal Mood/Affect Allergies: Coded Allergies: NSAIDS (Non-Steroidal Anti-Inflamma (Verified Adverse Reaction, Mild, GI upset, 07/27/21) Instructed to avoid NSAIDS due to mini gastric bypass Copy Copies To 1: SHO TA MD Discharge Summary Date of Admission Sep 13, 2021 at 00:25 Date of Discharge Sep 13, 2021 at 13:40 Discharge Date: Sep 13, 2021 Discharge Time: 13:40 Admission Diagnosis Stroke like symptoms Discharge Diagnosis (1) Stroke-like symptoms Status: Acute (2) History of traumatic brain injury Status: Acute Clinical Quality Measures Stroke: Date of last known well: Sep 12, 2021 Time of last known well: 20:30 Symptoms onset unknown: No SHARMIN SANTAMARIA MD Sep 13, 2021 18:47
[2021-09-13] MEDS ORDERED: NON-FORMULARY MEDICATION 1 EA EA (Escitalopram Oxalate 20 MG) PO SCH (21:00)
[2021-09-13] MEDS ORDERED: AtorvaSTATin TABLET 10 MG TABLET PO SCH (21:00)
[2021-09-13] MEDS ORDERED: NON-FORMULARY MEDICATION 1 EA EA (Topiramate 50 MG) PO SCH (21:00)
[2021-09-13] MEDS ORDERED: TERAZOSIN 1 MG CAP (HYTRIN) PO SCH (21:00)
[2021-09-13] MEDS ORDERED: toPIRamate 25 MG (TOPAMAX) TAB PO SCH (21:00)
[2021-09-14] MEDS ORDERED: TERAZOSIN 1 MG CAP (HYTRIN) PO SCH (09:30)
== END 2021-09-13 13:40 | disposition home or self-care (01) ==
LOC: EDUNIT# 22:07 → ER 22:10 → 4TH 22:11 → UNDOADMIN 09-13 00:25 → EDLOC 09-13 00:25 → UNDODISIN 09-13 13:40
PROVIDERS: ADMIT Internal Medicine; ATTEND Internal Medicine
DX: R47.01 Aphasia (principal); R29.810 Facial weakness; S06.9X0S Unspecified intracranial injury without loss of consciousness, sequela; F01.50 Vascular dementia, unspecified severity, without behavioral disturbance, psychotic disturbance, mood disturbance, and anxiety; E78.00 Pure hypercholesterolemia, unspecified; I10 Essential (primary) hypertension; R29.700 NIHSS score 0; Z88.8 Allergy status to other drugs, medicaments and biological substances
CPT/HCPCS: 36415; 70450; 71045; 80048; 80053; 82947; 84484; 85025; 93005; G0378

== ENCOUNTER 2021-11-09 14:33 | Emergency (ER) | payer MEDICARE, OTHER ==
[~2021-11-09] VITALS: Ht 180 cm; Wt 108.0 kg
[2021-11-09] MEDS ORDERED: ASPIRIN 81 MG CHEW (CHILDREN'S ASA) PO ONE (14:45)
--- NOTE | 2021-11-09 14:52 | ED Chest Pain ---
General Chief Complaint: Chest Pain Stated Complaint: CP,BLURRED VISION,COUGH,CONGESTION History of Present Illness Date Seen by Provider: Nov 09, 2021 Time Seen by Provider: 14:37 Initial Comments 46 year old male presents for 1 hour history of chest pressure. It started while he was eating lunch with heartburn, he became warm but no diaphoresis; experienced some blurred vision no dizziness. [place] like an elephant was standing on his chest. Vision is back to normal. Chest pain is resolving, rates 2/10. Is not on aspirin or other anti-coagulants. Sees Dr. Mullins for cardiology. Heart cath in 2020, no blockage mild CAD. Denies N/V or cough. History of head injury > 10 years ago. Patient concerned symptoms could be anxiety/panic attack. Timing/Duration: 1 hour Severity/Quality: mild Location: substernal Radiation: no radiation Prior CP/Workup: cardiac cath, echocardiography ASA po PRINTING ENGINEER: No NTG SL PRINTING ENGINEER: No Associated Symptoms: denies symptoms; No heartburn, No nausea/vomiting, No shortness of breath, No syncope, No weakness Allergies and Home Medications Allergies Coded Allergies: NSAIDS (Non-Steroidal Anti-Inflamma (Verified Adverse Reaction, Mild, GI upset, 07/27/21) Instructed to avoid NSAIDS due to mini gastric bypass Patient Home Medication List Home Medication List Reviewed: Yes Aripiprazole (Aripiprazole) 15 Mg Tablet, 15 MG PO DAILY, (Reported) Entered as Reported by: VITO MEDRANO on 04/12/19 1137 Atorvastatin Calcium (Atorvastatin Calcium) 10 Mg Tablet, 10 MG PO HS, (Reported) Entered as Reported by: VITO MEDRANO on 04/12/19 1133 Cholecalciferol (Vitamin D3) (Vitamin D-3) 2,000 Unit Tablet, 2,000 UNIT PO DAILY, (Reported) Entered as Reported by: VITO MEDRANO on 04/12/19 1133 Divalproex Sodium (Divalproex Sodium) 500 Mg Christen.dr 500 MG PO BID, (Reported) Entered as Reported by: LV GORDILLO on 03/23/161942 Escitalopram Oxalate (Escitalopram Oxalate) 20 Mg Tablet, 20 MG PO HS, (Reported) Entered as Reported by: LV GORDILLO on 03/23/161942 Levothyroxine Sodium (Levothyroxine Sodium) 137 Mcg Tablet, 137 MCG PO DAILY, (Reported) Entered as Reported by: VITO MEDRANO on 04/12/19 113 Multivit-Min/Folic/Vit K/Lycop (Men's Multivitamin Tablet) 1 Each Tablet, 1 EACH PO DAILY, (Reported) Entered as Reported by: VITO MEDRANO on 04/12/19 113 Naproxen (Naprosyn) 500 Mg Tablet, 500 MG PO BID Prescribed by: FELICIA AYOUB on 04/22/21 233 Ondansetron (Ondansetron Odt) 4 Mg Tab.rapdis, 4 MG SL Q4H PRN for NAUSEA/VOMITING Prescribed by: DESHAWN HOLLY on 07/27/212306 Pantoprazole Sodium (Protonix) 40 Mg Tablet.dr, 40 MG PO DAILY Prescribed by: DESHAWN HOLLY on 07/27/212306 Prazosin HCl (Prazosin HCl) 2 Mg Capsule, 2 MG PO DAILY, (Reported) Entered as Reported by: VITO MEDRANO on 04/12/191136 Prazosin HCl (Prazosin HCl) 1 Mg Capsule, 2 MG PO HS, (Reported) Entered as Reported by: VITO MEDRANO on 04/12/19 113 Propranolol HCl (Propranolol HCl ER) 60 Mg Cap.sa.24h, 60 MG PO DAILY, (Reported) Entered as Reported by: LV GORDILLO on 03/23/161942 Topiramate (Topiramate) 50 Mg Tablet, 50 MG PO HS, (Reported) Entered as Reported by: VITO MEDRANO on 04/12/19 113 Topiramate (Topiramate) 50 Mg Tablet, 100 MG PO DAILY, (Reported) Entered as Reported by: VITO MEDRANO on 04/12/19 113 Review of Systems Review of Systems Constitutional: no symptoms reported, see HPI Respiratory: No Symptoms Reported, See HPI; Denies Cough Cardiovascular: See HPI, Chest Pain Gastrointestinal: No Symptoms Reported, See HPI Genitourinary: No Symptoms Reported, See HPI Musculoskeletal: no symptoms reported, see HPI Skin: no symptoms reported, see HPI All Other Systems Reviewed Negative Unless Noted: Yes Past Nxnuagu-Eisthf-Ylvvtm Hx Immunizations Up To Date Tetanus Booster (TDap): Less than 5yrs First/Initial COVID19 Vaccinat: 2020 Second COVID19 Vaccination Chirag: 2020 Third COVID19 Vaccination Date: NO Seasonal Allergies Seasonal Allergies: No Past Medical History Surgery/Hospitalization HX: HX TB GASTRIC BYPASS, SPINAL STIMULATOR IN BACK Surgeries: Yes (ROTATOR CUFF REPAIR RT SHOULDER/LT TORN LIGAMENT REPAIR, NECK, BACK ) Orthopedic Respiratory: Yes (SLEEP APNEA, USES C-PAP) Pneumonia, Chronic Bronchitis, Sleep Apnea Currently Using CPAP: Yes Currently Using BIPAP: No Cardiac: Yes High Cholesterol, Hypertension Neurological: Yes (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;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) Headaches /Migraines, Seizure Disorder, Traumatic Brain Injury Reproductive Disorders: No Sexually Transmitted Disease: No HIV/AIDS: No Genitourinary: No Gastrointestinal: Yes Gastroesophageal Reflux, Polyps Musculoskeletal: Yes (HERNIATED DISC) Arthritis, Fractures, Gout Endocrine: Yes Hypothyroidsim, Diabetes, Non-Insulin dep HEENT: No Loss of Vision: Denies Hearing Impairment: Denies Cancer: No Psychosocial: Yes Anxiety Integumentary: No Blood Disorders: No Adverse Reaction/Blood Tranf: No (N/A) Family Medical History Reviewed Nursing Family Hx No Pertinent Family Hx PAST SURGICAL HISTORY: -SHOULDER SURGERY X 2 -CERVICAL SPINE SURGERY WITH HARDWARE -BACK SURGERY X 3 -SPINAL NERVE STIMULATOR -BICEPS SURGERY -TESTICULAR SURGERY -COLONOSCOPIES/POLYPECTOMY Physical Exam Vital Signs Vital Signs - First Documented 11/09/21 14:37 Temp 36.3 Pulse 76 Resp 16 B/P (MAP) 131/80 (97) Pulse Ox 95 O2 Delivery Room Air Capillary Refill : Height, Weight, BMI Height: 5'11.00" Weight: 285lbs. 0oz. 129.320547gv; 36.39 BMI Method:Actual General Appearance: No Apparent Distress, WD/WN HEENT: PERRL/EOMI, TMs Normal, Normal ENT Inspection, Pharynx Normal Neck: Full Range of Motion, Normal Inspection, Non Tender, Supple Respiratory: Chest Non Tender, Lungs Clear, Normal Breath Sounds Cardiovascular: Regular Rate, Rhythm, No Edema, No Murmur, Normal Peripheral Pulses Gastrointestinal: Normal Bowel Sounds, Non Tender, Soft Neurologic/Psychiatric: Alert, Oriented x3, No Motor/Sensory Deficits, Normal Mood/Affect Skin: Normal Color, Warm/Dry Progress/Results/Core Measures Results/Orders Lab Results Laboratory Tests Test 8/14/22 14:58 Range/Units White Blood Count 6.5 4.3-11.0 10^3/uL Red Blood Count 5.14 4.30-5.52 10^6/uL Hemoglobin 16.8 13.3-17.7 g/dL Hematocrit 50 40-54 % Mean Corpuscular Volume 97 80-99 fL Mean Corpuscular Hemoglobin 33 25-34 pg Mean Corpuscular Hemoglobin Concent 34 32-36 g/dL Red Cell Distribution Width 16.0 H 10.0-14.5 % Platelet Count 135 130-400 10^3/uL Mean Platelet Volume 12.0 9.0-12.2 fL Immature Granulocyte % (Auto) 1 % Neutrophils (%) (Auto) 62 42-75 % Lymphocytes (%) (Auto) 23 12-44 % Monocytes (%) (Auto) 12 0-12 % Eosinophils (%) (Auto) 3 0-10 % Basophils (%) (Auto) 1 0-10 % Neutrophils # (Auto) 4.0 1.8-7.8 10^3/uL Lymphocytes # (Auto) 1.5 1.0-4.0 10^3/uL Monocytes # (Auto) 0.8 0.0-1.0 10^3/uL Eosinophils # (Auto) 0.2 0.0-0.3 10^3/uL Basophils # (Auto) 0.0 0.0-0.1 10^3/uL Immature Granulocyte # (Auto) 0.0 0.0-0.1 10^3/uL Prothrombin Time 14.9 H 12.2-14.7 SEC INR Comment 1.1 0.8-1.4 Activated Partial Thromboplast Time 28 24-35 SEC Sodium Level 141 135-145 MMOL/L Potassium Level 3.6 3.6-5.0 MMOL/L Chloride Level 111 H 98-107 MMOL/L Carbon Dioxide Level 20 L 21-32 MMOL/L Anion Gap 10 5-14 MMOL/L Blood Urea Nitrogen 6 L 7-18 MG/DL Creatinine 0.79 0.60-1.30 MG/DL Estimat Glomerular Filtration Rate 110 BUN/Creatinine Ratio 8 Glucose Level 72 70-105 MG/DL Calcium Level 8.9 8.5-10.1 MG/DL Corrected Calcium 9.1 8.5-10.1 MG/DL Magnesium Level 1.8 1.6-2.4 MG/DL Total Bilirubin 0.5 0.1-1.0 MG/DL Aspartate Amino Transf (AST/SGOT) 32 5-34 U/L Alanine Aminotransferase (ALT/SGPT) 35 0-55 U/L Alkaline Phosphatase 49 40-136 U/L Myoglobin 34.2 10.0-92.0 NG/ML Troponin I < 0.028 <0.028 NG/ML Total Protein 6.5 6.4-8.2 GM/DL Albumin 3.7 3.2-4.5 GM/DL My Orders Orders - DAYANAADELIA Cbc With Automated Diff (11/09/21 14:37) Magnesium (11/09/21 14:37) Chest 1 View, Ap/Pa Only (11/09/21 14:37) Ekg Tracing (11/09/21 14:37) Comprehensive Metabolic Panel (11/09/21 14:37) Myoglobin Serum (11/09/21 14:37) Protime With Inr (11/09/21 14:37) Partial Thromboplastin Time (11/09/21 14:37) O2 (11/09/21 14:37) Monitor-Rhythm Ecg Trace Only (11/09/21 14:37) Ed Iv/Invasive Line Start (11/09/21 14:37) Troponin I Ryan (11/09/21 14:37) Aspirin Chewable Tablet (Baby Aspirin Ch (11/09/21 14:45) Medications Given in ED Current Medications Medications Dose Ordered Sig/Asaf Route Start Time Stop Time Status Last Admin Dose Admin Aspirin 324 mg ONCE ONCE PO 11/09/21 14:45 11/09/21 14:46 DC 11/09/21 15:03 324 MG Vital Signs/I&O 11/09/21 14:37 Temp 36.3 Pulse 76 Resp 16 B/P (MAP) 131/80 (97) Pulse Ox 95 O2 Delivery Room Air Progress Progress Note : Time: 14:37 Progress Note patient seen and evaluated, no acute findings on EKG. Will get labs and monitor. Aspirin 324 mg orally. 1525 patient continues to have no chest pain. Awaiting all labs no request at this time 1600 troponin negative, spoke to Dr. Mullins, recommended discharge with follow- up. Discharge instructions and return precautions reviewed. Initial ECG Impression Date: Nov 09, 2021 Initial ECG Impression Time: 14:44 Initial ECG Rate: 79 Initial ECG Rhythm: Normal Sinus Initial ECG Intervals: Normal Initial ECG Intervals OR 131, QRS D 85, QT 348, QTc 383. [place] P 31, R 26, T 3 Initial ECG Impression: Normal Initial ECG Comparisson: Unchanged Diagnostic Imaging Diagonstic Imaging: Xray Plain Films/CT/US/NM/MRI: chest Comments NAME: MIRIAN ANTONY [facility] REC#: [id number] PT STATUS: REG ER : 1975 PHYSICIAN: ADELIA ANNE ADMIT DATE: 11/09/21/ER Signed Date of Exam:11/09/21 CHEST 1 VIEW, AP/PA ONLY INDICATION: Chest pain. COMPARISON: 09/12/2021. FINDINGS: The lungs appear clear without focal airspace opacities or consolidation. There are no findings of an effusion. There is no evidence of a pneumothorax. Heart size and mediastinal contours appear appropriate. Pulmonary vascularity appears within normal limits. There is no acute or suspicious osseous abnormality demonstrated. A thoracic spinal stimulator device is present. IMPRESSION: No radiographic evidence of an acute cardiopulmonary process. Dictated by: Dictated on workstation # [id number] Dict: 11/09/218 Trans: 11/09/211457 [facility] [id number] Interpreted by: AL ELENA MD Electronically signed by: AL ELENA MD 11/09/21 1458 Reviewed: Reviewed by Me Departure Impression Primary Impression: Atypical chest pain Disposition: 01 HOME, SELF-CARE Condition: Improved Departure-Patient Inst. Decision time for Depature: 15:50 Referrals: SHO BLOOD MD (PCP/Family) Primary Care Physician Patient Instructions: Chest Pain That Is Not Caused by the Heart (DC) Add. Discharge Instructions: Based on your work up and previous cardiac tests, it does not appear your symptoms are being caused by your heart. Follow up with Dr. Mullins, call Wednesday for appt. Take Aspirin 81 mg, one daily. Follow up with your Primary Care provider. Return to the Emergency Dept for chest pain, vision changes, weakness, or other symptoms. All discharge instructions reviewed with patient and/or family. Voiced understanding. Copy Copies To 1: TONY MULLINS MD, AMY ARNP Nov 09, 2021 14:52
--- NOTE | 2021-11-09 14:59 | Diagnostic Imaging Report ---
INDICATION: Chest pain. COMPARISON: 09/12/2021. FINDINGS: The lungs appear clear without focal airspace opacities or consolidation. There are no findings of an effusion. There is no evidence of a pneumothorax. Heart size and mediastinal contours appear appropriate. Pulmonary vascularity appears within normal limits. There is no acute or suspicious osseous abnormality demonstrated. A thoracic spinal stimulator device is present. IMPRESSION: No radiographic evidence of an acute cardiopulmonary process. Dictated by: Dictated on workstation # [id number]
[2021-11-09 15:05] LABS: BASOPHILS % (AUTO) 1 % (0-10); EOSINOPHILS # (AUTO) 0.2 10^3/uL (0.0-0.3); EOSINOPHILS % (AUTO) 3 % (0-10); HEMATOCRIT 50 % (40-54); HEMOGLOBIN 16.8 g/dL (13.3-17.7); LYMPHOCYTES # (AUTO) 1.5 10^3/uL (1.0-4.0); LYMPHOCYTES % (AUTO) 23 % (12-44); MEAN CORPUSCULAR HEMOGLOBIN 33 pg (25-34); MEAN CORPUSCULAR HGB CONC 34 g/dL (32-36); MEAN CORPUSCULAR VOLUME 97 fL (80-99); MONOCYTES # (AUTO) 0.8 10^3/uL (0.0-1.0); MONOCYTES % (AUTO) 12 % (0-12); NEUTROPHILS % (AUTO) 62 % (42-75); PLATELET COUNT 135 10^3/uL (130-400); WHITE BLOOD COUNT 6.5 10^3/uL (4.3-11.0)
[2021-11-09 15:17] LABS: ALBUMIN 3.7 GM/DL (3.2-4.5); POTASSIUM 3.6 MMOL/L (3.6-5.0)
[2021-11-09 15:18] LABS: CALCIUM 8.9 MG/DL (8.5-10.1)
[2021-11-09 15:19] LABS: TOTAL PROTEIN 6.5 GM/DL (6.4-8.2)
[2021-11-09 15:21] LABS: BILIRUBIN,TOTAL 0.5 MG/DL (0.1-1.0)
[2021-11-09 15:23] LABS: CREATININE SERUM 0.79 MG/DL (0.60-1.30); INR 1.1 (0.8-1.4); PROTHROMBIN TIME PATIENT 14.9 SEC (12.2-14.7)
[2021-11-09 15:26] LABS: MAGNESIUM 1.8 MG/DL (1.6-2.4)
[2021-11-09 16:15] VITALS: BP 115/76
== END 2021-11-09 16:15 | disposition home or self-care (01) ==
LOC: EDUNIT# 14:33 → ER 14:35
DX: R07.89 Other chest pain (principal); G47.30 Sleep apnea, unspecified; Z98.61 Coronary angioplasty status; Z99.89 Dependence on other enabling machines and devices
CPT/HCPCS: 36415; 71045; 80053; 83735; 83874; 84484; 85025; 85610; 85730; 93005; 93041

== ENCOUNTER 2021-11-26 05:31 | Outpatient (CLI) | payer MEDICARE, OTHER ==
[~2021-11-26] VITALS: Ht 154.9 cm; Wt 110.2 kg
== END 2021-11-26 09:35 | disposition home or self-care (01) ==
LOC: PREOP 05:31
PROVIDERS: ATTEND Surgery
DX: Z01.818 Encounter for other preprocedural examination (principal)

== ENCOUNTER 2021-11-30 20:25 | Emergency (ER) | payer MEDICARE, OTHER ==
[~2021-11-30] VITALS: Ht 180.3 cm; Wt 106.6 kg
[2021-11-30] MEDS ORDERED: LACTATED RINGERS 1,000 ML IV ONE (20:45)
[2021-11-30] MEDS ORDERED: PANTOPRAZOLE 40 MG (PROTONIX) VIAL IV ONE (20:45)
[2021-11-30] MEDS ORDERED: ONDANSETRON 4 MG/2 ML (SDV) Z0FRAN IVP ONE (20:45)
[2021-11-30 20:53] LABS: BASOPHILS % (AUTO) 0 % (0-10); EOSINOPHILS # (AUTO) 0.1 10^3/uL (0.0-0.3); EOSINOPHILS % (AUTO) 1 % (0-10); HEMATOCRIT 49 % (40-54); HEMOGLOBIN 16.4 g/dL (13.3-17.7); LYMPHOCYTES # (AUTO) 1.6 10^3/uL (1.0-4.0); LYMPHOCYTES % (AUTO) 14 % (12-44); MEAN CORPUSCULAR HEMOGLOBIN 32 pg (25-34); MEAN CORPUSCULAR HGB CONC 34 g/dL (32-36); MEAN CORPUSCULAR VOLUME 96 fL (80-99); MEAN PLATELET VOLUME 12.5 fL (9.0-12.2); MONOCYTES % (AUTO) 9 % (0-12); NEUTROPHILS # (AUTO) 8.2 10^3/uL (1.8-7.8); NEUTROPHILS % (AUTO) 75 % (42-75); PLATELET COUNT 136 10^3/uL (130-400); WHITE BLOOD COUNT 10.9 10^3/uL (4.3-11.0)
[2021-11-30 20:55] LABS: BILIRUBIN,URINE NEGATIVE (NEGATIVE); CLARITY,URINE SL CLOUDY; COLOR,URINE YELLOW; GLUCOSE, URINE (UA) NEGATIVE (NEGATIVE); KETONES,URINE 1+ (NEGATIVE); LEUKOCYTE ESTERASE ,URINE NEGATIVE (NEGATIVE); NITRITE,URINE NEGATIVE (NEGATIVE); PROTEIN,URINE NEGATIVE (NEGATIVE)
[2021-11-30 21:09] LABS: BACTERIA,URINE FEW /HPF; SQUAMOUS EPITHELIAL CELL,UR 0-2 /HPF; WBC,URINE RARE /HPF
[2021-11-30 21:11] LABS: AMPHETAMINE SCREEN, URINE NEGATIVE (NEGATIVE); BARBITURATE SCREEN URINE NEGATIVE (NEGATIVE); BENZODIAZEPINES SCREEN URINE NEGATIVE (NEGATIVE); CANNABINOID SCREEN, URINE NEGATIVE (NEGATIVE); COCAINE SCREEN URINE NEGATIVE (NEGATIVE); METHADONE STAT NEGATIVE (NEGATIVE); OPIATE SCREEN URINE NEGATIVE (NEGATIVE); OXYCODONE STAT NEGATIVE (NEGATIVE); PROPOXYPHENE STAT NEGATIVE (NEGATIVE); TRICYCLIC ANTIDEPRESSANTS SCRE NEGATIVE (NEGATIVE)
[2021-11-30 21:14] LABS: ALANINE AMINOTRANSFERASE 34 U/L (0-55); ALBUMIN 3.7 GM/DL (3.2-4.5); ALKALINE PHOSPHATASE 49 U/L (40-136); AMYLASE 50 U/L (25-125); BILIRUBIN,TOTAL 0.5 MG/DL (0.1-1.0); BUN/CREATININE RATIO 8; CALCIUM 8.9 MG/DL (8.5-10.1); CARBON DIOXIDE 21 MMOL/L (21-32); CHLORIDE 108 MMOL/L (98-107); CREATININE SERUM 1.06 MG/DL (0.60-1.30); GFR ESTIMATED 87; GLUCOSE 89 MG/DL (70-105); LIPASE 19 U/L (8-78); POTASSIUM 3.6 MMOL/L (3.6-5.0); SODIUM 141 MMOL/L (135-145); TOTAL PROTEIN 6.7 GM/DL (6.4-8.2)
--- NOTE | 2021-11-30 21:49 | Diagnostic Imaging Report ---
Clinical indication: Patient with abdominal pain and flank pain. Kidney stone suspected. Exam: KUB x-ray. Comparison: CT scan of the abdomen and pelvis without contrast dated 11/30/2021. Findings and impression: 1: The roughly 6 mm stone involving the proximal left ureter, seen on the prior CT scan, is not well delineated on this exam and may be obscured by abdominal structures. Previously seen nonobstructive stone involving the left kidney also was not localized on this exam. 2: There is a nonobstructed bowel gas pattern. There is no evidence of abdominal free air. Postop changes to the stomach are again seen. 3: There are degenerative spurs involving the spine. Neurostimulator electrode device noted. Dictated by: Dictated on workstation # [id number]
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
[2021-11-30] MEDS ORDERED: RX-ONDANSETRON 4 MG ODT (ZOFRAN) PPK #4 PO STA (22:08)
[2021-11-30] MEDS ORDERED: HYDR-34 PO (22:11)
[2021-11-30] MEDS ORDERED: ONDA8TAB13 PO (22:11)
[2021-11-30] MEDS ORDERED: TMSL.4C PO (22:11)
[2021-11-30] MEDS ORDERED: TAMSULOSIN 0.4 MG (FLOMAX) CAP PO SCH (22:15)
[2021-11-30 22:35] VITALS: BP 130/86
== END 2021-11-30 22:36 | disposition home or self-care (01) ==
LOC: EDUNIT# 20:25 → ER 20:27
DX: N13.2 Hydronephrosis with renal and ureteral calculous obstruction (principal); G47.30 Sleep apnea, unspecified; F17.290 Nicotine dependence, other tobacco product, uncomplicated; Z99.89 Dependence on other enabling machines and devices; Z98.84 Bariatric surgery status
CPT/HCPCS: 74018; 74176; 80053; 80164; 80306; 81000; 82150; 83690; 85025; 87088; 93041; 99284; G0480; 36415; 80320

== ENCOUNTER 2021-12-15 22:12 | Emergency (ER) | payer MEDICARE, OTHER ==
[~2021-12-15] VITALS: Ht 175 cm; Wt 104.0 kg
[~2021-12-15 22:12] MED LIST changes: +HYDR-34 PO; +ONDA8TAB13 PO; +TMSL.4C PO
[2021-12-15] MEDS ORDERED: fentaNYL INJ 100 MCG/2 ML AMP IVP STA (22:58)
[2021-12-15] MEDS ORDERED: ONDANSETRON 4 MG/2 ML (SDV) Z0FRAN IVP ONE (23:00)
[2021-12-15] MEDS ORDERED: LACTATED RINGERS 1,000 ML IV ONE (23:00)
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
[2021-12-15 23:05] LABS: BILIRUBIN,URINE NEGATIVE (NEGATIVE); CLARITY,URINE SL CLOUDY; COLOR,URINE YELLOW; GLUCOSE, URINE (UA) NEGATIVE (NEGATIVE); KETONES,URINE NEGATIVE (NEGATIVE); LEUKOCYTE ESTERASE ,URINE NEGATIVE (NEGATIVE); NITRITE,URINE NEGATIVE (NEGATIVE); PROTEIN,URINE 2+ (NEGATIVE)
[2021-12-15 23:07] LABS: HEMOGLOBIN 15.9 g/dL (13.3-17.7); LYMPHOCYTES % (AUTO) 41 % (12-44)
[2021-12-15 23:09] LABS: BASOPHILS % (AUTO) 1 % (0-10); EOSINOPHILS # (AUTO) 0.2 10^3/uL (0.0-0.3); EOSINOPHILS % (AUTO) 2 % (0-10); HEMATOCRIT 47 % (40-54); LYMPHOCYTES # (AUTO) 3.2 10^3/uL (1.0-4.0); MEAN CORPUSCULAR HEMOGLOBIN 33 pg (25-34); MEAN CORPUSCULAR HGB CONC 34 g/dL (32-36); MEAN CORPUSCULAR VOLUME 98 fL (80-99); MEAN PLATELET VOLUME 12.7 fL (9.0-12.2); MONOCYTES # (AUTO) 0.6 10^3/uL (0.0-1.0); MONOCYTES % (AUTO) 8 % (0-12); NEUTROPHILS # (AUTO) 3.7 10^3/uL (1.8-7.8); NEUTROPHILS % (AUTO) 47 % (42-75); PLATELET COUNT 124 10^3/uL (130-400); WHITE BLOOD COUNT 7.8 10^3/uL (4.3-11.0)
[2021-12-15 23:11] LABS: BACTERIA,URINE NEGATIVE /HPF
[2021-12-15 23:12] LABS: CALCIUM OXALATE CRYSTALS,UR MODERATE /LPF
[2021-12-15 23:18] LABS: ALBUMIN 3.8 GM/DL (3.2-4.5); POTASSIUM 3.7 MMOL/L (3.6-5.0)
[2021-12-15 23:19] LABS: CALCIUM 8.8 MG/DL (8.5-10.1)
[2021-12-15 23:21] LABS: TOTAL PROTEIN 6.4 GM/DL (6.4-8.2)
[2021-12-15 23:22] LABS: BILIRUBIN,TOTAL 0.5 MG/DL (0.1-1.0)
[2021-12-15 23:24] LABS: CREATININE SERUM 0.77 MG/DL (0.60-1.30)
[2021-12-16] MEDS ORDERED: fentaNYL INJ 100 MCG/2 ML AMP IVP ONE (00:15)
[2021-12-16] MEDS ORDERED: OXYC1TAB87 PO (00:20)
[2021-12-16] MEDS ORDERED: RX-OXYCODONE/APAP 5-325 MG #4 TAB PK PO PRN (00:30)
[2021-12-16] MEDS ORDERED: oxyCODONE/APAP 5/325MG (PERCOCET 5) TABLET PO ONE (00:30)
[2021-12-16 00:47] VITALS: BP 113/73
== END 2021-12-16 00:48 | disposition home or self-care (01) ==
LOC: EDUNIT# 22:12 → ER 22:15
DX: N20.0 Calculus of kidney (principal); E66.01 Morbid (severe) obesity due to excess calories; G47.30 Sleep apnea, unspecified; F17.290 Nicotine dependence, other tobacco product, uncomplicated; Z99.89 Dependence on other enabling machines and devices; Z68.33 Body mass index [BMI] 33.0-33.9, adult
CPT/HCPCS: 36415; 80053; 81000; 82150; 83690; 85025

== ENCOUNTER 2021-12-27 14:43 | Emergency (ER) | payer MEDICARE, OTHER ==
[~2021-12-27] VITALS: Ht 180 cm; Wt 102.0 kg
[~2021-12-27 14:43] MED LIST changes: +OXYC1TAB87 PO
[2021-12-27 14:50] VITALS: BP 131/87
[2021-12-27] MEDS ORDERED: TETANUS,DIPTH,PERTUSS P/F (BOOSTRIX) 0.5 ML VIAL IM ONE (15:00)
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
== END 2021-12-27 15:11 | disposition home or self-care (01) ==
LOC: EDUNIT# 14:43 → ER 14:45
DX: S06.0X0A Concussion without loss of consciousness, initial encounter (principal); S01.81XA Laceration without foreign body of other part of head, initial encounter; G47.30 Sleep apnea, unspecified; G43.909 Migraine, unspecified, not intractable, without status migrainosus; E66.01 Morbid (severe) obesity due to excess calories; F17.290 Nicotine dependence, other tobacco product, uncomplicated; Z68.31 Body mass index [BMI] 31.0-31.9, adult; Z23 Encounter for immunization; Z99.89 Dependence on other enabling machines and devices; Z79.899 Other long term (current) drug therapy; W22.8XXA Striking against or struck by other objects, initial encounter
CPT/HCPCS: 90715; 99281

== ENCOUNTER 2022-02-07 12:05 | Emergency (ER) | payer MEDICARE, OTHER ==
[~2022-02-07] VITALS: Ht 180 cm; Wt 96.6 kg
--- NOTE | 2022-02-07 12:22 | ED Upper Extremity ---
General Chief Complaint: Upper Extremity Stated Complaint: LEFT WRIST INJURY Nursing Triage Note: PT STATES HE HURT HIS LT WRIST YESTERDAY, NOT SURE HOW BUT PAINFUL AND SWOLLEN Source: patient Exam Limitations: no limitations History of Present Illness Date Seen by Provider: Feb 07, 2022 Time Seen by Provider: 12:22 Initial Comments 46 y/o male presents today with c/o left wrist pain. Pt states he was out hunting yesterday and uncertain what exactly he did to the wrist, but woke up today with pain and swelling. 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 Pt denies history of injury or pain in this wrist. He denies weakness, numbness, tingling, warmth, redness. He has not taken anything OTC for pain, states he is not supposed to take oral NSAIDs. Onset: this morning Pain/Injury Location: left wrist Method of Injury: unknown Modifying Factors: Worse With Movement Allergies and Home Medications Allergies Coded Allergies: NSAIDS (Non-Steroidal Anti-Inflamma (Verified Adverse Reaction, Mild, GI upset, 07/27/21) Instructed to avoid NSAIDS due to mini gastric bypass Patient Home Medication List Home Medication List Reviewed: Yes Aripiprazole (Aripiprazole) 15 Mg Tablet, 15 MG PO DAILY, (Reported) Entered as Reported by: VITO MEDRANO on 04/12/19 1137 Atorvastatin Calcium (Atorvastatin Calcium) 10 Mg Tablet, 10 MG PO HS, (Reported) Entered as Reported by: VITO MEDRANO on 04/12/19 1133 Divalproex Sodium (Divalproex Sodium) 500 Mg Tablet.dr, 500 MG PO BID, (Reported) Entered as Reported by: LV GORDILLO on 03/23/161942 Escitalopram Oxalate (Escitalopram Oxalate) 20 Mg Tablet, 20 MG PO HS, (Reported) Entered as Reported by: LV GORDILLO on 03/23/161942 Hydrocodone Bit/Acetaminophen (HYDROcodone/APAP 7.5/325 TAB) 1 Ea Tablet, 1 EA PO Q4-6 PRN for PAIN Prescribed by: LENCHO CEBALLOS on 11/30/21 2211 Levothyroxine Sodium (Levothyroxine Sodium) 137 Mcg Tablet, 137 MCG PO DAILY, (Reported) Entered as Reported by: VITO MEDRANO on 04/12/19 1133 Methylprednisolone (Methylprednisolone Dose Pack) 4 Mg Tab.ds.pk, 4 MG PO UD Prescribed by: Stacy Han on 02/07/22 1310 Multivit-Min/Folic/Vit K/Lycop (Men's Multivitamin Tablet) 1 Each Tablet, 1 EACH PO DAILY, (Reported) Entered as Reported by: VITO MEDRANO on 04/12/19 113 Naproxen (Naprosyn) 500 Mg Tablet, 500 MG PO BID Prescribed by: FELICIA AYOUB on 04/22/21 2333 Ondansetron (Ondansetron Odt) 4 Mg Tab.rapdis, 4 MG SL Q4H PRN for JOSELO SEA/VOMITING Prescribed by: DESHAWN HOLLY on 07/27/21 230 Ondansetron (Ondansetron Odt) 8 Mg Tab.rapdis, 8 MG PO Q6H Prescribed by: LENCHO CEBALLOS on 11/30/212210 Oxycodone HCl/Acetaminophen (Percocet 5-325 mg Tablet) 1 Each Tablet, 1 TAB PO Q4H Prescribed by: LENCHO CEBALLOS on 12/16/21 0020 Pantoprazole Sodium (Protonix) 40 Mg Tablet.dr, 40 MG PO DAILY Prescribed by: DESHAWN HOLLY on 07/27/21 230 Prazosin HCl (Prazosin HCl) 2 Mg Capsule, 2 MG PO DAILY, (Reported) Entered as Reported by: VITO MEDRANO on 04/12/19 113 Propranolol HCl (Propranolol HCl ER) 60 Mg Cap.sa.24h, 60 MG PO DAILY, (Reported) Entered as Reported by: LV GORDILLO on 03/23/161942 Tamsulosin HCl (Flomax) 0.4 Mg Cap, 0.4 MG PO DAILY Prescribed by: LENCHO CEBALLOS on 11/30/212210 Topiramate (Topiramate) 50 Mg Tablet, 100 MG PO DAILY, (Reported) Entered as Reported by: VITO MEDRANO on 04/12/19 113 Review of Systems Constitutional: no symptoms reported Cardiovascular: no symptoms reported Musculoskeletal: No gout; joint pain; No muscle pain, No muscle stiffness, No muscle cramps, No muscle twitching, No muscle weakness Skin: no symptoms reported Past Zjqrmsf-Ojrbeh-Idcnjx Hx Patient Social History Tobacco Use?: No Substance use?: No Alcohol Use?: No Immunizations Up To Date Tetanus Booster (TDap): Unknown First/Initial COVID19 Vaccinat: "Last Year" Second COVID19 Vaccination Chirag: "Last Year" Third COVID19 Vaccination Date: N/A Seasonal Allergies Seasonal Allergies: No Past Medical History Surgery/Hospitalization HX: PMH; SEIZURES AND HEAD INJURY 2008. SURGERY;RT HIP SURGERY 2020, BACK SURGERY, AND NECK FUSION. 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) Headaches /Migraines, Seizure Disorder, Traumatic Brain Injury Reproductive Disorders: No Sexually Transmitted Disease: No HIV/AIDS: No Genitourinary: Yes Kidney Stones Gastrointestinal: Yes (GASTRIC BYPASS 05/2021) Gastroesophageal Reflux, Polyps Musculoskeletal: Yes (CHRONIC NECK/BACK PAIN;S/P MULTIPLE SURGERIES) Degenerate Disk Disease, Arthritis, Back Injury, Chronic Back Pain, Fractures, Gout Endocrine: Yes (HX OF DIABETES-NOT ON MEDICATIONS NOW; MORBID OBESITY) Hypothyroidsim, Diabetes, Non-Insulin dep HEENT: No Loss of Vision: Denies Hearing Impairment: Denies Cancer: No Psychosocial: Yes Anxiety, PTSD, Depression Integumentary: No Blood Disorders: No Adverse Reaction/Blood Tranf: No (N/A) Family Medical History No Pertinent Family Hx SOCIAL HISTORY: -OCCASIONALLY SMOKES CIGARS -OCCASIONAL ETOH -DENIES DRUG USE PAST SURGICAL HISTORY: -SHOULDER SURGERY X 2 -CERVICAL SPINE SURGERY WITH HARDWARE -BACK SURGERY X 3 -SPINAL NERVE STIMULATOR -BICEPS SURGERY -TESTICULAR SURGERY -COLONOSCOPIES/POLYPECTOMY -GASTRIC BYPASS 05/2021 AT [facility] BY DR. MARLOW Physical Exam Vital Signs Vital Signs - First Documented 02/07/22 12:15 Temp 36.9 Pulse 81 Resp 18 B/P (MAP) 130/85 (100) Pulse Ox 100 O2 Delivery Room Air Capillary Refill : Less Than 3 Seconds Height, Weight, BMI Height: 5'11.00" Weight: 285lbs. 0oz. 129.071922ki; 29.00 BMI Method:Actual General Appearance: WD/WN Cardiovascular: normal peripheral pulses, no edema Elbow/Forearm: normal inspection, non-tender, no evidence of injury, normal ROM Wrist: Yes no evidence of injury, Yes normal ROM (increased pain with ulnar and radial deviation); No bone tenderness, No deformity, No ecchymosis; Yes pain, Yes soft tissue tenderness (radial and ulnar aspects) Hand: normal inspection, non-tender Neurologic/Tendon: normal sensation, normal motor functions, normal tendon functions Neurologic/Psychiatric: no motor/sensory deficits, alert, oriented x 3 Skin: normal color, warm/dry Progress/Results/Core Measures Results/Orders My Orders Orders - STACY HAN APRN Wrist, Left, 3 Views Or More (02/07/22 12:22) Ketorolac Injection (Toradol Injection) (02/07/22 12:30) Acetaminophen Tablet/Caplet (Tylenol T (02/07/22 12:30) Medications Given in ED Current Medications Medications Dose Ordered Sig/Asaf Route Start Time Stop Time Status Last Admin Dose Admin Acetaminophen 650 mg ONCE ONCE PO 02/07/22 12:30 02/07/22 12:31 DC 02/07/22 12:35 650 MG Ketorolac Tromethamine 60 mg ONCE ONCE IM 02/07/22 12:30 02/07/22 12:31 DC 02/07/22 12:36 60 MG Vital Signs/I&O 02/07/22 02/07/22 12:15 13:19 Temp 36.9 Pulse 81 66 Resp 18 16 B/P (MAP) 130/85 (100) 112/74 Pulse Ox 100 98 O2 Delivery Room Air Room Air Blood Pressure Mean: 100 Diagnostic Imaging Diagonstic Imaging: Xray Plain Films/CT/US/NM/MRI: other (left wrist) Comments no acute findings Departure Impression Primary Impression: Left wrist tendonitis Disposition: 01 HOME, SELF-CARE Condition: Stable Departure-Patient Inst. Decision time for Depature: 13:07 Referrals: SHO BLOOD MD (PCP/Family) Primary Care Physician Patient Instructions: Tendonitis (DC) Add. Discharge Instructions: Ice as needed. Tylenol 500mg every 4 hours as needed. Avoid repetitive movements of the wrist, wear wrist brace until pain and swelling have resolved. Medrol dose pack as prescribed. Follow up with PCP if no improvement in one week. Follow up with any new/worsening concerns. All discharge instructions reviewed with patient and/or family. Voiced understanding. Scripts Methylprednisolone (Methylprednisolone Dose Pack) 4 Mg Tab.ds.pk 4 MG PO UD for 6 Days, #21 PKG PER DOSE PACK INSTRUCTIONS Prov: SATCY HAN APRN 02/07/22 STACY HAN APRN Feb 07, 2022 12:22
[2022-02-07] MEDS ORDERED: KETOROLAC 60 MG/2 ML VIAL IM ONE (12:30)
[2022-02-07] MEDS ORDERED: ACETAMINOPHEN 325 MG TABLET PO ONE (12:30)
[2022-02-07] MEDS ORDERED: METH4TAB10 PO (13:10)
[2022-02-07 13:19] VITALS: BP 112/74
--- NOTE | 2022-02-07 13:20 | Diagnostic Imaging Report ---
INDICATION: Pain, swelling. COMPARISON: None available. TECHNIQUE: Three radiographs of the left wrist dated 02/07/2022. FINDINGS: No acute fracture or dislocation. No destructive osseous process. Carpal alignment is well-maintained. Scapholunate interval is within normal limits. No suspicious radiopaque foreign body. IMPRESSION: No acute osseous abnormality. Dictated by: Dictated on workstation # [id number]
== END 2022-02-07 13:19 | disposition home or self-care (01) ==
LOC: EDUNIT# 12:05 → ER 12:07
DX: M77.8 Other enthesopathies, not elsewhere classified (principal); G47.30 Sleep apnea, unspecified; Z99.89 Dependence on other enabling machines and devices
CPT/HCPCS: 73110

== ENCOUNTER → 2022-03-24 | Outpatient (CLI) | payer MEDICARE, OTHER ==
[~2022-03-24] VITALS: Ht 180.3 cm; Wt 97.4 kg
[~2022-03-24] MED LIST changes: +METH4TAB10 PO
== END ==
LOC: PREOP 09:29
PROVIDERS: ATTEND Surgery
DX: Z01.818 Encounter for other preprocedural examination (principal)

== ENCOUNTER 2022-03-31 07:29 | Day surgery (SDC) | payer MEDICARE, OTHER ==
[~2022-03-31] VITALS: Ht 180 cm; Wt 97.4 kg
[2022-03-31] MEDS ORDERED: LACTATED RINGERS 1,000 ML IV STA (07:37)
[2022-03-31 07:44] VITALS: BP 102/73
[2022-03-31] MEDS ORDERED: HURRICAINE EXT TUBE (BENZOCAINE) XX PRN (07:45)
--- NOTE | 2022-03-31 08:14 | Progress Note-Pre Operative ---
Pre-Operative Progress Note Date of Available H&P: Mar 09, 2022 Date H&P Reviewed: Mar 31, 2022 Time H&P Reviewed: 08:14 History & Physical: H&P Reviewed, Patient Examed, No changes noted Pre-Operative Diagnosis: atypical chest pain BYRON SHAW DO Mar 31, 2022 08:14
[2022-03-31] MEDS ORDERED: MIDAZOLAM 2 MG/2 ML (VERSED) VIAL ONE (08:48)
[2022-03-31] MEDS ORDERED: proPOfol 200 MG/20 ML (DIPRIVAN) VIAL IV ONE (08:48)
[2022-03-31] MEDS ORDERED: SUCR1TAB36 PO (09:05)
[2022-03-31 09:08] VITALS: BP 86/51
--- NOTE | 2022-03-31 09:08 | Discharge Inst-Simple/Standard ---
Discharge Inst-Standard Discharge Medications New, Converted or Re-Newed RX: Transmitted to Pharmacy Patient Instructions/Follow Up Plan of Care/Instructions/FU: Renetta 2 weeks. Activity as Tolerated: Yes Discharge Diet: Regular Diet BYRON SHAW DO Mar 31, 2022 09:07
[2022-03-31 09:13] VITALS: BP 87/52
[2022-03-31 09:18] VITALS: BP 86/54
[2022-03-31 09:23] VITALS: BP 98/59
[2022-03-31 09:46] VITALS: BP 101/65
--- NOTE | 2022-03-31 16:41 | OPERATIVE REPORT ---
DATE OF SERVICE: 03/31/2022 PREOPERATIVE DIAGNOSIS: Atypical chest pain. POSTOPERATIVE DIAGNOSIS: Gastritis. SURGEON: Byron Jackson DO. ANESTHESIA: Per PROPERTIES SUPERVISOR. PROCEDURE: Esophagogastrojejunoscopy with biopsies. INDICATIONS: The patient is a 46-year-old male with atypical chest pain. He was recommended to have an upper endoscopy for further evaluation. He understood risks and benefits and wishes to proceed. Consent was signed in chart. DESCRIPTION OF PROCEDURE: The patient was taken to endoscopy suite, placed in left lateral recumbent position. Timeout was performed. Scope was inserted in the mouth, down the esophagus, stomach and down both limbs without any abnormality. At the gastric pouch jejunal anastomosis, some inflammation present. Biopsies were obtained. Scope was continuously retracted back to the gastric pouch. A biopsy was obtained. Scope was inserted and retracted multiple times, noting no other pathology. Scope was retracted back into the distal esophagus. No polyps, masses or ulcerations. Biopsy of the GE junction was obtained. Scope was then slowly retracted back until completely removed, noting no other pathology. The patient tolerated the procedure well without complications, taken to recovery room in stable condition. RECOMMENDATIONS: The patient will continue on current medications. We will add Carafate 1 gram 4 times a day. He will follow up in approximately 2 weeks to discuss pathology results and see how his symptoms are doing. Job ID: [id number] DocumentID: [id number] Dictated Date: 03/31/2022 09:07:31 Diamond Grader Date: 03/31/2022 16:40:00 Dictated By: BYRON JACKSON DO MTDD
--- NOTE | 2022-04-07 14:47 | Anesthesia-General Post-Op ---
MAC Significant Intra-Op Events Notes late entry 03/31/22 @0930 Patient Condition Mental Status/LOC: Same as Preop Cardiovascular: Satisfactory Nausea/Vomiting: Absent Respiratory: Satisfactory Pain: Controlled Complications: Absent Post Op Complications Complications None Follow Up Care/Instructions Patient Instructions None needed. Anesthesiology Discharge Order Discharge Order Patient is doing well, no complaints, stable vital signs, no apparent adverse anesthesia problems. No complications reported per nursing. JOHANNA JEFF CRNA Apr 07, 2022 14:47
== END 2022-03-31 09:52 | disposition home or self-care (01) ==
LOC: ENDO 07:29
PROVIDERS: ATTEND Surgery
DX: A04.9 Bacterial intestinal infection, unspecified (principal); G47.33 Obstructive sleep apnea (adult) (pediatric); E66.9 Obesity, unspecified; F17.290 Nicotine dependence, other tobacco product, uncomplicated; Z68.30 Body mass index [BMI] 30.0-30.9, adult

== ENCOUNTER 2022-04-30 19:06 | Emergency (ER) | payer MEDICARE, OTHER ==
[~2022-04-30 19:06] MED LIST changes: +SUCR1TAB36 PO
[2022-04-30] MEDS ORDERED: ASPIRIN 81 MG CHEW (CHILDREN'S ASA) PO ONE (19:15)
[2022-04-30 19:22] LABS: BASOPHILS % (AUTO) 1 % (0-10); EOSINOPHILS # (AUTO) 0.1 10^3/uL (0.0-0.3); EOSINOPHILS % (AUTO) 2 % (0-10); HEMATOCRIT 49 % (40-54); HEMOGLOBIN 16.2 g/dL (13.3-17.7); LYMPHOCYTES # (AUTO) 2.5 10^3/uL (1.0-4.0); LYMPHOCYTES % (AUTO) 31 % (12-44); MEAN CORPUSCULAR HEMOGLOBIN 33 pg (25-34); MEAN CORPUSCULAR HGB CONC 33 g/dL (32-36); MEAN CORPUSCULAR VOLUME 100 fL (80-99); MONOCYTES # (AUTO) 0.5 10^3/uL (0.0-1.0); MONOCYTES % (AUTO) 6 % (0-12); NEUTROPHILS # (AUTO) 4.9 10^3/uL (1.8-7.8); NEUTROPHILS % (AUTO) 61 % (42-75); PLATELET COUNT 149 10^3/uL (130-400); WHITE BLOOD COUNT 8.1 10^3/uL (4.3-11.0)
--- NOTE | 2022-04-30 19:22 | ED Chest Pain ---
General Chief Complaint: Chest Pain Stated Complaint: CHEST TIGHTNESS Source: patient Exam Limitations: no limitations History of Present Illness Date Seen by Provider: Apr 30, 2022 Time Seen by Provider: 19:10 Initial Comments Patient is a 46-year-old male who presents to the emergency department for evaluation of chest pain/tightness that began at approximately noon today. Patient states the pain initially lasted approximately 40 minutes. States it has been intermittent since that time but not as severe. Denies any shortness of breath, diaphoresis, radiation of the pain. States the pain is mostly in the center of his chest. It does radiate to his back. Denies any tearing sensation. Denies any history of cardiac abnormality. Allergies and Home Medications Allergies Coded Allergies: NSAIDS (Non-Steroidal Anti-Inflamma (Verified Adverse Reaction, Mild, GI upset, 07/27/21) Instructed to avoid NSAIDS due to mini gastric bypass Patient Home Medication List Home Medication List Reviewed: Yes Aripiprazole (Aripiprazole) 15 Mg Tablet, 15 MG PO DAILY, (Reported) Entered as Reported by: VITO MEDRANO on 04/12/19 113 Atorvastatin Calcium (Atorvastatin Calcium) 10 Mg Tablet, 10 MG PO HS, (Reported) Entered as Reported by: VITO MEDRANO on 04/12/19 113 Divalproex Sodium (Divalproex Sodium) 500 Mg Tablet., 500 MG PO BID, (Reported) Entered as Reported by: LV GORDILLO on 03/23/161942 Escitalopram Oxalate (Escitalopram Oxalate) 20 Mg Tablet, 20 MG PO HS, (Reported) Entered as Reported by: LV GORDILLO on 03/23/161942 Levothyroxine Sodium (Levothyroxine Sodium) 137 Mcg Tablet, 137 MCG PO DAILY, (Reported) Entered as Reported by: VITO MEDRANO on 04/12/19 1133 Multivit-Min/Folic/Vit K/Lycop (Men's Multivitamin Tablet) 1 Each Tablet, 1 EACH PO DAILY, (Reported) Entered as Reported by: VITO MEDRANO on 04/12/19 113 Pantoprazole Sodium (Protonix) 40 Mg Tablet., 40 MG PO DAILY Prescribed by: DESHAWN HOLLY on 07/27/21 230 Prazosin HCl (Prazosin HCl) 2 Mg Capsule, 2 MG PO DAILY, (Reported) Entered as Reported by: VITO MEDRANO on 04/12/19 1137 Propranolol HCl (Propranolol HCl ER) 60 Mg Cap.sa.24h, 60 MG PO DAILY, (Reported) Entered as Reported by: LV GORDILLO on 03/23/161942 Sucralfate (Carafate) 1 Gram Tablet, 1 GM PO QID Prescribed by: BYRON SHAW on 03/31/22 0905 Tamsulosin HCl (Flomax) 0.4 Mg Cap, 0.4 MG PO DAILY Prescribed by: LENCHO CEBALLOS on 11/30/21 221 Topiramate (Topiramate) 50 Mg Tablet, 100 MG PO DAILY, (Reported) Entered as Reported by: VITO MEDRANO on 04/12/19 1137 Review of Systems Review of Systems Constitutional: no symptoms reported EENTM: No Symptoms Reported Respiratory: No Symptoms Reported Cardiovascular: See HPI, Chest Pain Gastrointestinal: No Symptoms Reported Genitourinary: No Symptoms Reported Musculoskeletal: no symptoms reported Skin: no symptoms reported Psychiatric/Neurological: No Symptoms Reported Endocrine: No Symptoms Reported Hematologic/Lymphatic: No Symptoms Reported Past Qdxmndi-Ngoytq-Yxucne Hx Patient Social History Tobacco Use?: Yes Tobacco type used: Cigars Substance use?: Yes Substance type: Marijuana Additional substance use comme: [facility] Substance frequency: Once in a while Alcohol Use?: Yes Alcohol Frequency: Once in a while Pt feels they are or have been: No Immunizations Up To Date Tetanus Booster (TDap): Unknown Influenza Vaccine Up-to-Date: Yes; Up-to-Date First/Initial COVID19 Vaccinat: "Last Year" Second COVID19 Vaccination Chirag: "Last Year" Third COVID19 Vaccination Date: N/A Seasonal Allergies Seasonal Allergies: No Past Medical History Surgery/Hospitalization HX: PMH; SEIZURES AND HEAD INJURY 2008. SURGERY;RT HIP SURGERY 2020, BACK SURGERY, AND NECK FUSION. 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) Headaches /Migraines, Seizure Disorder, Traumatic Brain Injury Reproductive Disorders: No Sexually Transmitted Disease: No HIV/AIDS: No Genitourinary: Yes Kidney Stones Gastrointestinal: Yes (GASTRIC BYPASS 05/2021) Gastroesophageal Reflux, Polyps Musculoskeletal: Yes (CHRONIC NECK/BACK PAIN;S/P MULTIPLE SURGERIES) Degenerate Disk Disease, Arthritis, Back Injury, Chronic Back Pain, Fractures, Gout Endocrine: Yes (HX OF DIABETES-NOT ON MEDICATIONS NOW; MORBID OBESITY) Hypothyroidsim, Diabetes, Non-Insulin dep HEENT: No Loss of Vision: Denies Hearing Impairment: Denies Cancer: No Psychosocial: Yes Anxiety, PTSD, Depression Integumentary: No Blood Disorders: No Adverse Reaction/Blood Tranf: No (N/A) Family Medical History No Pertinent Family Hx SOCIAL HISTORY: -OCCASIONALLY SMOKES CIGARS -OCCASIONAL ETOH -DENIES DRUG USE PAST SURGICAL HISTORY: -SHOULDER SURGERY X 2 -CERVICAL SPINE SURGERY WITH HARDWARE -BACK SURGERY X 3 -SPINAL NERVE STIMULATOR -BICEPS SURGERY -TESTICULAR SURGERY -COLONOSCOPIES/POLYPECTOMY -GASTRIC BYPASS 05/[address] [facility] [address] MARLOW Physical Exam Vital Signs Vital Signs - First Documented 04/30/22 04/30/22 19:09 20:42 Temp 35.9 Pulse 71 Resp 24 B/P (MAP) 126/78 (94) Pulse Ox 100 O2 Delivery Room Air Capillary Refill : Height, Weight, BMI Height: 5'11.00" Weight: 285lbs. 0oz. 129.643095rn; 30.06 BMI Method:Actual General Appearance: No Apparent Distress, WD/WN HEENT: PERRL/EOMI, TMs Normal, Normal ENT Inspection, Pharynx Normal Neck: Full Range of Motion, Normal Inspection, Non Tender, Supple Respiratory: Chest Non Tender, Lungs Clear, Normal Breath Sounds, No Accessory Muscle Use, No Respiratory Distress Cardiovascular: Regular Rate, Rhythm Gastrointestinal: Non Tender, Soft Neurologic/Psychiatric: Alert, Oriented x3, No Motor/Sensory Deficits, Normal Mood/Affect Skin: Normal Color, Warm/Dry Progress/Results/Core Measures Results/Orders Lab Results Laboratory Tests Test 04/30/22 19:16 Range/Units White Blood Count 8.1 4.3-11.0 10^3/uL Red Blood Count 4.91 4.30-5.52 10^6/uL Hemoglobin 16.2 13.3-17.7 g/dL Hematocrit 49 40-54 % Mean Corpuscular Volume 100 H 80-99 fL Mean Corpuscular Hemoglobin 33 25-34 pg Mean Corpuscular Hemoglobin Concent 33 32-36 g/dL Red Cell Distribution Width 13.8 10.0-14.5 % Platelet Count 149 130-400 10^3/uL Mean Platelet Volume 12.0 9.0-12.2 fL Immature Granulocyte % (Auto) 0 % Neutrophils (%) (Auto) 61 42-75 % Lymphocytes (%) (Auto) 31 12-44 % Monocytes (%) (Auto) 6 0-12 % Eosinophils (%) (Auto) 2 0-10 % Basophils (%) (Auto) 1 0-10 % Neutrophils # (Auto) 4.9 1.8-7.8 10^3/uL Lymphocytes # (Auto) 2.5 1.0-4.0 10^3/uL Monocytes # (Auto) 0.5 0.0-1.0 10^3/uL Eosinophils # (Auto) 0.1 0.0-0.3 10^3/uL Basophils # (Auto) 0.0 0.0-0.1 10^3/uL Immature Granulocyte # (Auto) 0.0 0.0-0.1 10^3/uL Prothrombin Time 14.3 12.2-14.7 SEC INR Comment 1.1 0.8-1.4 Activated Partial Thromboplast Time 29 24-35 SEC Sodium Level 140 135-145 MMOL/L Potassium Level 4.1 3.6-5.0 MMOL/L Chloride Level 108 H 98-107 MMOL/L Carbon Dioxide Level 22 21-32 MMOL/L Anion Gap 10 5-14 MMOL/L Blood Urea Nitrogen 13 7-18 MG/DL Creatinine 0.77 0.60-1.30 MG/DL Estimat Glomerular Filtration Rate 110 BUN/Creatinine Ratio 17 Glucose Level 72 70-105 MG/DL Calcium Level 9.0 8.5-10.1 MG/DL Corrected Calcium 9.0 8.5-10.1 MG/DL Magnesium Level 2.1 1.6-2.4 MG/DL Total Bilirubin 0.3 0.1-1.0 MG/DL Aspartate Amino Transf (AST/SGOT) 29 5-34 U/L Alanine Aminotransferase (ALT/SGPT) 37 0-55 U/L Alkaline Phosphatase 45 40-136 U/L Troponin I < 0.028 <0.028 NG/ML Total Protein 6.7 6.4-8.2 GM/DL Albumin 4.0 3.2-4.5 GM/DL My Orders Orders - LIEN FERRARI BOOKY Cbc With Automated Diff (04/30/22 19:15) Magnesium (04/30/22 19:15) Chest 1 View, Ap/Pa Only (04/30/22 19:15) Comprehensive Metabolic Panel (04/30/22 19:15) Protime With Inr (04/30/22 19:15) Partial Thromboplastin Time (04/30/22 19:15) O2 (04/30/22 19:15) Monitor-Rhythm Ecg Trace Only (04/30/22 19:15) Ed Iv/Invasive Line Start (04/30/22 19:15) Troponin I Frontier (04/30/22 19:15) Aspirin Chewable Tablet (Baby Aspirin Ch (04/30/22 19:15) Medications Given in ED Vital Signs/I&O 04/30/22 04/30/22 19:09 20:42 Temp 35.9 Pulse 71 57 Resp 24 21 B/P (MAP) 126/78 (94) 114/77 Pulse Ox 100 O2 Delivery Room Air Progress Progress Note : Progress Note Patient is nontoxic and well-hydrated on exam. Vital signs are reassuring. No adventitious lung sounds or increased work of breathing noted. Patient was ambulatory to the room without issue. Orders placed for chest pain work-up including CBC, CMP, troponin, coagulation studies, EKG, chest x-ray. CBC is unremarkable for any significant findings. Specifically there is no sign of anemia or thrombocytopenia. CMP without any significant metabolic derangements. Troponin is negative. Coagulation studies were reassuring. EKG without acute ischemic change or arrhythmia. Chest x-ray reveals no acute abnormality. Overall ACS is unlikely at this time. No need for repeat troponin as the pain has been present for more than 3 hours. Discussed supportive care and anticipatory guidance. Discussed importance of follow-up with PCP. Return precautions for symptomology discussed. Patient verbalized understanding. EKG : EKG Time: 19:11 Rate: 69 Rhythm: Normal Sinus Intervals: Normal ECG Impression: Normal Departure Impression Primary Impression: Chest pain Qualified Codes: R07.9 - Chest pain, unspecified Disposition: 01 HOME, SELF-CARE Condition: Stable Departure-Patient Inst. Decision time for Depature: 20:30 Referrals: SHO BLOOD MD (PCP/Family) Primary Care Physician Patient Instructions: Chest Pain, Adult ED Add. Discharge Instructions: Follow-up with your non licensed nuclear equipment operator in the next several days. All discharge instructions reviewed with patient and/or family. Voiced understanding. LIEN FERRARI APRN Apr 30, 2022 19:22
--- NOTE | 2022-04-30 19:32 | Diagnostic Imaging Report ---
INDICATION: Chest pain. Comparison made to prior examination of 11/09/2021. FINDINGS: The heart size, mediastinal configuration, and pulmonary vascularity are within normal limits. There is no pleural effusion, pneumothorax, or pneumonia. The osseous structures are unremarkable. IMPRESSION: No acute cardiopulmonary abnormality. Dictated by: Dictated on workstation # [id number]
[2022-04-30 19:44] LABS: INR 1.1 (0.8-1.4); PROTHROMBIN TIME PATIENT 14.3 SEC (12.2-14.7)
[2022-04-30 19:48] LABS: BILIRUBIN,TOTAL 0.3 MG/DL (0.1-1.0); CREATININE SERUM 0.77 MG/DL (0.60-1.30); MAGNESIUM 2.1 MG/DL (1.6-2.4); POTASSIUM 4.1 MMOL/L (3.6-5.0); TOTAL PROTEIN 6.7 GM/DL (6.4-8.2)
[2022-04-30 20:42] VITALS: BP 114/77
== END 2022-04-30 20:44 | disposition home or self-care (01) ==
LOC: EDUNIT# 19:06 → ER 19:07
DX: R07.89 Other chest pain (principal); G47.30 Sleep apnea, unspecified; E66.01 Morbid (severe) obesity due to excess calories; F17.290 Nicotine dependence, other tobacco product, uncomplicated; Z99.89 Dependence on other enabling machines and devices; Z68.30 Body mass index [BMI] 30.0-30.9, adult
CPT/HCPCS: 36415; 71045; 80053; 83735; 84484; 85025; 85610; 85730; 93005; 93041

== ENCOUNTER 2022-09-09 11:39 | Emergency (ER) | payer MEDICARE, OTHER ==
[~2022-09-09] VITALS: Ht 180 cm; Wt 86.6 kg
[~2022-09-09 11:39] MED LIST changes: +TOPI-241 PO; -TOPI50TA13 PO
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
[2022-09-09 12:13] LABS: BASOPHILS # (AUTO) 0.1 10^3/uL (0.0-0.1); BASOPHILS % (AUTO) 1 % (0-10); EOSINOPHILS # (AUTO) 0.1 10^3/uL (0.0-0.3); EOSINOPHILS % (AUTO) 1 % (0-10); HEMATOCRIT 48 % (40-54); LYMPHOCYTES # (AUTO) 1.9 10^3/uL (1.0-4.0); LYMPHOCYTES % (AUTO) 27 % (12-44); MEAN CORPUSCULAR HEMOGLOBIN 34 pg (25-34); MEAN CORPUSCULAR HGB CONC 34 g/dL (32-36); MEAN CORPUSCULAR VOLUME 100 fL (80-99); MEAN PLATELET VOLUME 12.7 fL (9.0-12.2); MONOCYTES # (AUTO) 0.5 10^3/uL (0.0-1.0); MONOCYTES % (AUTO) 7 % (0-12); NEUTROPHILS # (AUTO) 4.4 10^3/uL (1.8-7.8); NEUTROPHILS % (AUTO) 64 % (42-75); PLATELET COUNT 123 10^3/uL (130-400)
[2022-09-09 12:16] LABS: ALBUMIN 4.1 GM/DL (3.2-4.5); CHLORIDE 109 MMOL/L (98-107); SODIUM 141 MMOL/L (135-145)
[2022-09-09 12:18] LABS: GLUCOSE 89 MG/DL (70-105); TOTAL PROTEIN 6.5 GM/DL (6.4-8.2)
[2022-09-09 12:19] LABS: CARBON DIOXIDE 24 MMOL/L (21-32)
[2022-09-09 12:20] LABS: BILIRUBIN,TOTAL 0.4 MG/DL (0.1-1.0)
[2022-09-09 12:22] LABS: ALKALINE PHOSPHATASE 55 U/L (40-136); CREATININE SERUM 0.75 MG/DL (0.60-1.30); GFR ESTIMATED 111
[2022-09-09 12:23] LABS: BUN/CREATININE RATIO 15
[2022-09-09 12:25] LABS: ALANINE AMINOTRANSFERASE 33 U/L (0-55); MAGNESIUM 1.9 MG/DL (1.6-2.4)
[2022-09-09 12:26] LABS: LIPASE 48 U/L (8-78)
--- NOTE | 2022-09-09 12:51 | Diagnostic Imaging Report ---
INDICATION: Chest pain. COMPARISON: 04/30/2022. FINDINGS: Single frontal view of the chest demonstrates normal heart size and pulmonary vascularity. The lungs are well aerated and clear. No large pleural effusion or pneumothorax is seen. The visualized osseous structures show no acute abnormalities. IMPRESSION: 1. No acute cardiopulmonary process. Dictated by: Dictated on workstation # [id number]
[2022-09-09] MEDS ORDERED: KETOROLAC 30 MG/ML VIAL IVP STA (12:54)
[2022-09-09] MEDS ORDERED: ONDANSETRON 4 MG/2 ML (SDV) Z0FRAN IVP ONE (13:00)
[2022-09-09] MEDS ORDERED: ONDA4TAB11 PO (13:01)
[2022-09-09 13:12] VITALS: BP 113/81
== END 2022-09-09 13:12 | disposition home or self-care (01) ==
LOC: EDUNIT# 11:39 → ER 11:41
DX: R11.0 Nausea (principal); R10.84 Generalized abdominal pain; G47.30 Sleep apnea, unspecified; E66.01 Morbid (severe) obesity due to excess calories; F17.290 Nicotine dependence, other tobacco product, uncomplicated; Z68.26 Body mass index [BMI] 26.0-26.9, adult; Z98.84 Bariatric surgery status; Z99.89 Dependence on other enabling machines and devices
CPT/HCPCS: 36415; 71045; 80053; 83690; 83735; 83880; 84484; 85025; 93005

== ENCOUNTER 2022-09-19 19:09 | Emergency (ER) | payer MEDICARE, OTHER ==
[~2022-09-19 19:09] MED LIST changes: +ONDA4TAB11 PO
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
[2022-09-19 19:52] LABS: BILIRUBIN,URINE NEGATIVE (NEGATIVE); CLARITY,URINE CLEAR; COLOR,URINE YELLOW; GLUCOSE, URINE (UA) NEGATIVE (NEGATIVE); KETONES,URINE NEGATIVE (NEGATIVE); LEUKOCYTE ESTERASE ,URINE NEGATIVE (NEGATIVE); NITRITE,URINE NEGATIVE (NEGATIVE); PROTEIN,URINE NEGATIVE (NEGATIVE)
[2022-09-19 20:04] LABS: AMORPHOUS SEDIMENT,UR LARGE AMOR PHOSPHATE /LPF; BACTERIA,URINE NEGATIVE /HPF; HYALINE CASTS, URINE RARE /LPF
[2022-09-19] MEDS ORDERED: DILTIAZEM 2% PR (20:40)
[2022-09-19 20:50] VITALS: BP 122/80
== END 2022-09-19 20:50 | disposition home or self-care (01) ==
LOC: EDUNIT# 19:09 → ER 19:12
DX: K62.89 Other specified diseases of anus and rectum (principal); G47.30 Sleep apnea, unspecified; E66.01 Morbid (severe) obesity due to excess calories; F17.290 Nicotine dependence, other tobacco product, uncomplicated; Z68.26 Body mass index [BMI] 26.0-26.9, adult; Z99.89 Dependence on other enabling machines and devices
CPT/HCPCS: 81000; 99282

== ENCOUNTER 2022-10-01 08:17 | Outpatient (CLI) | payer MEDICARE, OTHER ==
[~2022-10-01] VITALS: Ht 180.3 cm; Wt 88.9 kg
[~2022-10-01 08:17] MED LIST changes: +DILTIAZEM 2% PR
[2022-10-01] MEDS ORDERED: MIDO5TAB3 PO (08:58)
[2022-10-01] MEDS ORDERED: TOLT4CAP26 PO (08:58)
[2022-10-01] MEDS ORDERED: PANT40TA52 PO (09:01)
[2022-10-01] MEDS ORDERED: DULO60CA59 PO (09:01)
[2022-10-01] MEDS ORDERED: TMSL.4C PO (09:01)
[2022-10-01] MEDS ORDERED: ARIP20TA20 PO (09:01)
[2022-10-01] MEDS ORDERED: FLDR.1T PO (09:01)
[2022-10-01] MEDS ORDERED: TOPI-241 PO (09:03)
[2022-10-01] MEDS ORDERED: MULT1CAP54 PO (09:03)
== END 2022-10-01 09:10 | disposition home or self-care (01) ==
LOC: PREOP 08:17
PROVIDERS: ATTEND Surgery
DX: Z01.818 Encounter for other preprocedural examination (principal)

== ENCOUNTER 2022-10-02 11:46 | Day surgery (SDC) | payer MEDICARE, OTHER ==
[~2022-10-02] VITALS: Ht 180.3 cm; Wt 88.9 kg
[~2022-10-02 11:46] MED LIST changes: +ARIP20TA20 PO; +DULO60CA59 PO; +FLDR.1T PO; +MIDO5TAB3 PO; +MULT1CAP54 PO; +PANT40TA52 PO; +TOLT4CAP26 PO
[2022-10-02] MEDS ORDERED: LACTATED RINGERS 1,000 ML IV ONE (11:54)
[2022-10-02] MEDS ORDERED: LACTATED RINGERS 1,000 ML IV STA (11:57)
[2022-10-02 12:10] VITALS: BP 109/69
--- NOTE | 2022-10-02 15:28 | Progress Note-Pre Operative ---
Pre-Operative Progress Note Date H&P Reviewed: Oct 02, 2022 Time H&P Reviewed: 15:28 History & Physical: H&P Reviewed, Patient Examed, No changes noted Pre-Operative Diagnosis: rectal pain BYRON SHAW DO Oct 02, 2022 15:28
[2022-10-02] MEDS ORDERED: PROPOFOL INJECTION 50 ML IV ONE (15:57)
--- NOTE | 2022-10-02 16:31 | Progress Note-Post Operative ---
Post-Operative Progess Note Surgeon (s)/Top Collar Maker (s) Surgeon BYRON SHAW DO Top Collar Maker: na Pre-Operative Diagnosis rectal pain Post-Operative Diagnosis possible proctitis Procedure & Operative Findings Date of Procedure 10/02/22 Procedure Performed/Findings colonoscopy c cold biopsies of rectum Anesthesia Type per reclamation furnace operator Estimated Blood Loss Estimated blood loss (mL): none Specimens/Packing Specimens Removed rectum BYRON SHAW DO Oct 02, 2022 16:31
--- NOTE | 2022-10-02 16:32 | Discharge Inst-Simple/Standard ---
Discharge Inst-Standard Patient Instructions/Follow Up Plan of Care/Instructions/FU: 1 week Renetta Activity as Tolerated: Yes Discharge Diet: Regular Diet BYRON SHAW DO Oct 02, 2022 16:32
--- NOTE | 2022-10-02 16:34 | Anesthesia-General Post-Op ---
MAC Patient Condition Mental Status/LOC: Same as Preop Cardiovascular: Satisfactory Nausea/Vomiting: Absent Respiratory: Satisfactory Pain: Controlled Complications: Absent Post Op Complications Complications None Follow Up Care/Instructions Patient Instructions None needed. Anesthesiology Discharge Order Discharge Order Patient is doing well, no complaints, stable vital signs, no apparent adverse anesthesia problems. No complications reported per nursing. LISY HOWARD CRNA Oct 02, 2022 16:34
[2022-10-02 16:35] VITALS: BP 128/59
[2022-10-02 16:40] VITALS: BP 136/63
[2022-10-02 17:03] VITALS: BP 113/47
--- NOTE | 2022-10-02 19:51 | OPERATIVE REPORT ---
DATE OF SERVICE: 10/02/2022 PREOPERATIVE DIAGNOSIS: Rectal pain. POSTOPERATIVE DIAGNOSES: Possible proctitis. PROCEDURE: Colonoscopy with cold biopsies of rectum. SURGEON: Byron Jackson DO ANESTHESIA: Per FOREST TECHNICIAN. ESTIMATED BLOOD LOSS: None. COMPLICATIONS: None. INDICATIONS: The patient is a 47-year-old male who has been having rectal pain. He was discussed risks and benefits of procedure and wished to proceed. Consent was signed in chart. DESCRIPTION OF PROCEDURE: The patient was taken to endoscopy suite, placed in left lateral recumbent position. Timeout was performed. Digital rectal exam was performed. No palpable polyps, masses or ulcerations. Slightly boggy prostate. Scope was inserted in the rectum and advanced all the way to the cecum with minimal difficulty. Prep was adequate with irrigation and suction. Scope was then slowly retracted back. No polyps, masses or ulcerations in the cecum, ascending, transverse, descending and sigmoid colon. Once in the rectum, had some slight possible proctitis appearance. Cold biopsies were obtained. Scope was retroflexed noting no other pathology. Scope was returned to its normal position, slowly withdrawn until completely removed. The patient tolerated the procedure well without complications, taken to recovery room in stable condition. RECOMMENDATIONS: The patient will need repeat colonoscopy in 10 years unless family history of colon cancer or personal history of polyps, which will then be 5 years. The patient has any problems prior to that, he should be reevaluated at that time. The patient will follow up on biopsies to see what further management of this if this is normal, would consider CT scan of the abdomen and pelvis for further evaluation. Job ID: [id number] DocumentID: [id number] Dictated Date: 10/02/2022 16:34:27 Foundation Maker Date: 10/02/2022 19:49:00 Dictated By: BYRON JACKSON DO
== END 2022-10-02 17:03 | disposition home or self-care (01) ==
LOC: ENDO 11:46
PROVIDERS: ATTEND Surgery
DX: K52.9 Noninfective gastroenteritis and colitis, unspecified (principal); K62.89 Other specified diseases of anus and rectum; F17.210 Nicotine dependence, cigarettes, uncomplicated
CPT/HCPCS: 88305

== ENCOUNTER → 2022-10-12 | Outpatient (CLI) | payer MEDICARE, OTHER ==
[~2022-10-12] MED LIST changes: +IOHEXOL 350 MG/ML 100 ML (OMNIPAQUE 350) VIAL IV ONE; +NS 100 ML (IVPB) BAG IV ONE
--- NOTE | 2022-10-12 21:05 | Diagnostic Imaging Report ---
PROCEDURE: CT abdomen and pelvis with contrast. TECHNIQUE: Multiple contiguous axial images were obtained through the abdomen and pelvis after administration of intravenous contrast. Auto Exposure Controls were utilized during the CT exam to meet ALARA standards for radiation dose reduction. All CT scans use one or more of the following dose optimizing techniques: automated exposure control, MA and/or KvP adjustment based on patient size and exam type or iterative reconstruction. INDICATION: 47-year-old male presents with rectal pain for 4 months. COMPARISONS: None FINDINGS: Lung bases are clear. Cardiac contour is normal. Liver shows uniform attenuation. Gallbladder, spleen, GE junction are normal. There is a gastric bypass. The stomach and duodenal sweep are unremarkable. Pancreas shows sharp margins. Adrenals are normal. Kidneys appear normal in size, position, and contour with symmetrical perfusion of contrast. There is a 4 mm nonobstructing inferior pole calyx stone of the left kidney. There is a 2.9 cm inferiorly projecting Bosniak classification 2 capsular cyst of the inferior pole of the right kidney. There is no evidence of obstructive uropathy. Both ureters are seen intermittently through their course and appear unremarkable. Partially filled bladder is normal. Beam Maier artifact from left hip prosthesis does limit assessment of the pelvis. Nonopacified loops of small bowel are grossly normal. The appendix is unremarkable. Large bowel contains fecal material and gas. The distal colon is mostly decompressed. There is no free air, free fluid or adenopathy. Visualized vasculature shows normal caliber of aorta, iliac and femoral arteries with normal origin of the visceral arteries. Bone windows show no other gross abnormalities. IMPRESSION: 1. No evidence of cholecystitis, appendicitis or obstructive uropathy. 2. There is a nonobstructing 4 mm stone in the midpole calyx of left kidney 3. Incidental Bosniak opacification 2 cyst measuring 2.9 cm at the inferior pole of the right kidney. Additional nonemergent findings as described above. Dictated by: Dictated on workstation # [id number]
== END ==
LOC: RAD 17:23
PROVIDERS: ATTEND Nurse Practitioner
DX: N28.1 Cyst of kidney, acquired (principal); K62.89 Other specified diseases of anus and rectum
CPT/HCPCS: 74177

== ENCOUNTER 2022-11-12 13:03 | Outpatient (CLI) | payer MEDICARE, OTHER ==
[~2022-11-12] VITALS: Ht 180.3 cm; Wt 88.9 kg
[~2022-11-12 13:03] MED LIST changes: -IOHEXOL 350 MG/ML 100 ML (OMNIPAQUE 350) VIAL IV ONE; -NS 100 ML (IVPB) BAG IV ONE
== END 2022-11-12 14:09 | disposition home or self-care (01) ==
LOC: PREOP 13:03
PROVIDERS: ATTEND Surgery
DX: Z01.818 Encounter for other preprocedural examination (principal)

== ENCOUNTER 2022-11-19 09:13 | Day surgery (SDC) | payer MEDICARE, OTHER ==
[~2022-11-19] VITALS: Ht 180 cm; Wt 88.9 kg
[2022-11-19] MEDS ORDERED: LACTATED RINGERS 1,000 ML 1,000 ML IV STA (09:26)
[2022-11-19 09:47] VITALS: BP 119/78
[2022-11-19] MEDS ORDERED: proPOfol INJECTION 200 MG/20 ML VIAL IV ONE (10:01)
--- NOTE | 2022-11-19 10:05 | Progress Note-Pre Operative ---
Pre-Operative Progress Note Date H&P Reviewed: Nov 19, 2022 Time H&P Reviewed: 10:05 History & Physical: H&P Reviewed, Patient Examed, No changes noted Pre-Operative Diagnosis: rectal pain BYRON SHAW DO Nov 19, 2022 10:05
[2022-11-19 10:20] VITALS: BP 91/54
[2022-11-19] MEDS ORDERED: DOCU-143 PO (10:24)
[2022-11-19 10:25] VITALS: BP 91/58
--- NOTE | 2022-11-19 10:25 | Discharge Inst-Simple/Standard ---
Discharge Inst-Standard Discharge Medications New, Converted or Re-Newed RX: Transmitted to Pharmacy Patient Instructions/Follow Up Plan of Care/Instructions/FU: 2 weeks Renetta Activity as Tolerated: Yes Discharge Diet: Regular Diet BYRON SHAW DO Nov 19, 2022 10:25
--- NOTE | 2022-11-19 10:28 | Progress Note-Post Operative ---
Post-Operative Progess Note Surgeon (s)/Test Facility Engineer (s) Surgeon BYRON SHAW DO Test Facility Engineer: na Pre-Operative Diagnosis rectal pain Post-Operative Diagnosis post anal fissure Procedure & Operative Findings Date of Procedure 11/19/22 Procedure Performed/Findings flex sig c cold rectal biopsy Anesthesia Type per mda Estimated Blood Loss Estimated blood loss (mL): none Specimens/Packing Specimens Removed rectal BYRON SHAW DO Nov 19, 2022 10:28
[2022-11-19 10:30] VITALS: BP 115/71
[2022-11-19 10:55] VITALS: BP 123/79
[2022-11-19 11:30] VITALS: BP 123/79
--- NOTE | 2022-11-19 14:43 | OPERATIVE REPORT ---
DATE OF SERVICE: 11/19/2022 PREOPERATIVE DIAGNOSIS: Rectal pain. POSTOPERATIVE DIAGNOSIS: Posterior anal fissure. SURGEON: Byron Jackson DO ANESTHESIA: Per MDA. ESTIMATED BLOOD LOSS: None. COMPLICATIONS: None. INDICATIONS: The patient is a 47-year-old male with recent proctitis [ ] rectal pain. He has been managed with steroids, both suppositories and oral. He understands risks and benefits of procedure and wished to proceed. Consent was signed and on chart. DESCRIPTION OF PROCEDURE: The patient was taken to the endoscopy suite, placed in left lateral recumbent position. Timeout was performed. Digital rectal exam was performed noting appearance of slightly external thrombosed hemorrhoid and the posterior midline fissure. No other palpable polyps, masses or ulcerations. Scope was inserted in the rectum, which had normal appearance. Prep was adequate. Scope was continued to be inserted and sigmoid had normal appearance. Scope was then slowly retracted back. No polyps, masses or ulcerations were made in the sigmoid and rectum. The scope was retroflexed noting no other pathology. Scope was returned to its normal position, slowly withdrawn until completely removed, but prior to removal, cold biopsy of the rectum was obtained. The patient tolerated the procedure well without complications, taken to the recovery room in stable condition. RECOMMENDATIONS: The patient will be started on diltiazem cream to see if this does not [ ]. We will see how symptoms due in 2 weeks. Any issues before that, be seen at that time. Job ID: [id number] DocumentID: [id number] Dictated Date: 11/19/2022 10:39:26 Children'S Aide Date: 11/19/2022 14:41:00 Dictated By: BYRON JACKSON DO
== END 2022-11-19 11:30 | disposition home or self-care (01) ==
LOC: ENDO 09:13
PROVIDERS: ATTEND Surgery
DX: K60.2 Anal fissure, unspecified (principal); K62.89 Other specified diseases of anus and rectum; F17.210 Nicotine dependence, cigarettes, uncomplicated
CPT/HCPCS: 88305

== ENCOUNTER 2022-12-05 18:11 | Emergency (ER) | payer MEDICARE, OTHER ==
[~2022-12-05] VITALS: Ht 180 cm; Wt 85.7 kg
[~2022-12-05 18:11] MED LIST changes: +DOCU-143 PO
--- NOTE | 2022-12-05 18:43 | ED Head Injury ---
General Chief Complaint: Trauma-Non Activation Stated Complaint: HAD A SEIZURE/FELL HIT HEAD Nursing Triage Note: PT PRESENTS TO ED ACCOMPANIED BY WITH COMPLAINTS OF HAVING SEIZURE AND FALLING AND HITTING L SIDE OF HIS HEAD ON TILE FLOOR AROUND 1650. PT STATES THE SEIZURE WAS NOT UNUSUAL FOR HIM AND HE FALLS FREQUENTLY FROM HIS TBI. PT WAS CONCERNED WITH THE BARRIENTOS THE PT REPORTED HE HAD AFTER THE FALL. Source: patient, family Exam Limitations: no limitations History of Present Illness Date Seen by Provider: Dec 05, 2022 Time Seen by Provider: 18:25 Initial Comments 47-year-old male presents to the ER with for concern of head injury after a seizure which occurred at 1650. 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 Tonight patient had a seizure, fell and hit the left side of his head. reports that he instantly complained of a headache after the seizure. reports that he also seems to be taking longer to return to normal after his seizure. She reports that his eyes seem to not want a focus, states that is normal after seizure, but usually only lasts about 30 minutes. reports that he also seems to be repeating questions. States that his symptoms are improving now though. Patient complains of a headache on the left side of his head. Also complains of chest pain which has been present for the last couple of days as well as generalized abdominal pain. He reports that he was having some nausea on the ride over here. He denies fevers, cough, diarrhea, vomiting. reports compliance with medications, states he has not missed any doses of his seizure medications. Location Injury Occurred: [facility] Allergies and Home Medications Allergies Coded Allergies: bee venom protein (honey bee) (Verified Allergy, Unknown, 12/05/22) ibuprofen (Verified Allergy, Unknown, 12/05/22) Patient Home Medication List Home Medication List Reviewed: Yes Aripiprazole (Aripiprazole) 20 Mg Tablet, 20 MG PO HS, (Reported) Entered as Reported by: VITO MEDRANO on 10/01/22 0901 Divalproex Sodium (Divalproex Sodium) 500 Mg Tablet.dr, 500 MG PO BID, (Reported) Entered as Reported by: LV GORDILLO on 03/23/161942 Docusate Sodium (Colace) 100 Mg Capsule, 100 MG PO BID Prescribed by: BYRON SHAW on 11/19/22 1024 Duloxetine HCl (Duloxetine HCl) 60 Mg Capsule.dr, 60 MG PO DAILY, (Reported) Entered as Reported by: VITO MEDRANO on 10/01/22900 Fludrocortisone Acetate (Fludrocortisone Acetate) 0.1 Mg Tab, 0.2 MG PO DAILY, (Reported) Entered as Reported by: VITO MEDRANO on 10/01/22900 Midodrine HCl (Midodrine HCl) 5 Mg Tablet, 5 MG PO BID, (Reported) Entered as Reported by: VITO MEDRANO on 10/01/22 08 Multivit-Min/Iron/Folic Acid/K (Bariatric Mv-Iron 45 mg Cap) 45 Mg Iron-800 Mcg- 120 Mcg Capsule, 1 EACH PO BID, (Reported) Entered as Reported by: VITO MEDRANO on 10/01/22902 Pantoprazole Sodium (Pantoprazole Sodium) 40 Mg Tablet.dr, 40 MG PO DAILY, (Reported) Entered as Reported by: VITO MEDRANO on 10/01/22900 Prazosin HCl (Prazosin HCl) 2 Mg Capsule, 4 MG PO HS, (Reported) Entered as Reported by: VITO MEDRANO on 04/12/19 113 Tamsulosin HCl (Flomax) 0.4 Mg Cap, 0.4 MG PO DAILY, (Reported) Entered as Reported by: VITO MEDRANO on 10/01/22900 Tolterodine Tartrate (Tolterodine Tartrate ER) 4 Mg Cap.er.24h, 4 MG PO DAILY, (Reported) Entered as Reported by: VITO MEDRANO on 10/01/22 08 Topiramate (Topiramate) 50 Mg Tablet, 100 MG PO DAILY, (Reported) Entered as Reported by: VITO MEDRANO on 04/12/19 113 Topiramate (Topiramate) 50 Mg Tablet, 50 MG PO HS, (Reported) Entered as Reported by: VITO MEDRANO on 10/01/22902 Review of Systems Review of Systems Constitutional: see HPI Past Tmtkivg-Iilnht-Skzwpl Hx Patient Social History Tobacco Use?: Yes Tobacco type used: Cigars Smoking Status: Current Everyday Smoker Substance use?: Yes Substance type: Marijuana Additional substance use comme: HAS MEDICAL MARIJUANA PRESCRIPTION Alcohol Use?: Yes Alcohol type: Beer Alcohol Frequency: Once in a while Pt feels they are or have been: No Immunizations Up To Date Tetanus Booster (TDap): Unknown First/Initial COVID19 Vaccinat: "Last Year" Second COVID19 Vaccination Chirag: "Last Year" Third COVID19 Vaccination Date: N/A Seasonal Allergies Seasonal Allergies: No Past Medical History Surgery/Hospitalization HX: PMH; SEIZURES AND HEAD INJURY 2008. TBI, POST CONCUSSION SYNDROME. SURGERY;RT HIP SURGERY 2020, BACK SURGERY, AND NECK FUSION. 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;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) Headaches /Migraines, Seizure Disorder, Traumatic Brain Injury Reproductive Disorders: No Sexually Transmitted Disease: No HIV/AIDS: No Genitourinary: Yes Kidney Stones Gastrointestinal: Yes (GASTRIC BYPASS 05/2021, rectal pain) Gastroesophageal Reflux, Polyps Musculoskeletal: Yes (CHRONIC NECK/BACK PAIN;S/P MULTIPLE SURGERIES) Degenerate Disk Disease, Arthritis, Back Injury, Chronic Back Pain, Fractures, Gout Endocrine: Yes (HX OF DIABETES-NOT ON MEDICATIONS NOW; ) Diabetes, Non-Insulin dep HEENT: No Loss of Vision: Denies Hearing Impairment: Denies Cancer: No Psychosocial: Yes Anxiety, PTSD, Depression Integumentary: No Blood Disorders: No Adverse Reaction/Blood Tranf: No (N/A) Family Medical History No Pertinent Family Hx SOCIAL HISTORY: -OCCASIONALLY SMOKES CIGARS -OCCASIONAL ETOH -DENIES DRUG USE PAST SURGICAL HISTORY: -SHOULDER SURGERY X 2 -CERVICAL SPINE SURGERY WITH HARDWARE -BACK SURGERY X 3 -SPINAL NERVE STIMULATOR -BICEPS SURGERY -TESTICULAR SURGERY -COLONOSCOPIES/POLYPECTOMY -GASTRIC BYPASS 05/[address] AT [facility] BY DR. MARLOW Physical Exam Vital Signs Vital Signs - First Documented 12/05/22 12/05/22 18:20 20:35 Temp 37.0 Pulse 65 Resp 18 B/P (MAP) 127/83 (98) Pulse Ox 99 O2 Delivery Room Air Capillary Refill : Less Than 3 Seconds Height, Weight, BMI Height: 5'11.00" Weight: 285lbs. 0oz. 129.160365xf; 26.00 BMI Method:Actual General Appearance: WD/WN, no apparent distress HEENT: PERRL/EOMI, TMs normal Neck: non-tender, full range of motion, supple, normal inspection Cardiovascular: regular rate, rhythm Respiratory: lungs clear, normal breath sounds, no respiratory distress, no accessory muscle use Gastrointestinal: normal bowel sounds, non tender, soft Extremities: normal range of motion, normal inspection Psychiatric: alert, oriented x 3 Crainal Nerves: normal hearing, normal speech, PERRL Skin: normal color, warm/dry Progress/Results/Core Measures Results/Orders Lab Results Laboratory Tests Test 12/05/22 18:22 Range/Units White Blood Count 8.2 4.3-11.0 10^3/uL Red Blood Count 5.01 4.30-5.52 10^6/uL Hemoglobin 16.8 13.3-17.7 g/dL Hematocrit 50 40-54 % Mean Corpuscular Volume 99 80-99 fL Mean Corpuscular Hemoglobin 34 25-34 pg Mean Corpuscular Hemoglobin Concent 34 32-36 g/dL Red Cell Distribution Width 13.9 10.0-14.5 % Platelet Count 133 130-400 10^3/uL Mean Platelet Volume 12.6 H 9.0-12.2 fL Immature Granulocyte % (Auto) 0 % Neutrophils (%) (Auto) 58 42-75 % Lymphocytes (%) (Auto) 33 12-44 % Monocytes (%) (Auto) 7 0-12 % Eosinophils (%) (Auto) 1 0-10 % Basophils (%) (Auto) 1 0-10 % Neutrophils # (Auto) 4.8 1.8-7.8 10^3/uL Lymphocytes # (Auto) 2.7 1.0-4.0 10^3/uL Monocytes # (Auto) 0.6 0.0-1.0 10^3/uL Eosinophils # (Auto) 0.1 0.0-0.3 10^3/uL Basophils # (Auto) 0.1 0.0-0.1 10^3/uL Immature Granulocyte # (Auto) 0.0 0.0-0.1 10^3/uL Prothrombin Time 13.9 12.2-14.7 SEC INR Comment 1.1 0.8-1.4 Activated Partial Thromboplast Time 29 24-35 SEC Sodium Level 140 135-145 MMOL/L Potassium Level 3.8 3.6-5.0 MMOL/L Chloride Level 109 H 98-107 MMOL/L Carbon Dioxide Level 21 21-32 MMOL/L Anion Gap 10 5-14 MMOL/L Blood Urea Nitrogen 8 7-18 MG/DL Creatinine 0.75 0.60-1.30 MG/DL Estimat Glomerular Filtration Rate 111 BUN/Creatinine Ratio 11 Glucose Level 72 70-105 MG/DL Calcium Level 8.9 8.5-10.1 MG/DL Corrected Calcium 8.8 8.5-10.1 MG/DL Magnesium Level 2.2 1.6-2.4 MG/DL Total Bilirubin 0.4 0.1-1.0 MG/DL Aspartate Amino Transf (AST/SGOT) 34 5-34 U/L Alanine Aminotransferase (ALT/SGPT) 36 0-55 U/L Alkaline Phosphatase 56 40-136 U/L Troponin I < 0.028 <0.028 NG/ML Total Protein 6.9 6.4-8.2 GM/DL Albumin 4.1 3.2-4.5 GM/DL My Orders Orders - SPIKE UMANA R TRAVEL AGENT Cbc With Automated Diff (12/05/22 18:37) Magnesium (12/05/22 18:37) Chest 1 View, Ap/Pa Only (12/05/22 18:37) Ekg Tracing (12/05/22 18:37) Comprehensive Metabolic Panel (12/05/22 18:37) Protime With Inr (12/05/22 18:37) Partial Thromboplastin Time (12/05/22 18:37) Monitor-Rhythm Ecg Trace Only (12/05/22 18:37) Ed Iv/Invasive Line Start (12/05/22 18:37) Troponin I Ryan (12/05/22 18:37) Ct Head/Cervical Spine Wo (12/05/22 18:37) Vital Signs/I&O 12/05/22 12/05/22 12/05/22 18:20 18:36 20:35 Temp 37.0 37.0 Pulse 65 65 63 Resp 18 18 20 B/P (MAP) 127/83 (98) 127/83 (98) 108/76 Pulse Ox 99 99 97 O2 Delivery Room Air Blood Pressure Mean: 98 Progress Progress Note : Progress Note Patient seen and evaluated, resting comfortably in bed, no acute distress. Patient is slightly slow to answer questions, he is alert and oriented, but it took him a little while to answer the questions especially the year. Based on exam and symptoms, work-up initiated including CBC, CMP, magnesium, coags, troponin, chest x-ray, EKG, CT head and neck. 2023 Labs and imaging reviewed. CBC grossly normal. CMP grossly normal. Troponin negative. Magnesium normal. Coags normal. Chest x-ray shows mild hyperinflation, no acute cardiopulmonary process. CT head and neck shows no acute abnormality. Results discussed with patient and . Patient seems to be responding quicker. Symptoms may have been related to a concussion or a longer postictal period than normal. Discharge instructions and return precautions provided. Initial ECG Impression Date: Dec 05, 2022 Initial ECG Impression Time: 19:21 Initial ECG Rate: 58 Initial ECG Rhythm: S.Alonzo Initial ECG Intervals: Normal Initial ECG Impression: Normal Initial ECG Comparisson: Unchanged Diagnostic Imaging Diagonstic Imaging: Xray Plain Films/CT/US/NM/MRI: chest Comments [facility] [place] NAME: MIRIAN ANTONY [facility] REC#: [id number] PT STATUS: REG ER : 1975 PHYSICIAN: SPIKE UMANA APRN ADMIT DATE: 12/05/22/ER Signed Date of Exam:12/05/22 CHEST 1 VIEW, AP/PA ONLY INDICATION: Chest pain. COMPARISON: 09/09/2022. FINDINGS: The lungs appear clear without focal airspace opacities or consolidation. There are no findings of an effusion. Lungs are mildly hyperinflated. There is no evidence of a pneumothorax. Heart size and mediastinal contours appear appropriate. Pulmonary vascularity appears within normal limits. There is no acute or suspicious osseous abnormality demonstrated. There has been prior cervical ACDF and there is a thoracic epidural stimulator. IMPRESSION: Mild hyperinflation. No radiographic evidence of an acute cardiopulmonary process. Dictated by: Dictated on workstation # [id number] Dict: 12/05/221852 Trans: 12/05/221853 [facility] [id number] Interpreted by: AL ELENA MD Electronically signed by: AL ELENA MD 12/05/221853 Diagonstic Imaging: CT Plain Films/CT/US/NM/MRI: c-spine, head Comments [facility] [place] NAME: MIRIAN ANTONY [facility] REC#: [id number] PT STATUS: REG ER : 1975 PHYSICIAN: SPIKE UMANA APRN ADMIT DATE: 12/05/22/ER Signed Date of Exam:12/05/22 CT HEAD/CERVICAL SPINE WO PROCEDURE: CT head and CT cervical spine without contrast. TECHNIQUE: Multiple contiguous axial images were obtained through the brain and cervical spine without the use of intravenous contrast. Sagittal and coronal reformations through the cervical spine were then performed. Auto Exposure Controls were utilized during the CT exam to meet ALARA standards for radiation dose reduction. INDICATION: Trauma. Seizure. Fall. Head and neck pain. COMPARISON: CT head 09/12/2021. FINDINGS: There is no CT finding of an acute intracranial abnormality. There is no evidence of intracranial hemorrhage. There is no intracranial mass effect or shift. There is no hydrocephalus. There is no abnormal extra-axial collection. There is no finding of territorial loss of cordero-white differentiation. There is no edema. There is no CT finding of an acute calvarial fracture. The mastoid air cells are clear. There is no fluid in the paranasal sinuses. The orbital contents are normal. Cervical spine demonstrates changes of a previous ACDF of C6-C7. Cervical spinal alignment is normal. There are normal craniocervical junction relationships. Facets are normally aligned. There is no facet joint or disc space widening. Vertebral body heights are maintained. There is no acute cervical spine fracture. Soft tissues of the neck demonstrate no acute process. The visualized portion of lung apices are clear. IMPRESSION: 1. No CT evidence of an acute intracranial abnormality. 2. No identified calvarial or facial fracture. 3. Previous operative changes of an ACDF of C6-C7. There is no cervical spine fracture or traumatic malalignment. Dictated by: Dictated on workstation # [id number] Dict: 12/05/221899 Trans: 12/05/221954 [facility] [phone] Interpreted by: AL ELENA MD Electronically signed by: AL ELENA MD 12/05/221954 Departure Impression Primary Impression: Head injury Additional Impression: Seizure Disposition: 01 HOME, SELF-CARE Condition: Stable Departure-Patient Inst. Decision time for Depature: 20:24 Referrals: SHO BLOOD MD (PCP/Family) Primary Care Physician Patient Instructions: Concussion, Adult ED Add. Discharge Instructions: Avoid activities that cause symptoms like headache, nausea, vomiting, dizziness until the symptoms improve. You may expect to have concussion symptoms for up to a week or longer depending on the severity. Follow-up with your primary care provider. Return if you are having difficulty with normal activities, abnormal behavior, change in pupil sizes, headache, weakness on 1 side your body, or any other new, concerning, or worsening symptoms. All discharge instructions reviewed with patient and/or family. Voiced understanding. SPIKE UMANA TRAVEL AGENT Dec 05, 2022 18:43
[2022-12-05 18:54] LABS: BASOPHILS # (AUTO) 0.1 10^3/uL (0.0-0.1); BASOPHILS % (AUTO) 1 % (0-10); EOSINOPHILS # (AUTO) 0.1 10^3/uL (0.0-0.3); EOSINOPHILS % (AUTO) 1 % (0-10); HEMATOCRIT 50 % (40-54); HEMOGLOBIN 16.8 g/dL (13.3-17.7); LYMPHOCYTES # (AUTO) 2.7 10^3/uL (1.0-4.0); LYMPHOCYTES % (AUTO) 33 % (12-44); MEAN CORPUSCULAR HEMOGLOBIN 34 pg (25-34); MEAN CORPUSCULAR HGB CONC 34 g/dL (32-36); MEAN CORPUSCULAR VOLUME 99 fL (80-99); MEAN PLATELET VOLUME 12.6 fL (9.0-12.2); MONOCYTES # (AUTO) 0.6 10^3/uL (0.0-1.0); MONOCYTES % (AUTO) 7 % (0-12); NEUTROPHILS # (AUTO) 4.8 10^3/uL (1.8-7.8); NEUTROPHILS % (AUTO) 58 % (42-75); PLATELET COUNT 133 10^3/uL (130-400); WHITE BLOOD COUNT 8.2 10^3/uL (4.3-11.0)
--- NOTE | 2022-12-05 18:55 | Diagnostic Imaging Report ---
INDICATION: Chest pain. COMPARISON: 09/09/2022. FINDINGS: The lungs appear clear without focal airspace opacities or consolidation. There are no findings of an effusion. Lungs are mildly hyperinflated. There is no evidence of a pneumothorax. Heart size and mediastinal contours appear appropriate. Pulmonary vascularity appears within normal limits. There is no acute or suspicious osseous abnormality demonstrated. There has been prior cervical ACDF and there is a thoracic epidural stimulator. IMPRESSION: Mild hyperinflation. No radiographic evidence of an acute cardiopulmonary process. Dictated by: Dictated on workstation # [id number]
[2022-12-05 18:56] LABS: ALBUMIN 4.1 GM/DL (3.2-4.5); CHLORIDE 109 MMOL/L (98-107); POTASSIUM 3.8 MMOL/L (3.6-5.0); SODIUM 140 MMOL/L (135-145)
[2022-12-05 18:57] LABS: CALCIUM 8.9 MG/DL (8.5-10.1)
[2022-12-05 18:58] LABS: GLUCOSE 72 MG/DL (70-105); TOTAL PROTEIN 6.9 GM/DL (6.4-8.2)
[2022-12-05 18:59] LABS: CARBON DIOXIDE 21 MMOL/L (21-32); INR 1.1 (0.8-1.4); PROTHROMBIN TIME PATIENT 13.9 SEC (12.2-14.7)
[2022-12-05 19:02] LABS: ALKALINE PHOSPHATASE 56 U/L (40-136); CREATININE SERUM 0.75 MG/DL (0.60-1.30); GFR ESTIMATED 111
[2022-12-05 19:03] LABS: BUN/CREATININE RATIO 11
[2022-12-05 19:05] LABS: ALANINE AMINOTRANSFERASE 36 U/L (0-55); MAGNESIUM 2.2 MG/DL (1.6-2.4)
--- NOTE | 2022-12-05 19:11 | Diagnostic Imaging Report ---
PROCEDURE: CT head and CT cervical spine without contrast. TECHNIQUE: Multiple contiguous axial images were obtained through the brain and cervical spine without the use of intravenous contrast. Sagittal and coronal reformations through the cervical spine were then performed. Auto Exposure Controls were utilized during the CT exam to meet ALARA standards for radiation dose reduction. INDICATION: Trauma. Seizure. Fall. Head and neck pain. COMPARISON: CT head 09/12/2021. FINDINGS: There is no CT finding of an acute intracranial abnormality. There is no evidence of intracranial hemorrhage. There is no intracranial mass effect or shift. There is no hydrocephalus. There is no abnormal extra-axial collection. There is no finding of territorial loss of cordero-white differentiation. There is no edema. There is no CT finding of an acute calvarial fracture. The mastoid air cells are clear. There is no fluid in the paranasal sinuses. The orbital contents are normal. Cervical spine demonstrates changes of a previous ACDF of C6-C7. Cervical spinal alignment is normal. There are normal craniocervical junction relationships. Facets are normally aligned. There is no facet joint or disc space widening. Vertebral body heights are maintained. There is no acute cervical spine fracture. Soft tissues of the neck demonstrate no acute process. The visualized portion of lung apices are clear. IMPRESSION: 1. No CT evidence of an acute intracranial abnormality. 2. No identified calvarial or facial fracture. 3. Previous operative changes of an ACDF of C6-C7. There is no cervical spine fracture or traumatic malalignment. Dictated by: Dictated on workstation # [id number]
[2022-12-05 19:49] LABS: BILIRUBIN,TOTAL 0.4 MG/DL (0.1-1.0)
[2022-12-05 20:35] VITALS: BP 108/76
== END 2022-12-05 20:39 | disposition home or self-care (01) ==
LOC: EDUNIT# 18:11 → ER 18:14
DX: S09.90XA Unspecified injury of head, initial encounter (principal); G40.909 Epilepsy, unspecified, not intractable, without status epilepticus; R91.8 Other nonspecific abnormal finding of lung field; F17.210 Nicotine dependence, cigarettes, uncomplicated; G47.30 Sleep apnea, unspecified; Z99.89 Dependence on other enabling machines and devices; Z87.820 Personal history of traumatic brain injury; W18.30XA Fall on same level, unspecified, initial encounter; W22.8XXA Striking against or struck by other objects, initial encounter
CPT/HCPCS: 36415; 70450; 71045; 72125; 80053; 83735; 84484; 85025; 85610; 85730; 93005